=== PATIENT | male | born 1960 | race African-American/Black ===

== ENCOUNTER 2016-12-30 14:18 | Inpatient (IN) | payer OTHER ==
[2016-12-30 15:46] VITALS: BMI 24.0
--- NOTE | 2016-12-30 16:48 | HP ---
CIWA Score - CIWA Score Nausea/Vomitin Muscle Tremors: 4-Moderate,w/Arms Extend Anxiety: 4-Mod. Anxious/Guarded Agitation: 4-Moderately Restless Paroxysmal Sweats: 2 Orientation: 1-Uncertain about Date Tacttile Disturbances: 0-None Auditory Disturbances: 0-None Visual Disturbances: 0-None Headache: 3-Moderate CIWA-Ar Total Score: 20 Admission ROS BHS - HPI Chief Complaint: withdrawal sx Allergies/Adverse Reactions: Allergies Allergy/AdvReac Type Severity Reaction Status Date / Time No Known Allergies Allergy Verified 12/30/16 17:29 History of Present Illness: 56 years old male with long history of alcohol dependence, arthritis and hiv ( not on medication 01/2016) of right ankle denies mental illness, longest sobriety 8 years is admitted to detox Exam Limitations: No Limitations - Ebola screening Have you traveled outside of the country in the last 21 days: No Have you had contact with anyone from an Ebola affected area: No Have you been sick,other than usual withdrawal symptoms: No Do you have a fever: No - Review of Systems Constitutional: Chills, Loss of Appetite, Changes in sleep, Unexplained wgt Loss EENT: reports: No Symptoms Reported Respiratory: reports: No Symptoms reported Cardiac: reports: No Symptoms Reported GI: reports: Nausea, Poor Appetite, Poor Fluid Intake, Vomiting, Indigestion, Abdominal cramping : reports: No Symptoms Reported Musculoskeletal: reports: Joint Pain, Neck Pain Integumentary: reports: No Symptoms Reported Neuro: reports: Tremors Endocrine: reports: No Symptoms Reported Hematology: reports: No Symptoms Reported Psychiatric: reports: Judgement Intact, Mood/Affect Appropiate Other Systems: Reviewed and Negative Patient History - Patient Medical History Hx Anemia: Yes (NO MED) Hx Asthma: No Hx Chronic Obstructive Pulmonary Disease (COPD): No Hx Cancer: No Hx Cardiac Disorders: No Hx Congestive Heart Failure: No Hx Hypertension: No Hx Hypercholesterolemia: No Hx Pacemaker: No HX Cerebrovascular Accident: No Hx Seizures: No Hx Diabetes: No Hx Gastrointestinal Disorders: No Hx Liver Disease: No Hx Genitourinary Disorders: No Hx Sexually Transmitted Disorders: No Hx Renal Disease (ESRD): No Hx Thyroid Disease: No Hx Human Immunodeficiency Virus (HIV): Yes (SINCE 12/18/93 ON MEDS, LAST TAKEN ON 03/20/16) Hx Hepatitis C: Yes Hx Depression: No Hx Suicide Attempt: No (DENIES) Hx Bipolar Disorder: No Hx Schizophrenia: No - Patient Surgical History Past Surgical History: No Hx Neurologic Surgery: No Hx Cataract Extraction: No Hx Cardiac Surgery: No Hx Lung Surgery: No Hx Breast Surgery: No Hx Breast Biopsy: No Hx Abdominal Surgery: No Hx Appendectomy: No Hx Cholecystectomy: No Hx Genitourinary Surgery: No Hx Orthopedic Surgery: No - PPD History Previous Implant?: Yes Documented Results: Positive w/o proof Implanted On Prior R Admission?: No PPD to be Administered?: No - Smoking Cessation Smoking history: Never smoked Have you smoked in the past 12 months: Yes Aproximately how many cigarettes per day: 0 Cigars Per Day: 0 Hx Chewing Tobacco Use: No Initiated information on smoking cessation: No 'Breaking Loose' booklet given: 12/30/16 - Substance & Tx. History Hx Alcohol Use: Yes Hx Substance Use: No Substance Use Type: Alcohol Hx Substance Use Treatment: Yes - Substances Abused Alcohol Route: Oral Frequency: Daily Amount used: 1/2 gallon rum Age of first use: 23 Date of Last Use: 12/29/16 Family Disease History - Family Disease History Family Disease History: Other: Father (), Mother () Admission Physical Exam BHS - Vital Signs Vital Signs: Vital Signs - 24 hr 12/30/16 15:45 Temperature 97 F L Pulse Rate 97 H Respiratory 20 Rate Blood Pressure 131/80 - Physical General Appearance: Yes: Appropriately Dressed, Moderate Distress, Thin, Tremorous, Irritable, Sweating, Anxious HEENTM: Yes: Hearing grossly Normal, Normal ENT Inspection, Normocephalic, Normal Voice Respiratory: Yes: Chest Non-Tender, Lungs Clear, Normal Breath Sounds, No Respiratory Distress, No Accessory Muscle Use Neck: Yes: Supple, Trachea in good position Breast: Yes: Breasts Symetrical Cardiology: Yes: Regular Rhythm, Regular Rate, S1, S2 Abdominal: Yes: Non Tender, Soft Genitourinary: Yes: Within Normal Limits Back: Yes: Normal Inspection Musculoskeletal: Yes: full range of Motion, Gait Steady Extremities: Yes: Normal Range of Motion, Non-Tender, Tremors 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: Yes: Alert, Motor Strength 5/5, Normal Mood/Affect, Normal Response Integumentary: Yes: Warm, Moist Lymphatic: Yes: Within Normal Limits - Diagnostic (1) HIV (human immunodeficiency virus infection) Current Visit: Yes Status: Chronic Comment: not on medication since 01/2016 (2) Hepatitis C Current Visit: Yes Status: Chronic Qualifiers: Viral hepatitis chronicity: chronic Hepatic coma status: without hepatic coma Qualified Code(s): B18.2 - Chronic viral hepatitis C (3) Alcohol dependence with uncomplicated withdrawal Current Visit: Yes Status: Acute (4) GERD (gastroesophageal reflux disease) Current Visit: Yes Status: Acute Qualifiers: Esophagitis presence: without esophagitis Qualified Code(s): K21.9 - Gastro-esophageal reflux disease without esophagitis (5) Weight loss Current Visit: Yes Status: Acute (6) Positive PPD, treated Current Visit: Yes Status: Resolved Cleared for Admission S - Detox or Rehab S Level of Care: Medically Managed Detox Regimen/Protocol: Librium S Breath Alcohol Content Breath Alcohol Content: 0 Urine Drug Screen - Results Drug Screen Negative: Yes
[2016-12-30] MEDS ORDERED: LOPERAMIDE HCL 2 MG CAPSULE PO PRN (16:53)
[2016-12-30] MEDS ORDERED: hydrOXYzine PAMOATE 50 MG CAPSULE (FP) PO PRN (16:53)
[2016-12-30] MEDS ORDERED: ACETAMINOPHEN 325 MG TABLET (FP) PO PRN (16:53)
[2016-12-30] MEDS ORDERED: MAGNESIUM HYDROX 2400MG/30ML ORAL SUSPENSION 30 ML CUP PO PRN (16:53)
[2016-12-30] MEDS ORDERED: guaiFENesin/D-METHORPHAN HB 10 ML UNIT-DOSE CUPS PO PRN (16:53)
[2016-12-30] MEDS ORDERED: IBUPROFEN 400 MG TABLET (FP) PO PRN (16:53)
[2016-12-30] MEDS ORDERED: chlordiazePOXIDE HCL 25 MG CAPSULE PO PRN (16:53)
[2016-12-30] MEDS ORDERED: MENTHOL/PHENOL 1 EACH UD MM PRN (16:53)
[2016-12-30] MEDS ORDERED: P-EPHED 60MG/TRIPROLIDI 2.5MG TABLET PO PRN (16:53)
[2016-12-30] MEDS ORDERED: MAG HYDROX/AL HYDROX/SIMETH 30 ML UNIT-DOSE CUP PO PRN (16:53)
[2016-12-30] MEDS ORDERED: MAGNESIUM CITRATE 300 ML BOTTLE PO PRN (16:53)
[2016-12-30] MEDS ORDERED: chlordiazePOXIDE HCL 25 MG CAPSULE PO ONE (18:00)
[2016-12-30] MEDS ORDERED: diphenhydrAMINE HCL 50 MG CAPSULE PO PRN (22:00)
[2016-12-30] MEDS: chlordiazePOXIDE HCL 25 MG CAPSULE PO SCH (23:25)
[2016-12-30] MEDS: THIAMINE HCL 100 MG TABLET (FP) PO SCH (23:26)
[2016-12-31] MEDS: chlordiazePOXIDE HCL 25 MG CAPSULE PO SCH ×4 (06:15→22:35)
[2016-12-31 09:59] LABS: MCH 28.1 pg (25.7-33.7); MCHC 32.3 g/dl (32.0-35.9); MEAN CELL VOLUME 86.9 fl (80-96); MEAN PLT VOLUME 9.3 fl (7.5-11.1); PLATELET COUNT 280 K/MM3 (134-434); RDW 17.3 % (11.9-15.9); WHITE BLOOD COUNT 6.4 K/mm3 (4.0-10.0)
[2016-12-31] MEDS: PRENATAL VITAMINS W/ FOLIC ACID TABLET (FP) PO SCH (10:27)
[2016-12-31] MEDS: RANITIDINE HCL 150 MG TABLET (FP) PO SCH ×2 (10:27→22:35)
[2016-12-31 10:31] LABS: ALBUMIN 3.9 g/dl (3.4-5.0); ALK PHOS 84 U/L (45-117); ANION GAP 12 (8-16); BILIRUBIN,TOTAL 0.6 mg/dL (0.2-1.0); CALCIUM 9.4 mg/dL (8.5-10.1); CO2 26 mmol/L (21-32); CREATININE 0.7 mg/dL (0.7-1.3); GLUCOSE,RANDOM 86 mg/dL (74-106); SGOT/AST 145 U/L (15-37); SGPT/ALT 161 U/L (12-78)
--- NOTE | 2016-12-31 10:56 | PN ---
[facility] CIWA - CIWA Score Nausea/Vomitin-No Nausea/No Vomiting Muscle Tremors: 4-Moderate,w/Arms Extend Anxiety: 4-Mod. Anxious/Guarded Agitation: 4-Moderately Restless Paroxysmal Sweats: 1-Minimal Palms Moist Orientation: 0-Oriented Tacttile Disturbances: 3-Moderate Itch/Numb/Burn Auditory Disturbances: 0-None Visual Disturbances: 0-None Headache: 0-None Present CIWA-Ar Total Score: 16 S Progress Note (SOAP) Subjective: ANXIETY,IRRITABILITY, C/O NAUSEA AND VOMITING IF HE EATS OR DRINKS SOMETHING, ABDOMINAL DISCOMFORT STATING "I HAVE LIVER CIRRHOSIS AND I WILL TAKE CARE OF IT WHEN I LEAVE HERE". PT DOES NOT APPEAR TO HAVE ANY INSIGHT CONCERNING HIS ALCOHOL DEPENDENCE AND HIS LIVER DISEASE. Objective: 12/31/16 10:56 Vital Signs Temperature 97.1 F L 12/30/16 22:20 Pulse Rate 85 12/30/16 22:20 Respiratory Rate 18 12/31/16 03:30 Blood Pressure 134/97 12/30/16 22:20 O2 Sat by Pulse Oximetry (%) Laboratory Last Values WBC 6.4 K/mm3 (4.0-10.0) D 12/31/16 06:00 RBC 4.87 M/mm3 (4.00-5.60) 12/31/16 06:00 Hgb 13.7 GM/dL (11.7-16.9) 12/31/16 06:00 Hct 42.3 % (35.4-49) 12/31/16 06:00 MCV 86.9 fl (80-96) 12/31/16 06:00 MCHC 32.3 g/dl (32.0-35.9) 12/31/16 06:00 RDW 17.3 % (11.9-15.9) H 12/31/16 06:00 Plt Count 280 K/MM3 (134-434) D 12/31/16 06:00 MPV 9.3 fl (7.5-11.1) D 12/31/16 06:00 Sodium 143 mmol/L (136-145) 12/31/16 06:00 Potassium 4.3 mmol/L (3.5-5.1) 12/31/16 06:00 Chloride 105 mmol/L (98-107) 12/31/16 06:00 Carbon Dioxide 26 mmol/L (21-32) 12/31/16 06:00 Anion Gap 12 (8-16) 12/31/16 06:00 BUN 10 mg/dL (7-18) 12/31/16 06:00 Creatinine 0.7 mg/dL (0.7-1.3) 12/31/16 06:00 Creat Clearance w eGFR > 60 (>60) 12/31/16 06:00 Random Glucose 86 mg/dL (74-106) 12/31/16 06:00 Calcium 9.4 mg/dL (8.5-10.1) 12/31/16 06:00 Total Bilirubin 0.6 mg/dL (0.2-1.0) 12/31/16 06:00 AST 145 U/L (15-37) H D 12/31/16 06:00 ALT 161 U/L (12-78) H D 12/31/16 06:00 Alkaline Phosphatase 84 U/L (45-117) D 12/31/16 06:00 Total Protein 8.0 g/dl (6.4-8.2) 12/31/16 06:00 Albumin 3.9 g/dl (3.4-5.0) D 12/31/16 06:00 LABS NOTED Assessment: 12/31/16 11:03 WITHDRAWAL SX Plan: CONTINUE DETOX REPEAT AST,ALT;INR ON 01/02/17
[2016-12-31 16:34] LABS: URINE APPEARANCE CLEAR; URINE BILIRUBIN NEGATIVE (NEGATIVE); URINE BLOOD NEGATIVE (NEGATIVE); URINE COLOR AMBER; URINE GLUCOSE (UA) NEGATIVE (NEGATIVE); URINE KETONE NEGATIVE (NEGATIVE); URINE LEUK ESTERASE NEGATIVE (NEGATIVE); URINE NITRITE NEGATIVE (NEGATIVE); URINE PROTEIN NEGATIVE (NEGATIVE); URINE UROBILINOGEN 4.0 E.U/dl E.U./dl (0.2-1.0)
[2016-12-31] MEDS: THIAMINE HCL 100 MG TABLET (FP) PO SCH (22:35)
--- NOTE | 2016-12-31 23:36 | EKG ---
Test Reason : Blood Pressure : / mmHG Vent. Rate : 080 BPM Atrial Rate : 080 BPM P-R Int : 118 ms QRS Dur : 080 ms QT Int : 398 ms P-R-T Axes : 069 072 045 degrees QTc Int : 459 ms NORMAL SINUS RHYTHM WITH SINUS ARRHYTHMIA NORMAL ECG NO PREVIOUS ECGS AVAILABLE Confirmed by KHADIJAH ENCINAS, JULITO ([id number]) on 12/31/2016 11:35:49 PM Referred By: Confirmed By:JULITO LUCIO MD
[2017-01-01] MEDS: chlordiazePOXIDE HCL 25 MG CAPSULE PO SCH ×3 (06:13→17:35)
--- NOTE | 2017-01-01 09:59 | PN ---
[facility] CIWA - CIWA Score Nausea/Vomitin-No Nausea/No Vomiting Muscle Tremors: 4-Moderate,w/Arms Extend Anxiety: 4-Mod. Anxious/Guarded Agitation: 4-Moderately Restless Paroxysmal Sweats: 1-Minimal Palms Moist Orientation: 0-Oriented Tacttile Disturbances: 3-Moderate Itch/Numb/Burn Auditory Disturbances: 0-None Visual Disturbances: 0-None Headache: 0-None Present CIWA-Ar Total Score: 16 S Progress Note (SOAP) Subjective: ANXIETY,IRRITABILITY, AGITATION. AMBIVALENT WITH MEDICALLY MANAGED DETOX PROTOCOL. REFUSING LIBRIUM AND CLAIMS HE HAS CIRRHOSIS AND DON'T WANT THE LIBRIUM BECAUSE OF HIS LIVER. Objective: 01/01/17 09:55 Vital Signs Temperature 96.8 F L 01/01/17 09:35 Pulse Rate 105 H 01/01/17 09:35 Respiratory Rate 20 01/01/17 09:35 Blood Pressure 125/90 01/01/17 09:35 O2 Sat by Pulse Oximetry (%) Laboratory Last Values WBC 6.4 K/mm3 (4.0-10.0) D 12/31/16 06:00 RBC 4.87 M/mm3 (4.00-5.60) 12/31/16 06:00 Hgb 13.7 GM/dL (11.7-16.9) 12/31/16 06:00 Hct 42.3 % (35.4-49) 12/31/16 06:00 MCV 86.9 fl (80-96) 12/31/16 06:00 MCHC 32.3 g/dl (32.0-35.9) 12/31/16 06:00 RDW 17.3 % (11.9-15.9) H 12/31/16 06:00 Plt Count 280 K/MM3 (134-434) D 12/31/16 06:00 MPV 9.3 fl (7.5-11.1) D 12/31/16 06:00 Sodium 143 mmol/L (136-145) 12/31/16 06:00 Potassium 4.3 mmol/L (3.5-5.1) 12/31/16 06:00 Chloride 105 mmol/L (98-107) 12/31/16 06:00 Carbon Dioxide 26 mmol/L (21-32) 12/31/16 06:00 Anion Gap 12 (8-16) 12/31/16 06:00 BUN 10 mg/dL (7-18) 12/31/16 06:00 Creatinine 0.7 mg/dL (0.7-1.3) 12/31/16 06:00 Creat Clearance w eGFR > 60 (>60) 12/31/16 06:00 Random Glucose 86 mg/dL (74-106) 12/31/16 06:00 Calcium 9.4 mg/dL (8.5-10.1) 12/31/16 06:00 Total Bilirubin 0.6 mg/dL (0.2-1.0) 12/31/16 06:00 AST 145 U/L (15-37) H D 12/31/16 06:00 ALT 161 U/L (12-78) H D 12/31/16 06:00 Alkaline Phosphatase 84 U/L (45-117) D 12/31/16 06:00 Total Protein 8.0 g/dl (6.4-8.2) 12/31/16 06:00 Albumin 3.9 g/dl (3.4-5.0) D 12/31/16 06:00 Urine Color Jaky 12/31/16 13:25 Urine Appearance Clear 12/31/16 13:25 Urine pH 7.0 (5.0-8.0) 12/31/16 13:25 Ur Specific [place] 1.017 (1.001-1.035) 12/31/16 13:25 Urine Protein Negative (NEGATIVE) 12/31/16 13:25 Urine Glucose (UA) Negative (NEGATIVE) 12/31/16 13:25 Urine Ketones Negative (NEGATIVE) 12/31/16 13:25 Urine Blood Negative (NEGATIVE) 12/31/16 13:25 Urine Nitrite Negative (NEGATIVE) 12/31/16 13:25 Urine Bilirubin Negative (NEGATIVE) 12/31/16 13:25 Urine Urobilinogen 4.0 e.u/dl E.U./dl (0.2-1.0) 12/31/16 13:25 Ur Leukocyte Esterase Negative (NEGATIVE) 12/31/16 13:25 RPR Titer Nonreactive (NONREACTIVE) 12/31/16 06:00 LABS NOTED WNL Assessment: 01/01/17 09:55 WITHDRAWAL SX Plan: CONTINUE DETOX PT EXPLAINED DETOX PROTOCOL AND NEED TO REMAIN SOBER.
[2017-01-01] MEDS: PRENATAL VITAMINS W/ FOLIC ACID TABLET (FP) PO SCH (10:25)
[2017-01-01] MEDS: RANITIDINE HCL 150 MG TABLET (FP) PO SCH ×2 (10:25→22:36)
[2017-01-01] MEDS: THIAMINE HCL 100 MG TABLET (FP) PO SCH (22:36)
[2017-01-01] MEDS: chlordiazePOXIDE 5 MG CAPSULE PO SCH (22:36)
[2017-01-02] MEDS: chlordiazePOXIDE 5 MG CAPSULE PO SCH (05:49)
[2017-01-02 06:05] VITALS: BP 111/86; PULSE 99; TEMP 97.2
--- NOTE | 2017-01-02 09:14 | DS ---
[facility] Detox Discharge Summary Admission Date: 12/30/16 Discharge Date: 01/02/17 - History Present History: Alcohol Dependence Additional Comments: PT HAS NOT BEEN COMPLYING WITH MEDICATION MANAGEMENT PROTOCOL. PT ALSO REFUSED AFTERCARE REFERRAL BY HIS COUNSELOR, BRANDON. STATES HE NEEDS TO F/U AT [facility] WITH HIS COMPOSITE ENGINEER FOR HIS TREATMENT. ALERT ORIENTED X 3. NAD. D/C PT TODAY TO F/U AT [place] PER PT'S NEED. Pertinent Past History: HIV+ WEIGHT LOSS GERD UMBILICAL HERNIA - Physical Exam Results Vital Signs: Vital Signs Temperature 97.2 F L 01/02/17 06:05 Pulse Rate 99 H 01/02/17 06:05 Respiratory Rate 18 01/02/17 06:05 Blood Pressure 111/86 01/02/17 06:05 O2 Sat by Pulse Oximetry (%) - Treatment Hospital Course: Discharged Condition Good - Medication Discharge Medications: Ambulatory Orders Atazanavir [Reyataz -] 300 mg PO HS 07/24/12 Emtricitabine/Tenofovir [Truvada -] 1 tab PO HS 07/24/12 Ritonavir [Norvir] 100 mg PO HS 07/24/12 - Diagnosis (1) Alcohol dependence with uncomplicated withdrawal Current Visit: Yes Status: Acute (2) GERD (gastroesophageal reflux disease) Current Visit: Yes Status: Chronic Qualifiers: Esophagitis presence: without esophagitis Qualified Code(s): K21.9 - Gastro-esophageal reflux disease without esophagitis (3) Weight loss Current Visit: Yes Status: Chronic (4) HIV (human immunodeficiency virus infection) Current Visit: Yes Status: Chronic (5) Hepatitis C Current Visit: Yes Status: Chronic Qualifiers: Viral hepatitis chronicity: chronic Hepatic coma status: without hepatic coma Qualified Code(s): B18.2 - Chronic viral hepatitis C - AMA Did Patient Leave Against Medical Advice: No
[2017-01-02 10:23] LABS: SGOT/AST 139 U/L (15-37); SGPT/ALT 173 U/L (12-78)
[2017-01-02 10:55] LABS: INR 1.17 (0.82-1.09); PROTHROMBIN TIME (PATIENT) 12.9 SEC (9.98-11.88)
[2017-01-02] MEDS ORDERED: chlordiazePOXIDE HCL 10 MG CAPSULE PO SCH (23:00)
== END 2017-01-02 09:18 | disposition home or self-care (01) | DRG 775 ==
LOC: YASAS 14:18 → Y3N 17:41
PROVIDERS: ADMIT Internal Medicine; ATTEND Internal Medicine
PROC: HZ2ZZZZ Detoxification Services for Substance Abuse Treatment (ICD-10-PCS; principal; 2017-01-02)
DX: F10.230 Alcohol dependence with withdrawal, uncomplicated (principal); B18.2 Chronic viral hepatitis C; K21.9 Gastro-esophageal reflux disease without esophagitis; Z21 Asymptomatic human immunodeficiency virus [HIV] infection status; R76.11 Nonspecific reaction to tuberculin skin test without active tuberculosis; R63.4 Abnormal weight loss; Z68.24 Body mass index [BMI] 24.0-24.9, adult
CPT/HCPCS: 36415; 71020-TC; 80053; 81003; 84450; 84460; 85027; 85610; 86593; 93005; 93010

== ENCOUNTER 2017-11-02 10:19 | Inpatient (IN) | payer OTHER ==
[2017-11-02 11:07] VITALS: BMI 22.8
--- NOTE | 2017-11-02 12:21 | HP ---
CIWA Score - CIWA Score Nausea/Vomitin Muscle Tremors: 4-Moderate,w/Arms Extend Anxiety: 3 Agitation: 3 Paroxysmal Sweats: 3 Orientation: 3-Disoriented Date>2 days Tacttile Disturbances: 0-None Auditory Disturbances: 0-None Visual Disturbances: 0-None Headache: 0-None Present CIWA-Ar Total Score: 21 Admission ROS BHS - HPI Chief Complaint: Withdrawal sx Allergies/Adverse Reactions: Allergies Allergy/AdvReac Type Severity Reaction Status Date / Time No Known Allergies Allergy Verified 12/30/16 17:29 History of Present Illness: 57y/o man with a long hx of alcoholism, admitted for detox. Pt has been in previous detox, reports 12 years sobriety while working and attending AA meetings. Exam Limitations: No Limitations - Ebola screening Have you traveled outside of the country in the last 21 days: No (N) Have you had contact with anyone from an Ebola affected area: No Have you been sick,other than usual withdrawal symptoms: No Do you have a fever: No - Review of Systems Constitutional: Diaphoresis EENT: reports: Nose Congestion Respiratory: reports: No Symptoms reported Cardiac: reports: No Symptoms Reported GI: reports: Nausea, Vomiting : reports: Frequency Musculoskeletal: reports: Joint Pain Integumentary: reports: Sweating Neuro: reports: Tremors Endocrine: reports: No Symptoms Reported Hematology: reports: No Symptoms Reported Psychiatric: reports: No Sypmtoms Reported Other Systems: Reviewed and Negative Patient History - Patient Medical History Hx Anemia: No Hx Asthma: No Hx Chronic Obstructive Pulmonary Disease (COPD): No Hx Cancer: No Hx Cardiac Disorders: No Hx Congestive Heart Failure: No Hx Hypertension: No Hx Hypercholesterolemia: No Hx Pacemaker: No HX Cerebrovascular Accident: No Hx Seizures: No Hx Diabetes: No Hx Gastrointestinal Disorders: No Hx Liver Disease: No Hx Genitourinary Disorders: No Hx Sexually Transmitted Disorders: No Hx Renal Disease (ESRD): No Hx Thyroid Disease: No Hx Human Immunodeficiency Virus (HIV): Yes (Pt had recent sensitivity test at [facility], waiting for result to resume meds.) Hx Hepatitis C: Yes (No tx. yet) Hx Depression: No Hx Suicide Attempt: No (DENIES) Hx Bipolar Disorder: No Hx Schizophrenia: No (?schizoaffective d/o many years ago, no meds) Other Medical History: Fractured R ankle 05/2016 - Patient Surgical History Past Surgical History: No Hx Neurologic Surgery: No Hx Cataract Extraction: No Hx Cardiac Surgery: No Hx Lung Surgery: No Hx Breast Surgery: No Hx Breast Biopsy: No Hx Abdominal Surgery: No Hx Appendectomy: No Hx Cholecystectomy: No Hx Genitourinary Surgery: No Hx Section: No Hx Orthopedic Surgery: Yes (Rt ankle ORIF with screws in place.) Anesthesia Reaction: No - PPD History Previous Implant?: Yes Documented Results: Positive w/o proof PPD to be Administered?: No - Smoking Cessation Smoking history: Current every day smoker Have you smoked in the past 12 months: Yes Aproximately how many cigarettes per day: 7 Cigars Per Day: 0 Hx Chewing Tobacco Use: No Initiated information on smoking cessation: Yes 'Breaking Loose' booklet given: 11/02/17 - Substance & Tx. History Hx Alcohol Use: Yes Hx Substance Use: Yes (PCP) Substance Use Type: Alcohol Hx Substance Use Treatment: Yes (Detox at [facility] - 2016) - Substances Abused Alcohol Route: Oral Frequency: Daily Amount used: Sari - 2 PINTS, BEER- 1 SIX PACK Age of first use: 19 Date of Last Use: 11/01/17 PCP Route: Smoking Frequency: 3-6 times per week Amount used: $20 Age of first use: 19 Date of Last Use: 10/30/17 Family Disease History - Family Disease History Family Disease History: Other: Father (), Mother () Admission Physical Exam [facility] - Vital Signs Vital Signs: Vital Signs - 24 hr 11/02/17 10:48 Temperature 96.1 F L Pulse Rate 95 H Respiratory 20 Rate Blood Pressure 105/71 - Physical General Appearance: Yes: Alcohol on Breath, Tremorous, Sweating, Anxious HEENTM: Yes: Nasal Congestion, Rhinorrhea Respiratory: Yes: Chest Non-Tender, Lungs Clear, Normal Breath Sounds Neck: Yes: Supple Breast: Yes: Breast Exam Deferred Cardiology: Yes: Regular Rhythm, Regular Rate, S1, S2 Abdominal: Yes: Normal Bowel Sounds, Non Tender, Flat, Soft Genitourinary: Yes: Within Normal Limits Back: Yes: Within Normal Limits Musculoskeletal: Yes: Within Normal Limits Extremities: Yes: Tremors, Other (Surgical scar R ankle) 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: Yes: Fully Oriented, Alert Integumentary: Yes: Diaphoresis Lymphatic: Yes: Within Normal Limits - Diagnostic (1) PCP dependence Current Visit: Yes Status: Acute (2) Alcohol dependence with uncomplicated withdrawal Current Visit: Yes Status: Acute (3) HIV (human immunodeficiency virus infection) Current Visit: Yes Status: Chronic Comment: not on medication since 01/2016 (4) Hepatitis C Current Visit: No Status: Chronic Qualifiers: Viral hepatitis chronicity: chronic Hepatic coma status: without hepatic coma Qualified Code(s): B18.2 - Chronic viral hepatitis C (5) Nicotine dependence Current Visit: Yes Status: Chronic Qualifiers: Nicotine product type: cigarettes Substance use status: uncomplicated Qualified Code(s): F17.210 - Nicotine dependence, cigarettes, uncomplicated Cleared for Admission S - Detox or Rehab [facility] Level of Care: Medically Managed Detox Regimen/Protocol: Librium [facility] Breath Alcohol Content Breath Alcohol Content: 0 Urine Drug Screen - Results Drug Screen Negative: No Urine Drug Screen Results: PCP-Phencyclidine, BZO-Benzodiazepines
[2017-11-02] MEDS ORDERED: MAGNESIUM HYDROX 2400MG/30ML ORAL SUSPENSION 30 ML CUP PO PRN (12:44)
[2017-11-02] MEDS ORDERED: LOPERAMIDE HCL 2 MG CAPSULE PO PRN (12:44)
[2017-11-02] MEDS ORDERED: guaiFENesin/D-METHORPHAN HB 10 ML UNIT-DOSE CUPS PO PRN (12:44)
[2017-11-02] MEDS ORDERED: ACETAMINOPHEN 325 MG TABLET (FP) PO PRN (12:44)
[2017-11-02] MEDS ORDERED: chlordiazePOXIDE HCL 25 MG CAPSULE PO ONE (12:44)
[2017-11-02] MEDS ORDERED: MENTHOL/PHENOL 1 EACH UD MM PRN (12:44)
[2017-11-02] MEDS ORDERED: P-EPHED 60MG/TRIPROLIDI 2.5MG TABLET PO PRN (12:44)
[2017-11-02] MEDS ORDERED: IBUPROFEN 400 MG TABLET (FP) PO PRN (12:44)
[2017-11-02] MEDS ORDERED: chlordiazePOXIDE HCL 25 MG CAPSULE PO PRN (12:44)
[2017-11-02] MEDS ORDERED: MAGNESIUM CITRATE 300 ML BOTTLE PO PRN (12:44)
[2017-11-02] MEDS ORDERED: NICOTINE POLACRILEX 2 MG GUM BC PRN (12:44)
[2017-11-02] MEDS ORDERED: MAG HYDROX/AL HYDROX/SIMETH 30 ML UNIT-DOSE CUP PO PRN (12:44)
[2017-11-02] MEDS: NICOTINE 14 MG/24 HOURS TOPICAL PATCH TD SCH (13:37)
[2017-11-02] MEDS: chlordiazePOXIDE HCL 25 MG CAPSULE PO SCH ×2 (17:17→22:31)
[2017-11-02 20:47] LABS: URINE APPEARANCE CLEAR; URINE BILIRUBIN NEGATIVE (NEGATIVE); URINE BLOOD NEGATIVE (NEGATIVE); URINE COLOR YELLOW; URINE GLUCOSE (UA) NEGATIVE (NEGATIVE); URINE KETONE NEGATIVE (NEGATIVE); URINE NITRITE NEGATIVE (NEGATIVE); URINE PROTEIN NEGATIVE (NEGATIVE); URINE UROBILINOGEN NEGATIVE mg/dL (0.2-1.0)
[2017-11-02] MEDS: THIAMINE HCL 100 MG TABLET (FP) PO SCH (22:32)
[2017-11-02 22:43] LABS: URINE LEUK ESTERASE Negative (NEGATIVE)
[2017-11-03] MEDS: chlordiazePOXIDE HCL 25 MG CAPSULE PO SCH ×4 (06:00→22:17)
[2017-11-03 10:06] LABS: MCH 27.8 pg (25.7-33.7); MCHC 32.5 g/dl (32.0-35.9); MEAN CELL VOLUME 85.6 fl (80-96); MEAN PLT VOLUME 8.7 fl (7.5-11.1); PLATELET COUNT 287 K/MM3 (134-434); WHITE BLOOD COUNT 6.3 K/mm3 (4.0-10.0)
[2017-11-03 10:24] LABS: ALBUMIN 3.3 g/dl (3.4-5.0); ANION GAP 5 (8-16); CALCIUM 8.4 mg/dL (8.5-10.1); CO2 30 mmol/L (21-32); GLUCOSE,RANDOM 86 mg/dL (74-106)
[2017-11-03 10:28] LABS: ALK PHOS 140 U/L (45-117); BILIRUBIN,TOTAL 0.6 mg/dL (0.2-1.0); CREATININE 0.8 mg/dL (0.7-1.3); SGOT/AST 171 U/L (15-37); SGPT/ALT 140 U/L (12-78); TOT PROT 7.5 g/dl (6.4-8.2)
[2017-11-03] MEDS: PRENATAL VITAMINS W/ FOLIC ACID TABLET (FP) PO SCH (10:56)
[2017-11-03] MEDS: NICOTINE 14 MG/24 HOURS TOPICAL PATCH TD SCH (10:59)
--- NOTE | 2017-11-03 12:04 | PN ---
S CIWA - CIWA Score Nausea/Vomitin-No Nausea/No Vomiting Muscle Tremors: 4-Moderate,w/Arms Extend Anxiety: 3 Agitation: 3 Paroxysmal Sweats: 3 Orientation: 0-Oriented Tacttile Disturbances: 0-None Auditory Disturbances: 0-None Visual Disturbances: 0-None Headache: 0-None Present CIWA-Ar Total Score: 13 S Progress Note (SOAP) Subjective: agitation sweats chills interrupted sleep Objective: 11/03/17 11:58 Vital Signs Temperature 98.2 F 11/03/17 09:36 Pulse Rate 93 H 11/03/17 09:36 Respiratory Rate 18 11/03/17 09:36 Blood Pressure 123/80 11/03/17 09:36 O2 Sat by Pulse Oximetry (%) Laboratory Tests 11/02/17 11/03/17 11/03/17 15:38 05:45 05:45 WBC 6.3 RBC 4.58 Hgb 12.7 Hct 39.2 MCV 85.6 MCH 27.8 MCHC 32.5 RDW 17.0 H Plt Count 287 MPV 8.7 Sodium 142 Potassium 4.4 Chloride 107 Carbon Dioxide 30 Anion Gap 5 L BUN 10 Creatinine 0.8 Creat Clearance w eGFR > 60 Random Glucose 86 Calcium 8.4 L Total Bilirubin 0.6 AST 171 H D ALT 140 H Alkaline Phosphatase 140 H D Total Protein 7.5 Albumin 3.3 L Urine Color Yellow Urine Appearance Clear Urine pH 5.0 D Ur Specific [place] 1.013 Urine Protein Negative Urine Glucose (UA) Negative Urine Ketones Negative Urine Blood Negative Urine Nitrite Negative Urine Bilirubin Negative Urine Urobilinogen Negative Ur Leukocyte Esterase Negative RPR Titer 11/03/17 05:45 WBC RBC Hgb Hct MCV MCH MCHC RDW Plt Count MPV Sodium Potassium Chloride Carbon Dioxide Anion Gap BUN Creatinine Creat Clearance w eGFR Random Glucose Calcium Total Bilirubin AST ALT Alkaline Phosphatase Total Protein Albumin Urine Color Urine Appearance Urine pH Ur Specific [place] Urine Protein Urine Glucose (UA) Urine Ketones Urine Blood Urine Nitrite Urine Bilirubin Urine Urobilinogen Ur Leukocyte Esterase RPR Titer Nonreactive elevated ast/alt; d/c tylenol aaox3 ambulating no acute distress Assessment: 11/03/17 11:59 withdrawal sx Plan: continue detox increase fluids
--- NOTE | 2017-11-03 13:33 | EKG ---
Test Reason : Blood Pressure : / mmHG Vent. Rate : 095 BPM Atrial Rate : 095 BPM P-R Int : 120 ms QRS Dur : 080 ms QT Int : 362 ms P-R-T Axes : 071 072 060 degrees QTc Int : 454 ms NORMAL SINUS RHYTHM POSSIBLE ANTERIOR INFARCT , AGE UNDETERMINED ABNORMAL ECG WHEN COMPARED WITH ECG OF 30-DEC-2016 18:22, NO SIGNIFICANT CHANGE WAS FOUND Confirmed by JULITO LUCIO MD ([id number]) on 11/03/2017 1:33:03 PM Referred By: Confirmed By:JULITO LUCIO MD
[2017-11-03] MEDS: THIAMINE HCL 100 MG TABLET (FP) PO SCH (22:18)
[2017-11-04] MEDS: chlordiazePOXIDE HCL 25 MG CAPSULE PO SCH ×2 (05:50→10:33)
[2017-11-04] MEDS: PRENATAL VITAMINS W/ FOLIC ACID TABLET (FP) PO SCH (10:33)
[2017-11-04] MEDS: NICOTINE 14 MG/24 HOURS TOPICAL PATCH TD SCH (10:33)
--- NOTE | 2017-11-04 11:49 | PN ---
[facility] CIWA - CIWA Score Nausea/Vomitin-No Nausea/No Vomiting Muscle Tremors: 4-Moderate,w/Arms Extend Anxiety: 3 Agitation: 2 Paroxysmal Sweats: 2 Orientation: 0-Oriented Tacttile Disturbances: 0-None Auditory Disturbances: 0-None Visual Disturbances: 0-None Headache: 0-None Present CIWA-Ar Total Score: 11 S Progress Note (SOAP) Subjective: body aches sweats shakes interrupted sleep Objective: 11/04/17 11:48 Vital Signs Temperature 98.1 F 11/04/17 09:29 Pulse Rate 84 11/04/17 09:29 Respiratory Rate 18 11/04/17 09:29 Blood Pressure 125/79 11/04/17 09:29 O2 Sat by Pulse Oximetry (%) Laboratory Tests 11/02/17 11/03/17 11/03/17 15:38 05:45 05:45 WBC 6.3 RBC 4.58 Hgb 12.7 Hct 39.2 MCV 85.6 MCH 27.8 MCHC 32.5 RDW 17.0 H Plt Count 287 MPV 8.7 Sodium 142 Potassium 4.4 Chloride 107 Carbon Dioxide 30 Anion Gap 5 L BUN 10 Creatinine 0.8 Creat Clearance w eGFR > 60 Random Glucose 86 Calcium 8.4 L Total Bilirubin 0.6 AST 171 H D ALT 140 H Alkaline Phosphatase 140 H D Total Protein 7.5 Albumin 3.3 L Urine Color Yellow Urine Appearance Clear Urine pH 5.0 D Ur Specific [place] 1.013 Urine Protein Negative Urine Glucose (UA) Negative Urine Ketones Negative Urine Blood Negative Urine Nitrite Negative Urine Bilirubin Negative Urine Urobilinogen Negative Ur Leukocyte Esterase Negative RPR Titer 11/03/17 05:45 WBC RBC Hgb Hct MCV MCH MCHC RDW Plt Count MPV Sodium Potassium Chloride Carbon Dioxide Anion Gap BUN Creatinine Creat Clearance w eGFR Random Glucose Calcium Total Bilirubin AST ALT Alkaline Phosphatase Total Protein Albumin Urine Color Urine Appearance Urine pH Ur Specific [place] Urine Protein Urine Glucose (UA) Urine Ketones Urine Blood Urine Nitrite Urine Bilirubin Urine Urobilinogen Ur Leukocyte Esterase RPR Titer Nonreactive aaox3 ambulating no acute distress Assessment: 11/04/17 11:48 withdrawal sx Plan: continue detox increase fluids motrin/tylenol prn
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
[2017-11-04] MEDS: chlordiazePOXIDE 5 MG CAPSULE PO SCH ×2 (17:18→22:20)
[2017-11-04] MEDS: THIAMINE HCL 100 MG TABLET (FP) PO SCH (22:21)
[2017-11-05] MEDS: chlordiazePOXIDE 5 MG CAPSULE PO SCH (05:45)
[2017-11-05 06:20] VITALS: BP 121/50; PULSE 72; TEMP 98.2
--- NOTE | 2017-11-05 07:27 | DS ---
[facility] Detox Discharge Summary Admission Date: 11/02/17 Discharge Date: 11/05/17 - History Present History: Alcohol Dependence, Cannabis Dependence, Cocaine Dependence, Pcp Dependence Additional Comments: 57 years old male admitted to detox from alcohol, cocaine, PCP and cannabis dependence is leaving against medical advice. Patient states that he is leaving for personal reasons and his insurance allows him to be here foe 3 days. Risk and consequences of leaving aganst medical advice explained to him. he verbalized understanding of instructions and signed the AMA form. Pertinent Past History: HIV, Hep C, nicotine dependence and GERD. - Physical Exam Results Vital Signs: Vital Signs Temperature 98.2 F 11/05/17 06:19 Pulse Rate 72 11/05/17 06:19 Respiratory Rate 18 11/05/17 06:19 Blood Pressure 121/50 11/05/17 06:19 O2 Sat by Pulse Oximetry (%) Laboratory Last Values WBC 6.3 K/mm3 (4.0-10.0) 11/03/17 05:45 RBC 4.58 M/mm3 (4.00-5.60) 11/03/17 05:45 Hgb 12.7 GM/dL (11.7-16.9) 11/03/17 05:45 Hct 39.2 % (35.4-49) 11/03/17 05:45 MCV 85.6 fl (80-96) 11/03/17 05:45 MCH 27.8 pg (25.7-33.7) 11/03/17 05:45 MCHC 32.5 g/dl (32.0-35.9) 11/03/17 05:45 RDW 17.0 % (11.9-15.9) H 11/03/17 05:45 Plt Count 287 K/MM3 (134-434) 11/03/17 05:45 MPV 8.7 fl (7.5-11.1) 11/03/17 05:45 Sodium 142 mmol/L (136-145) 11/03/17 05:45 Potassium 4.4 mmol/L (3.5-5.1) 11/03/17 05:45 Chloride 107 mmol/L (98-107) 11/03/17 05:45 Carbon Dioxide 30 mmol/L (21-32) 11/03/17 05:45 Anion Gap 5 (8-16) L 11/03/17 05:45 BUN 10 mg/dL (7-18) 11/03/17 05:45 Creatinine 0.8 mg/dL (0.7-1.3) 11/03/17 05:45 Creat Clearance w eGFR > 60 (>60) 11/03/17 05:45 Random Glucose 86 mg/dL (74-106) 11/03/17 05:45 Calcium 8.4 mg/dL (8.5-10.1) L 11/03/17 05:45 Total Bilirubin 0.6 mg/dL (0.2-1.0) 11/03/17 05:45 AST 171 U/L (15-37) H D 11/03/17 05:45 ALT 140 U/L (12-78) H 11/03/17 05:45 Alkaline Phosphatase 140 U/L (45-117) H D 11/03/17 05:45 Total Protein 7.5 g/dl (6.4-8.2) 11/03/17 05:45 Albumin 3.3 g/dl (3.4-5.0) L 11/03/17 05:45 Urine Color Yellow 11/02/17 15:38 Urine Appearance Clear 11/02/17 15:38 Urine pH 5.0 (5.0-8.0) D 11/02/17 15:38 Ur Specific [place] 1.013 (1.001-1.035) 11/02/17 15:38 Urine Protein Negative (NEGATIVE) 11/02/17 15:38 Urine Glucose (UA) Negative (NEGATIVE) 11/02/17 15:38 Urine Ketones Negative (NEGATIVE) 11/02/17 15:38 Urine Blood Negative (NEGATIVE) 11/02/17 15:38 Urine Nitrite Negative (NEGATIVE) 11/02/17 15:38 Urine Bilirubin Negative (NEGATIVE) 11/02/17 15:38 Urine Urobilinogen Negative mg/dL (0.2-1.0) 11/02/17 15:38 Ur Leukocyte Esterase Negative (NEGATIVE) 11/02/17 15:38 RPR Titer Nonreactive (NONREACTIVE) 11/03/17 05:45 labs reviewed Pertinent Admission Physical Exam Findings: Alcohol withdrawal symptoms - Medication Discharge Medications: Ambulatory Orders Atazanavir [Reyataz -] 300 mg PO HS 07/24/12 Emtricitabine/Tenofovir [Truvada -] 1 tab PO HS 07/24/12 Ritonavir [Norvir] 100 mg PO HS 07/24/12 - Diagnosis (1) Alcohol dependence with uncomplicated withdrawal Status: Chronic (2) Cannabis dependence Status: Chronic (3) PCP dependence Status: Chronic (4) GERD (gastroesophageal reflux disease) Status: Chronic Qualifiers: Esophagitis presence: without esophagitis Qualified Code(s): K21.9 - Gastro -esophageal reflux disease without esophagitis (5) HIV (human immunodeficiency virus infection) Status: Chronic (6) Hepatitis C Status: Chronic Qualifiers: Viral hepatitis chronicity: chronic Hepatic coma status: without hepatic coma Qualified Code(s): B18.2 - Chronic viral hepatitis C (7) Nicotine dependence Status: Chronic Qualifiers: Nicotine product type: cigarettes Substance use status: uncomplicated Qualified Code(s): F17.210 - Nicotine dependence, cigarettes, uncomplicated - AMA Did Patient Leave Against Medical Advice: Yes
[2017-11-05] MEDS ORDERED: chlordiazePOXIDE HCL 10 MG CAPSULE PO SCH (17:00)
== END 2017-11-05 06:10 | disposition left against medical advice (07) | DRG 770 ==
LOC: YASAS 10:19 → Y6N 12:41
PROVIDERS: ADMIT Internal Medicine; ATTEND Internal Medicine
PROC: HZ2ZZZZ Detoxification Services for Substance Abuse Treatment (ICD-10-PCS; principal; 2017-11-02)
DX: F10.230 Alcohol dependence with withdrawal, uncomplicated (principal); F14.20 Cocaine dependence, uncomplicated; F12.20 Cannabis dependence, uncomplicated; F16.20 Hallucinogen dependence, uncomplicated; F17.210 Nicotine dependence, cigarettes, uncomplicated; B18.2 Chronic viral hepatitis C; K21.9 Gastro-esophageal reflux disease without esophagitis; Z21 Asymptomatic human immunodeficiency virus [HIV] infection status
CPT/HCPCS: 36415; 80053; 81003; 85027; 86593; 93005; 93010

== ENCOUNTER 2018-06-17 12:42 | Inpatient (IN) | payer OTHER ==
[2018-06-17 14:14] VITALS: BMI 21.9
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
[2018-06-17] MEDS ORDERED: chlordiazePOXIDE HCL 25 MG CAPSULE PO PRN (18:28)
[2018-06-17] MEDS ORDERED: MENTHOL/PHENOL 1 EACH UD MM PRN (18:28)
[2018-06-17] MEDS ORDERED: ACETAMINOPHEN 325 MG TABLET (FP) PO PRN (18:28)
[2018-06-17] MEDS ORDERED: hydrOXYzine PAMOATE 50 MG CAPSULE (FP) PO PRN (18:28)
[2018-06-17] MEDS ORDERED: guaiFENesin/D-METHORPHAN HB 10 ML UNIT-DOSE CUPS PO PRN (18:28)
[2018-06-17] MEDS ORDERED: P-EPHED 60MG/TRIPROLIDI 2.5MG TABLET PO PRN (18:28)
[2018-06-17] MEDS ORDERED: LOPERAMIDE HCL 2 MG CAPSULE PO PRN (18:28)
[2018-06-17] MEDS ORDERED: MAGNESIUM CITRATE 300 ML BOTTLE PO PRN (18:28)
[2018-06-17] MEDS ORDERED: MAGNESIUM HYDROX 2400MG/30ML ORAL SUSPENSION 30 ML CUP PO PRN (18:28)
[2018-06-17] MEDS ORDERED: IBUPROFEN 400 MG TABLET (FP) PO PRN (18:28)
[2018-06-17] MEDS ORDERED: MAG HYDROX/AL HYDROX/SIMETH 30 ML UNIT-DOSE CUP PO PRN (18:28)
[2018-06-17] MEDS ORDERED: MELATONIN 5 MG TABLETS PO PRN (22:00)
[2018-06-17] MEDS: NAPROXEN 500 MG TABLET (FP) PO SCH (23:21)
[2018-06-17] MEDS: chlordiazePOXIDE HCL 25 MG CAPSULE PO SCH (23:21)
[2018-06-17] MEDS: THIAMINE HCL 100 MG TABLET (FP) PO SCH (23:23)
[2018-06-18 02:15] LABS: URINE APPEARANCE CLEAR; URINE BILIRUBIN NEGATIVE (<2.0 mg/dL); URINE COLOR STRAW; URINE GLUCOSE (UA) NEGATIVE (NEGATIVE); URINE KETONE NEGATIVE (NEGATIVE); URINE LEUK ESTERASE NEGATIVE (NEGATIVE); URINE NITRITE NEGATIVE (NEGATIVE); URINE PROTEIN NEGATIVE (NEGATIVE); URINE UROBILINOGEN NEGATIVE mg/dL (0.2-1.0)
[2018-06-18] MEDS: chlordiazePOXIDE HCL 25 MG CAPSULE PO SCH ×3 (05:38→17:41)
[2018-06-18] MEDS ORDERED: PRENATAL VITAMINS W/ FOLIC ACID TABLET (FP) PO SCH (10:00)
[2018-06-18] MEDS ORDERED: SILVER SULFADIAZINE 1% TOP CREAM 50 GM JAR TP SCH (10:00)
[2018-06-18 10:10] LABS: HEMATOCRIT 39.3 % (35.4-49); HEMOGLOBIN 12.7 GM/dL (11.7-16.9); MCH 28.5 pg (25.7-33.7); MCHC 32.2 g/dl (32.0-35.9); MEAN CELL VOLUME 88.6 fl (80-96); MEAN PLT VOLUME 8.3 fl (7.5-11.1); PLATELET COUNT 280 K/MM3 (134-434); RBC 4.44 M/mm3 (4.00-5.60); RDW 18.3 % (11.9-15.9); WHITE BLOOD COUNT 4.6 K/mm3 (4.0-10.0)
[2018-06-18] MEDS: NAPROXEN 500 MG TABLET (FP) PO SCH ×2 (10:44→22:21)
[2018-06-18 10:49] LABS: BILIRUBIN,TOTAL 0.3 mg/dL (0.2-1.0); CHLORIDE 109 mmol/L (98-107); POTASSIUM 4.8 mmol/L (3.5-5.1); SGOT/AST 49 U/L (15-37); SGPT/ALT 56 U/L (12-78); SODIUM 144 mmol/L (136-145)
--- NOTE | 2018-06-18 10:52 | PN ---
S CIWA - CIWA Score Nausea/Vomitin-No Nausea/No Vomiting Muscle Tremors: 3 Anxiety: 4-Mod. Anxious/Guarded Agitation: 4-Moderately Restless Paroxysmal Sweats: 1-Minimal Palms Moist Orientation: 0-Oriented Tacttile Disturbances: 0-None Auditory Disturbances: 0-None Visual Disturbances: 0-None Headache: 0-None Present CIWA-Ar Total Score: 12 BHS Progress Note (SOAP) Subjective: ANXIETY,IRRITABILITY,PAIN TO BOTH KNEES AND LEGS. Objective: 06/18/18 10:52 Vital Signs 06/18/18 06/18/18 06/18/18 03:30 06:30 06:36 Temperature 98.0 F Pulse Rate 72 Respiratory 18 18 18 Rate Blood Pressure 138/87 Laboratory Tests 06/17/18 06/18/18 22:36 07:30 WBC 4.6 RBC 4.44 Hgb 12.7 Hct 39.3 MCV 88.6 MCH 28.5 MCHC 32.2 RDW 18.3 H Plt Count 280 MPV 8.3 Urine Color Straw Urine Appearance Clear Urine pH 6.0 Ur Specific [place] 1.002 Urine Protein Negative Urine Glucose (UA) Negative Urine Ketones Negative Urine Blood Negative Urine Nitrite Negative Urine Bilirubin Negative Urine Urobilinogen Negative Ur Leukocyte Esterase Negative OTHER LABS PENDING Assessment: 06/18/18 10:52 WITHDRAWAL SX Plan: CONTINUE DETOX
[2018-06-18 11:06] LABS: ALBUMIN 3.1 g/dl (3.4-5.0); ALK PHOS 82 U/L (45-117); ANION GAP 6 (8-16); BLOOD UREA NITROGEN 14 mg/dL (7-18); CALCIUM 8.3 mg/dL (8.5-10.1); CO2 29 mmol/L (21-32); CREATININE 0.8 mg/dL (0.7-1.3); GLUCOSE,RANDOM 77 mg/dL (74-106); TOT PROT 6.6 g/dl (6.4-8.2)
--- NOTE | 2018-06-18 14:26 | EKG ---
Test Reason : Blood Pressure : / mmHG Vent. Rate : 069 BPM Atrial Rate : 069 BPM P-R Int : 102 ms QRS Dur : 072 ms QT Int : 424 ms P-R-T Axes : 056 064 050 degrees QTc Int : 454 ms SINUS RHYTHM WITH SHORT RI OTHERWISE NORMAL ECG WHEN COMPARED WITH ECG OF 02-NOV-2017 14:33, NO SIGNIFICANT CHANGE WAS FOUND Confirmed by KATIE ECHEVARRIA MD ([id number]) on 06/18/2018 2:26:08 PM Referred By: Confirmed By:KATIE ECHEVARRIA MD
--- NOTE | 2018-06-18 15:49 | CONSULT ---
[facility] Psychiatric Consult - Data Date of interview: 06/18/18 Admission source: [facility] Identifying data: Patient is a 57 year old man, father of two, unemployed, domiciled, and supported by [facility]. This is one of multiple admissions for patient. Pt. admitted to for alcohol dependence. Substance Abuse History: Smoking Cessation. Smoking history: Former smoker. Have you smoked in the past 12 months: No. Aproximately how many cigarettes per day: 0. Cigars Per Day: 0. Hx Chewing Tobacco Use: No. Initiated information on smoking cessation: Yes. 'Breaking Loose' booklet given: . - Substance & Tx. History. Hx Alcohol Use: Yes. Hx Substance Use: Yes. Substance Use Type: Alcohol. Hx Substance Use Treatment: Yes ( Last detox -11/05/17). - Substances Abused. Alcohol. Route: Oral. Frequency: Daily. Amount used: 2 pints rum. Age of first use: 24. Date of Last Use: Medical History: HIV, GERD Psychiatric History: Patient denies h/o psychiatric hospitalization. Reports seeing a psychiatrist approximately five years ago after his parents . Patient with history of nonadherence to OPD. As per chart patient has a history of schizoaffective, although patient states he no longer has a mental illness. Patient denies h/o suicide attempt. Physical/Sexual Abuse/Trauma History: Denies. Mental Status Exam - Mental Status Exam Alert and Oriented to: Time, Place, Person Cognitive Function: Good Patient Appearance: Well Groomed Mood: Euthymic Affect: Mood Congruent Patient Behavior: Appropriate, Cooperative Speech Pattern: Appropriate Voice Loudness: Normal Thought Process: Intact, Goal Oriented Thought Disorder: Not Present Hallucinations: Denies Suicidal Ideation: Denies Homicidal Ideation: Denies Insight/Judgement: Poor Sleep: Fair Appetite: Fair Muscle strength/Tone: Normal Gait/Station: Other (Ambulates with a cane.) Psychiatric Findings - Problem List ([place] 1, 2,3) (1) Alcohol dependence with uncomplicated withdrawal Current Visit: Yes Status: Acute (2) GERD (gastroesophageal reflux disease) Current Visit: Yes Status: Chronic Qualifiers: Esophagitis presence: without esophagitis Qualified Code(s): K21.9 - Gastro -esophageal reflux disease without esophagitis (3) HIV (human immunodeficiency virus infection) Current Visit: Yes Status: Chronic - Initial Treatment Plan Initial Treatment Plan: Psychoeducation provided. Detoxification in progress. Observation.
[2018-06-18] MEDS: THIAMINE HCL 100 MG TABLET (FP) PO SCH (22:21)
--- NOTE | 2018-06-18 22:38 | PN ---
[facility] CIWA - CIWA Score Nausea/Vomitin-No Nausea/No Vomiting Muscle Tremors: 1-None Visible, but [place] Anxiety: 3 Agitation: 2 Paroxysmal Sweats: 2 Orientation: 0-Oriented Tacttile Disturbances: 1-Very Mild Itch/Numbness Auditory Disturbances: 0-None Visual Disturbances: 0-None Headache: 1-Very Mild CIWA-Ar Total Score: 10
[2018-06-18] MEDS ORDERED: chlordiazePOXIDE HCL 25 MG CAPSULE PO SCH (23:00)
[2018-06-18 23:23] VITALS: BP 123/84; PULSE 74; TEMP 97.9
--- NOTE | 2018-06-19 01:10 | PN ---
S Progress Note Note: Informed client signed out ama due to not being able to receive percocets for his pain mgmt. Did not wish to speak to provider
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
[2018-06-19] MEDS ORDERED: GAUZE BANDAGE TP SCH (10:00)
[2018-06-19] MEDS ORDERED: chlordiazePOXIDE 5 MG CAPSULE PO SCH (23:00)
[2018-06-20] MEDS ORDERED: chlordiazePOXIDE HCL 10 MG CAPSULE PO SCH (23:00)
== END 2018-06-19 00:38 | disposition home or self-care (01) | DRG 775 ==
LOC: YASAS 12:42 → Y3N 16:10
PROVIDERS: ADMIT Surgery; ATTEND Surgery
PROC: 2W2NX4Z Dressing of Right Upper Leg using Bandage (ICD-10-PCS; principal; 2018-06-17)
PROC: 2W2RX4Z Dressing of Left Lower Leg using Bandage (ICD-10-PCS; 2018-06-17)
PROC: HZ2ZZZZ Detoxification Services for Substance Abuse Treatment (ICD-10-PCS; 2018-06-17)
PROC: HZ2ZZZZ Detoxification Services for Substance Abuse Treatment (ICD-10-PCS; 2018-06-17)
DX: F10.230 Alcohol dependence with withdrawal, uncomplicated (principal); K21.9 Gastro-esophageal reflux disease without esophagitis; Z21 Asymptomatic human immunodeficiency virus [HIV] infection status; Z86.19 Personal history of other infectious and parasitic diseases; R26.89 Other abnormalities of gait and mobility; Z99.89 Dependence on other enabling machines and devices; T24.211A Burn of second degree of right thigh, initial encounter; T24.222A Burn of second degree of left knee, initial encounter; X10.2XXA Contact with fats and cooking oils, initial encounter; Y93.89 Activity, other specified; Y92.9 Unspecified place or not applicable; Y99.9 Unspecified external cause status
CPT/HCPCS: 36415; 71046-TC-FY; 80053; 81003; 85027; 86593; 93005; 93010

== ENCOUNTER 2018-07-03 11:54 | Inpatient (IN) | payer OTHER ==
[2018-07-03 12:37] VITALS: BMI 21.6
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
[2018-07-03] MEDS ORDERED: guaiFENesin/D-METHORPHAN HB 10 ML UNIT-DOSE CUPS PO PRN (16:18)
[2018-07-03] MEDS ORDERED: P-EPHED 60MG/TRIPROLIDI 2.5MG TABLET PO PRN (16:18)
[2018-07-03] MEDS ORDERED: MAGNESIUM CITRATE 300 ML BOTTLE PO PRN (16:18)
[2018-07-03] MEDS ORDERED: MAGNESIUM HYDROX 2400MG/30ML ORAL SUSPENSION 30 ML CUP PO PRN (16:18)
[2018-07-03] MEDS ORDERED: MAG HYDROX/AL HYDROX/SIMETH 30 ML UNIT-DOSE CUP PO PRN (16:18)
[2018-07-03] MEDS ORDERED: LOPERAMIDE HCL 2 MG CAPSULE PO PRN (16:18)
[2018-07-03] MEDS ORDERED: ACETAMINOPHEN 325 MG TABLET (FP) PO PRN (16:18)
[2018-07-03] MEDS ORDERED: IBUPROFEN 400 MG TABLET (FP) PO PRN (16:18)
[2018-07-03] MEDS ORDERED: MENTHOL/PHENOL 1 EACH UD MM PRN (16:18)
[2018-07-03] MEDS ORDERED: PT OWN MED DRAWER 7, Y5N ONE (18:17)
[2018-07-03] MEDS ORDERED: MELATONIN 5 MG TABLETS PO PRN (22:00)
[2018-07-03] MEDS: SILVER SULFADIAZINE 1% TOP CREAM 400 GM JAR TP SCH (22:09)
[2018-07-03] MEDS: THIAMINE HCL 100 MG TABLET (FP) PO SCH (22:09)
[2018-07-04] MEDS: ABACAVIR/DOLUTEGRAVIR/LAMIVUDI (TRIUMEQ) TABLET -NF PO SCH (07:07)
--- NOTE | 2018-07-04 10:18 | EKG ---
Test Reason : Blood Pressure : / mmHG Vent. Rate : 063 BPM Atrial Rate : 063 BPM P-R Int : 104 ms QRS Dur : 082 ms QT Int : 422 ms P-R-T Axes : 054 067 052 degrees QTc Int : 431 ms SINUS RHYTHM WITH SINUS ARRHYTHMIA WITH SHORT DE OTHERWISE NORMAL ECG WHEN COMPARED WITH ECG OF 17-JUN-2018 18:56, NO SIGNIFICANT CHANGE WAS FOUND Confirmed by SANTA ENCINAS, TATYANA ([id number]) on 07/04/2018 10:18:08 AM Referred By: Confirmed By:TATYANA PRATT MD
[2018-07-04 10:35] LABS: HEMATOCRIT 37.4 % (35.4-49); HEMOGLOBIN 12.2 GM/dL (11.7-16.9); MCH 28.8 pg (25.7-33.7); MCHC 32.7 g/dl (32.0-35.9); MEAN CELL VOLUME 88.1 fl (80-96); MEAN PLT VOLUME 8.6 fl (7.5-11.1); PLATELET COUNT 279 K/MM3 (134-434); RBC 4.24 M/mm3 (4.00-5.60); WHITE BLOOD COUNT 5.9 K/mm3 (4.0-10.0)
[2018-07-04 10:47] LABS: CHLORIDE 105 mmol/L (98-107); POTASSIUM 4.7 mmol/L (3.5-5.1); SODIUM 140 mmol/L (136-145)
[2018-07-04 10:55] LABS: URINE APPEARANCE SLCLOUDY; URINE BILIRUBIN NEGATIVE (<2.0 mg/dL); URINE COLOR YELLOW; URINE GLUCOSE (UA) NEGATIVE (NEGATIVE); URINE KETONE NEGATIVE (NEGATIVE); URINE LEUK ESTERASE TRACE (NEGATIVE); URINE NITRITE NEGATIVE (NEGATIVE); URINE PROTEIN NEGATIVE (NEGATIVE); URINE UROBILINOGEN NEGATIVE mg/dL (0.2-1.0)
[2018-07-04 10:58] LABS: EPI CELLS RARE /HPF (FEW); URINE BACTERIA MANY /hpf (NONE SEEN); URINE MUCUS RARE
[2018-07-04] MEDS: SILVER SULFADIAZINE 1% TOP CREAM 400 GM JAR TP SCH ×2 (10:58→22:09)
[2018-07-04] MEDS: PRENATAL VITAMINS W/ FOLIC ACID TABLET (FP) PO SCH (10:58)
[2018-07-04 11:12] LABS: ALBUMIN 3.6 g/dl (3.4-5.0); ALK PHOS 90 U/L (45-117); ANION GAP 3 (8-16); BILIRUBIN,TOTAL 0.4 mg/dL (0.2-1.0); BLOOD UREA NITROGEN 11 mg/dL (7-18); CALCIUM 9.1 mg/dL (8.5-10.1); CO2 32 mmol/L (21-32); CREATININE 0.9 mg/dL (0.7-1.3); GLUCOSE,RANDOM 119 mg/dL (74-106); SGOT/AST 78 U/L (15-37); SGPT/ALT 71 U/L (12-78); TOT PROT 7.8 g/dl (6.4-8.2)
[2018-07-04] MEDS ORDERED: PT OWN MED DRAWER 7, Y5N ONE (12:37)
[2018-07-04] MEDS: THIAMINE HCL 100 MG TABLET (FP) PO SCH (22:09)
[2018-07-05] MEDS: ABACAVIR/DOLUTEGRAVIR/LAMIVUDI (TRIUMEQ) TABLET -NF PO SCH (07:26)
[2018-07-05] MEDS: SILVER SULFADIAZINE 1% TOP CREAM 400 GM JAR TP SCH ×2 (09:37→22:33)
[2018-07-05] MEDS: PRENATAL VITAMINS W/ FOLIC ACID TABLET (FP) PO SCH (09:37)
[2018-07-05] MEDS ORDERED: PT OWN MED DRAWER 7, Y5N ONE ×2 (18:18→22:24)
[2018-07-05] MEDS: THIAMINE HCL 100 MG TABLET (FP) PO SCH (22:33)
[2018-07-06 06:36] VITALS: BP 126/92; PULSE 71; TEMP 98
[2018-07-06] MEDS: ABACAVIR/DOLUTEGRAVIR/LAMIVUDI (TRIUMEQ) TABLET -NF PO SCH (07:01)
== END 2018-07-06 08:31 | disposition left against medical advice (07) | DRG 770 ==
LOC: YASAS 11:54 → Y3W 16:37
PROVIDERS: ADMIT Psychiatry & Neurology Psychiatry; ATTEND Psychiatry & Neurology Psychiatry
PROC: HZ42ZZZ Group Counseling for Substance Abuse Treatment, Cognitive-Behavioral (ICD-10-PCS; principal; 2018-07-03)
DX: F10.20 Alcohol dependence, uncomplicated (principal); F14.20 Cocaine dependence, uncomplicated; Z21 Asymptomatic human immunodeficiency virus [HIV] infection status; B18.2 Chronic viral hepatitis C; Z87.891 Personal history of nicotine dependence
CPT/HCPCS: 36415; 80053; 81003; 81015; 85027; 86593; 93005; 93010

== ENCOUNTER 2019-02-15 10:33 | Inpatient (IN) | payer OTHER ==
[2019-02-15 12:01] VITALS: BMI 21.2
--- NOTE | 2019-02-15 14:37 | HP ---
CIWA Score Nausea/Vomitin-No Nausea/No Vomiting Muscle Tremors: 3 Anxiety: 2 Agitation: 0-Normal Activity Paroxysmal Sweats: 3 Orientation: 2-Disoriented Date<2 days Tacttile Disturbances: 0-None Auditory Disturbances: 0-None Visual Disturbances: 0-None Headache: 2-Mild CIWA-Ar Total Score: 12 - Admission Criteria [facility] Guidelines: Admission for Medically Managed Detox: Requires at least one of the followin. CIWA greater than 12 2. Seizures within the past 24 hours 3. Delirium tremens within the past 24 hours 4. Hallucinations within the past 24 hours 5. Acute intervention needed for co occurring medical disorder 6. Acute intervention needed for co occurring psychiatric disorder 7. Severe withdrawal that cannot be handled at a lower level of care (continued vomiting, continued diarrhea, abnormal vital signs) requiring intravenous medication and/or fluids 8. Admission ROS [facility] Chief Complaint: ETOH WITHDRAWAL SX. Allergies/Adverse Reactions: Allergies Allergy/AdvReac Type Severity Reaction Status Date / Time No Known Allergies Allergy Verified 02/15/19 14:21 History of Present Illness: PATIENT IS KNOWN TO [facility] DUE TO MULTIPLE ADMISSIONS, LAST ADMISSION 07/2018. PATIENT STARTED DRINKING AT 19M DRINKS 3 PINTS DAILY, LAST DRINK THIS MORNING. LONGEST PERIOD OF SOBRIETY 14 YEARS. PATIENT ALSO SMOKES MARIJUANA DAILY SINCE AGE 23. LAST TIME HE SMOKED WAS 02/13/19. + SNIFFING COCAINE SINCE AGE 23. AMOUNT VARIES. TRENT 0.022. DENIES HX OF SEIZURES, BLACKOUTS, FALLS. + BINGE DRINKING. 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 PMH INCLUDES HIV+/HEP C (UNTREATED). DENIES DEPRESSION, ANXIETY. PATIENT DENIES SI/HI AND SUICIDE ATTEMPTS. UD +THC, YVES, BZO. PATIENT SAYS BZO MAY HAVE BEEN ADDED TO COCAINE. DENIES RECENT HOSPITALIZATION. Exam Limitations: No Limitations - Ebola screening Have you traveled outside of the country in the last 21 days: No Have you had contact with anyone from an Ebola affected area: No Have you been sick,other than usual withdrawal symptoms: No Do you have a fever: No - Review of Systems Constitutional: Chills, Night Sweats EENT: reports: No Symptoms Reported Respiratory: reports: No Symptoms reported Cardiac: reports: No Symptoms Reported GI: reports: Poor Fluid Intake : reports: No Symptoms Reported Musculoskeletal: reports: Back Pain, Muscle Pain Integumentary: reports: Sweating Neuro: reports: Headache, Tremors Endocrine: reports: No Symptoms Reported Hematology: reports: No Symptoms Reported Psychiatric: reports: No Sypmtoms Reported, other (FORGETFUL WITH DATE) Patient History - Patient Medical History Hx Anemia: No Hx Asthma: No Hx Chronic Obstructive Pulmonary Disease (COPD): No Hx Cancer: No Hx Cardiac Disorders: No Hx Congestive Heart Failure: No Hx Hypertension: No Hx Hypercholesterolemia: No Hx Pacemaker: No HX Cerebrovascular Accident: No Hx Seizures: No Hx Diabetes: No Hx Gastrointestinal Disorders: No Hx Liver Disease: No Hx Genitourinary Disorders: No Hx Sexually Transmitted Disorders: No Hx Renal Disease (ESRD): No Hx Thyroid Disease: No Hx Human Immunodeficiency Virus (HIV): Yes (on triumeq, COMPLIANT ON MEDS) Hx Hepatitis C: Yes (awaiting treatment) Hx Depression: No Hx Suicide Attempt: No (PATIENT DENIES CURRENT SI / HI.) Hx Bipolar Disorder: No Hx Schizophrenia: No - Patient Surgical History Past Surgical History: No Hx Neurologic Surgery: No Hx Cataract Extraction: No Hx Cardiac Surgery: No Hx Lung Surgery: No Hx Breast Surgery: No Hx Breast Biopsy: No Hx Abdominal Surgery: No Hx Appendectomy: No Hx Cholecystectomy: No Hx Genitourinary Surgery: No Hx Orthopedic Surgery: Yes (Rt ankle ORIF with screws in place (2015).) Other Surgical History: DENIES. Anesthesia Reaction: No - PPD History Previous Implant?: No Documented Results: Positive w/o proof Results: Cxray(-)06/18/18 PPD to be Administered?: No - Reproductive History Patient : No - Smoking Cessation Smoking history: Former smoker Have you smoked in the past 12 months: No Aproximately how many cigarettes per day: 0 If you are a former smoker, when did you quit?: 2010 Cigars Per Day: 0 Hx Chewing Tobacco Use: No Initiated information on smoking cessation: No - Substances Abused Alcohol Route: Oral Frequency: Daily Amount used: 3 pts. vodka Age of first use: 19 Date of Last Use: 02/15/19 Cocaine Route: Inhalation Frequency: 1-3 times last 30 days Amount used: 3 grams Age of first use: 32 Date of Last Use: 02/13/19 Marijuana/Hashish Route: Smoking Frequency: Daily Amount used: 1/2 gram Age of first use: 23 Date of Last Use: 02/15/19 Family Disease History - Family Disease History Family Disease History: Other: Father (), Mother () Admission Physical Exam [facility] - Vital Signs Vital Signs: Vital Signs - 24 hr 02/15/19 11:58 Temperature 97.8 F Pulse Rate 81 Respiratory 20 Rate Blood Pressure 153/94 - Physical General Appearance: Yes: Appropriately Dressed, Thin, Tremorous, Sweating HEENTM: Yes: EOMI, Hearing grossly Normal, Normocephalic, Normal Voice, MARILUZ, Pharynx Normal, Tm's normal Respiratory: Yes: Chest Non-Tender, Lungs Clear, Normal Breath Sounds, No Respiratory Distress, No Accessory Muscle Use Neck: Yes: No masses,lesions,Nodules, Supple, Trachea in good position Breast: Yes: Breast Exam Deferred Cardiology: Yes: Regular Rhythm, Regular Rate, S1, S2 Abdominal: Yes: Normal Bowel Sounds, Non Tender, Soft Genitourinary: Yes: Within Normal Limits Back: Yes: Normal Inspection, Muscle Spasm Musculoskeletal: Yes: full range of Motion, Back pain, Muscle Pain Extremities: Yes: Normal Range of Motion, Non-Tender, Tremors 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: Yes: nurse consultant II-XII NML intact, Fully Oriented, Alert, Motor Strength 5/5, Normal Mood/Affect, Normal Response Integumentary: Yes: Normal Color, Warm, Moist Lymphatic: Yes: Within Normal Limits - Diagnostic (1) Alcohol dependence with uncomplicated withdrawal Current Visit: Yes Status: Acute (2) Cocaine abuse Current Visit: Yes Status: Chronic (3) Cannabis dependence Current Visit: Yes Status: Chronic (4) HIV (human immunodeficiency virus infection) Current Visit: Yes Status: Chronic Qualifiers: HIV symptom status: unspecified Qualified Code(s): B20 - Human immunodeficiency virus [HIV] disease (5) Hepatitis C Current Visit: Yes Status: Chronic Qualifiers: Viral hepatitis chronicity: chronic Hepatic coma status: without hepatic coma Qualified Code(s): B18.2 - Chronic viral hepatitis C Cleared for Admission [facility] - Detox or Rehab [facility] Level of Care: Medically Managed Detox Regimen/Protocol: Librium [facility] Breath Alcohol Content Breath Alcohol Content: 0.022 Urine Drug Screen - Results Drug Screen Negative: No Urine Drug Screen Results: THC-Marijuana, YVES-Cocaine, BZO-Benzodiazepines Inpatient Rehab Admission - Rehab Decision to Admit Inpatient rehab admission?: No
[2019-02-15] MEDS ORDERED: hydrOXYzine PAMOATE 25 MG CAPSULE (FP) PO PRN (14:51)
[2019-02-15] MEDS ORDERED: ACETAMINOPHEN 325 MG TABLET (FP) PO PRN (14:51)
[2019-02-15] MEDS ORDERED: MAG HYDROX/AL HYDROX/SIMETH 30 ML UNIT-DOSE CUP PO PRN (14:51)
[2019-02-15] MEDS ORDERED: MENTHOL/PHENOL 1 EACH UD MM PRN (14:51)
[2019-02-15] MEDS ORDERED: DICYCLOMINE HCL 10 MG CAPSULE PO PRN (14:51)
[2019-02-15] MEDS ORDERED: MAGNESIUM HYDROX 2400MG/30ML ORAL SUSPENSION 30 ML CUP PO PRN (14:51)
[2019-02-15] MEDS ORDERED: MELATONIN 5 MG TABLETS PO PRN (14:51)
[2019-02-15] MEDS ORDERED: MAGNESIUM CITRATE 300 ML BOTTLE PO PRN (14:51)
[2019-02-15] MEDS ORDERED: IBUPROFEN 400 MG TABLET (FP) PO PRN (14:51)
[2019-02-15] MEDS ORDERED: BISMUTH SUBSALICYLATE 524 MG/30 ML UD PO PRN (14:51)
[2019-02-15] MEDS ORDERED: chlordiazePOXIDE HCL 25 MG CAPSULE PO PRN (14:52)
[2019-02-15] MEDS: chlordiazePOXIDE HCL 25 MG CAPSULE PO SCH ×2 (17:34→22:30)
[2019-02-15] MEDS: THIAMINE HCL 100 MG TABLET (FP) PO SCH (22:30)
[2019-02-16 01:38] LABS: URINE APPEARANCE CLEAR; URINE BILIRUBIN NEGATIVE (<2.0 mg/dL); URINE COLOR YELLOW; URINE GLUCOSE (UA) NEGATIVE (NEGATIVE); URINE KETONE NEGATIVE (NEGATIVE); URINE LEUK ESTERASE NEGATIVE (NEGATIVE); URINE NITRITE NEGATIVE (NEGATIVE); URINE PROTEIN NEGATIVE (NEGATIVE)
[2019-02-16] MEDS: chlordiazePOXIDE HCL 25 MG CAPSULE PO SCH ×4 (05:10→22:58)
[2019-02-16] MEDS: ABACAVIR/DOLUTEGRAVIR/LAMIVUDI (TRIUMEQ) TABLET -NF PO SCH (07:12)
[2019-02-16 09:24] LABS: HEMATOCRIT 38.4 % (35.4-49); MCHC 33.8 g/dl (32.0-35.9); MEAN CELL VOLUME 85.8 fl (80-96); MEAN PLT VOLUME 8.9 fl (7.5-11.1); PLATELET COUNT 287 K/MM3 (134-434); RBC 4.47 M/mm3 (4.00-5.60); RDW 18.6 % (11.9-15.9); WHITE BLOOD COUNT 4.9 K/mm3 (4.0-10.0)
[2019-02-16] MEDS: PRENATAL VITAMINS W/ FOLIC ACID TABLET (FP) PO SCH (10:19)
[2019-02-16 10:41] LABS: ALBUMIN 3.2 g/dl (3.4-5.0); ALK PHOS 117 U/L (45-117); ANION GAP 7 MMOL/L (8-16); BILIRUBIN,TOTAL 1.5 mg/dL (0.2-1); BLOOD UREA NITROGEN 10 mg/dL (7-18); CALCIUM 8.5 mg/dL (8.5-10.1); CHLORIDE 106 mmol/L (98-107); CO2 26 mmol/L (21-32); CREATININE 0.9 mg/dL (0.55-1.3); GLUCOSE,RANDOM 89 mg/dL (74-106); POTASSIUM 3.9 mmol/L (3.5-5.1); SGOT/AST 89 U/L (15-37); SGPT/ALT 81 U/L (13-61); SODIUM 139 mmol/L (136-145); TOT PROT 7.5 g/dl (6.4-8.2)
[2019-02-16] MEDS ORDERED: FLU VACCINE QUAD 60 MCG/0.5 ML (MDV 18-19) IM ONE (12:00)
[2019-02-16] MEDS ORDERED: PNEUMOC 13-VAL CONJ-DIP CRM/PF 0.5 ML DISP.SYRIN IM ONE (12:00)
--- NOTE | 2019-02-16 15:06 | PN ---
[facility] CIWA - CIWA Score Nausea/Vomitin-No Nausea/No Vomiting Muscle Tremors: 2 Anxiety: 2 Agitation: 2 Paroxysmal Sweats: 1-Minimal Palms Moist Orientation: 3-Disoriented Date>2 days Tacttile Disturbances: 0-None Auditory Disturbances: 0-None Visual Disturbances: 0-None Headache: 0-None Present CIWA-Ar Total Score: 10 [facility] Progress Note (SOAP) Subjective: reporting feeling tire trouble sleep at night patient has positive outlook to this detox Objective: 02/16/19 15:05 Vital Signs Temperature 96.4 F L 02/16/19 13:44 Pulse Rate 86 02/16/19 13:44 Respiratory Rate 20 02/16/19 13:44 Blood Pressure 132/86 02/16/19 13:44 O2 Sat by Pulse Oximetry (%) Laboratory Last Values WBC 4.9 K/mm3 (4.0-10.0) 02/16/19 06:00 RBC 4.47 M/mm3 (4.00-5.60) 02/16/19 06:00 Hgb 13.0 GM/dL (11.7-16.9) 02/16/19 06:00 Hct 38.4 % (35.4-49) 02/16/19 06:00 MCV 85.8 fl (80-96) 02/16/19 06:00 MCH 29.0 pg (25.7-33.7) 02/16/19 06:00 MCHC 33.8 g/dl (32.0-35.9) 02/16/19 06:00 RDW 18.6 % (11.9-15.9) H 02/16/19 06:00 Plt Count 287 K/MM3 (134-434) 02/16/19 06:00 MPV 8.9 fl (7.5-11.1) 02/16/19 06:00 Sodium 139 mmol/L (136-145) 02/16/19 06:00 Potassium 3.9 mmol/L (3.5-5.1) 02/16/19 06:00 Chloride 106 mmol/L (98-107) 02/16/19 06:00 Carbon Dioxide 26 mmol/L (21-32) 02/16/19 06:00 Anion Gap 7 MMOL/L (8-16) L 02/16/19 06:00 BUN 10 mg/dL (7-18) 02/16/19 06:00 Creatinine 0.9 mg/dL (0.55-1.3) 02/16/19 06:00 Creat Clearance w eGFR 87.29 (>60) 02/16/19 06:00 Random Glucose 89 mg/dL (74-106) 02/16/19 06:00 Calcium 8.5 mg/dL (8.5-10.1) 02/16/19 06:00 Total Bilirubin 1.5 mg/dL (0.2-1) H 02/16/19 06:00 AST 89 U/L (15-37) H 02/16/19 06:00 ALT 81 U/L (13-61) H 02/16/19 06:00 Alkaline Phosphatase 117 U/L (45-117) 02/16/19 06:00 Total Protein 7.5 g/dl (6.4-8.2) 02/16/19 06:00 Albumin 3.2 g/dl (3.4-5.0) L 02/16/19 06:00 Urine Color Yellow 02/15/19 23:10 Urine Appearance Clear 02/15/19 23:10 Urine pH 6.0 (5.0-8.0) 02/15/19 23:10 Ur Specific [place] 1.021 (1.010-1.035) 02/15/19 23:10 Urine Protein Negative (NEGATIVE) 02/15/19 23:10 Urine Glucose (UA) Negative (NEGATIVE) 02/15/19 23:10 Urine Ketones Negative (NEGATIVE) 02/15/19 23:10 Urine Blood Negative (NEGATIVE) 02/15/19 23:10 Urine Nitrite Negative (NEGATIVE) 02/15/19 23:10 Urine Bilirubin Negative (<2.0 mg/dL) 02/15/19 23:10 Urine Urobilinogen 2.0 mg/dL (0.2-1.0) 02/15/19 23:10 Ur Leukocyte Esterase Negative (NEGATIVE) 02/15/19 23:10 RPR Titer Nonreactive (NONREACTIVE) 02/16/19 06:00 lab noted Assessment: 02/16/19 15:06 withdrawal sx Plan: continue detox
[2019-02-16] MEDS: THIAMINE HCL 100 MG TABLET (FP) PO SCH (22:58)
[2019-02-17] MEDS: chlordiazePOXIDE HCL 25 MG CAPSULE PO SCH ×2 (06:38→11:23)
[2019-02-17] MEDS: ABACAVIR/DOLUTEGRAVIR/LAMIVUDI (TRIUMEQ) TABLET -NF PO SCH (11:14)
[2019-02-17] MEDS: PRENATAL VITAMINS W/ FOLIC ACID TABLET (FP) PO SCH (11:14)
--- NOTE | 2019-02-17 13:33 | PN ---
S CIWA - CIWA Score Nausea/Vomitin-No Nausea/No Vomiting Muscle Tremors: 1-None Visible, but [place] Anxiety: 1-Mildly Anxious Agitation: 1-Slight > Activity Paroxysmal Sweats: 1-Minimal Palms Moist Orientation: 0-Oriented Tacttile Disturbances: 0-None Auditory Disturbances: 0-None Visual Disturbances: 0-None Headache: 1-Very Mild CIWA-Ar Total Score: 5 BHS Progress Note (SOAP) Subjective: feeling better patient is ready to return to work at [employer] around 9 am patient requesting to leave the detox pit recorder on 02/18/19 in order to [facility] am patient is alert, no acute disttress, reporting feeling much better and has confidence go back to work and back home to his mild tremor little sweating Objective: 02/17/19 13:39 Vital Signs Temperature 96.0 F L 02/17/19 10:30 Pulse Rate 86 02/17/19 10:30 Respiratory Rate 18 02/17/19 10:30 Blood Pressure 107/76 02/17/19 10:30 O2 Sat by Pulse Oximetry (%) Laboratory Last Values WBC 4.9 K/mm3 (4.0-10.0) 02/16/19 06:00 RBC 4.47 M/mm3 (4.00-5.60) 02/16/19 06:00 Hgb 13.0 GM/dL (11.7-16.9) 02/16/19 06:00 Hct 38.4 % (35.4-49) 02/16/19 06:00 MCV 85.8 fl (80-96) 02/16/19 06:00 MCH 29.0 pg (25.7-33.7) 02/16/19 06:00 MCHC 33.8 g/dl (32.0-35.9) 02/16/19 06:00 RDW 18.6 % (11.9-15.9) H 02/16/19 06:00 Plt Count 287 K/MM3 (134-434) 02/16/19 06:00 MPV 8.9 fl (7.5-11.1) 02/16/19 06:00 Sodium 139 mmol/L (136-145) 02/16/19 06:00 Potassium 3.9 mmol/L (3.5-5.1) 02/16/19 06:00 Chloride 106 mmol/L (98-107) 02/16/19 06:00 Carbon Dioxide 26 mmol/L (21-32) 02/16/19 06:00 Anion Gap 7 MMOL/L (8-16) L 02/16/19 06:00 BUN 10 mg/dL (7-18) 02/16/19 06:00 Creatinine 0.9 mg/dL (0.55-1.3) 02/16/19 06:00 Creat Clearance w eGFR 87.29 (>60) 02/16/19 06:00 Random Glucose 89 mg/dL (74-106) 02/16/19 06:00 Calcium 8.5 mg/dL (8.5-10.1) 02/16/19 06:00 Total Bilirubin 1.5 mg/dL (0.2-1) H 02/16/19 06:00 AST 89 U/L (15-37) H 02/16/19 06:00 ALT 81 U/L (13-61) H 02/16/19 06:00 Alkaline Phosphatase 117 U/L (45-117) 02/16/19 06:00 Total Protein 7.5 g/dl (6.4-8.2) 02/16/19 06:00 Albumin 3.2 g/dl (3.4-5.0) L 02/16/19 06:00 Urine Color Yellow 02/15/19 23:10 Urine Appearance Clear 02/15/19 23:10 Urine pH 6.0 (5.0-8.0) 02/15/19 23:10 Ur Specific [place] 1.021 (1.010-1.035) 02/15/19 23:10 Urine Protein Negative (NEGATIVE) 02/15/19 23:10 Urine Glucose (UA) Negative (NEGATIVE) 02/15/19 23:10 Urine Ketones Negative (NEGATIVE) 02/15/19 23:10 Urine Blood Negative (NEGATIVE) 02/15/19 23:10 Urine Nitrite Negative (NEGATIVE) 02/15/19 23:10 Urine Bilirubin Negative (<2.0 mg/dL) 02/15/19 23:10 Urine Urobilinogen 2.0 mg/dL (0.2-1.0) 02/15/19 23:10 Ur Leukocyte Esterase Negative (NEGATIVE) 02/15/19 23:10 RPR Titer Nonreactive (NONREACTIVE) 02/16/19 06:00 lab noted Assessment: 02/17/19 13:40 mild withdrawal sx Plan: continue detox
[2019-02-17] MEDS ORDERED: chlordiazePOXIDE HCL 10 MG CAPSULE PO PRN (17:00)
[2019-02-17] MEDS: chlordiazePOXIDE HCL 10 MG CAPSULE PO SCH ×2 (18:15→23:51)
[2019-02-17 21:10] VITALS: BP 118/75; PULSE 81; TEMP 97.8
[2019-02-17] MEDS: THIAMINE HCL 100 MG TABLET (FP) PO SCH (23:51)
--- NOTE | 2019-02-18 01:05 | PN ---
[facility] Progress Note Note: I was informed by the nurse that patient is leaving. Patient was seen at bedside. He reports that he spoke to Ms. Melania So [employer] that he will be leaving at 2.00AM today to drive to work at [employer] and she told him that he can leave at that time. Risks and consequences of leaving at this time reinforced. Patient is medically stable and vital signs stable. Vital Signs Temperature 97.8 F 02/17/19 21:10 Pulse Rate 81 02/17/19 21:10 Respiratory Rate 16 02/17/19 21:10 Blood Pressure 118/75 02/17/19 21:10 O2 Sat by Pulse Oximetry (%) Laboratory Last Values WBC 4.9 K/mm3 (4.0-10.0) 02/16/19 06:00 RBC 4.47 M/mm3 (4.00-5.60) 02/16/19 06:00 Hgb 13.0 GM/dL (11.7-16.9) 02/16/19 06:00 Hct 38.4 % (35.4-49) 02/16/19 06:00 MCV 85.8 fl (80-96) 02/16/19 06:00 MCH 29.0 pg (25.7-33.7) 02/16/19 06:00 MCHC 33.8 g/dl (32.0-35.9) 02/16/19 06:00 RDW 18.6 % (11.9-15.9) H 02/16/19 06:00 Plt Count 287 K/MM3 (134-434) 02/16/19 06:00 MPV 8.9 fl (7.5-11.1) 02/16/19 06:00 Sodium 139 mmol/L (136-145) 02/16/19 06:00 Potassium 3.9 mmol/L (3.5-5.1) 02/16/19 06:00 Chloride 106 mmol/L (98-107) 02/16/19 06:00 Carbon Dioxide 26 mmol/L (21-32) 02/16/19 06:00 Anion Gap 7 MMOL/L (8-16) L 02/16/19 06:00 BUN 10 mg/dL (7-18) 02/16/19 06:00 Creatinine 0.9 mg/dL (0.55-1.3) 02/16/19 06:00 Creat Clearance w eGFR 87.29 (>60) 02/16/19 06:00 Random Glucose 89 mg/dL (74-106) 02/16/19 06:00 Calcium 8.5 mg/dL (8.5-10.1) 02/16/19 06:00 Total Bilirubin 1.5 mg/dL (0.2-1) H 02/16/19 06:00 AST 89 U/L (15-37) H 02/16/19 06:00 ALT 81 U/L (13-61) H 02/16/19 06:00 Alkaline Phosphatase 117 U/L (45-117) 02/16/19 06:00 Total Protein 7.5 g/dl (6.4-8.2) 02/16/19 06:00 Albumin 3.2 g/dl (3.4-5.0) L 02/16/19 06:00 Urine Color Yellow 02/15/19 23:10 Urine Appearance Clear 02/15/19 23:10 Urine pH 6.0 (5.0-8.0) 02/15/19 23:10 Ur Specific [place] 1.021 (1.010-1.035) 02/15/19 23:10 Urine Protein Negative (NEGATIVE) 02/15/19 23:10 Urine Glucose (UA) Negative (NEGATIVE) 02/15/19 23:10 Urine Ketones Negative (NEGATIVE) 02/15/19 23:10 Urine Blood Negative (NEGATIVE) 02/15/19 23:10 Urine Nitrite Negative (NEGATIVE) 02/15/19 23:10 Urine Bilirubin Negative (<2.0 mg/dL) 02/15/19 23:10 Urine Urobilinogen 2.0 mg/dL (0.2-1.0) 02/15/19 23:10 Ur Leukocyte Esterase Negative (NEGATIVE) 02/15/19 23:10 RPR Titer Nonreactive (NONREACTIVE) 02/16/19 06:00
[2019-02-18] MEDS ORDERED: chlordiazePOXIDE HCL 10 MG CAPSULE PO SCH (17:00)
== END 2019-02-18 01:05 | disposition home or self-care (01) | DRG 774 ==
LOC: YASAS 10:33 → Y3N 15:16
PROVIDERS: ADMIT Surgery; ATTEND Surgery
PROC: HZ2ZZZZ Detoxification Services for Substance Abuse Treatment (ICD-10-PCS; principal; 2019-02-15)
DX: F10.230 Alcohol dependence with withdrawal, uncomplicated (principal); F14.20 Cocaine dependence, uncomplicated; F12.20 Cannabis dependence, uncomplicated; Z21 Asymptomatic human immunodeficiency virus [HIV] infection status; B18.2 Chronic viral hepatitis C
CPT/HCPCS: 36415; 80053; 81003; 85027; 86593; 90670; 90688; G0008; G0009

== ENCOUNTER 2019-07-13 12:17 | Inpatient (IN) | payer OTHER ==
[2019-07-13 13:23] VITALS: BMI 21.9
--- NOTE | 2019-07-13 15:32 | HP ---
CIWA Score Nausea/Vomitin-No Nausea/No Vomiting Muscle Tremors: 4-Moderate,w/Arms Extend Anxiety: 4-Mod. Anxious/Guarded Agitation: 4-Moderately Restless Paroxysmal Sweats: 3 Orientation: 0-Oriented Tacttile Disturbances: 0-None Auditory Disturbances: 0-None Visual Disturbances: 0-None Headache: 0-None Present CIWA-Ar Total Score: 15 - Admission Criteria OASAS Guidelines: Admission for Medically Managed Detox: Requires at least one of the followin. CIWA greater than 12 2. Seizures within the past 24 hours 3. Delirium tremens within the past 24 hours 4. Hallucinations within the past 24 hours 5. Acute intervention needed for co occurring medical disorder 6. Acute intervention needed for co occurring psychiatric disorder 7. Severe withdrawal that cannot be handled at a lower level of care (continued vomiting, continued diarrhea, abnormal vital signs) requiring intravenous medication and/or fluids 8. Admission ROS [facility] Chief Complaint: I was my birthday and its when i relapsed. I was clean for about 2yrs. I know i need to be here. Allergies/Adverse Reactions: Allergies Allergy/AdvReac Type Severity Reaction Status Date / Time No Known Allergies Allergy Verified 07/13/19 13:11 History of Present Illness: pt is a 59yrold male with a history of alcohol, cocaine and cannabis dependence seeking detox for treatment. pt has a h/o HIV and is being seen by his PCP. currently pt is not taking any HIV medication because his doctor will be putting him on a different medication to continue his stability and management of his hiv status. Exam Limitations: No Limitations - Ebola screening Have you traveled outside of the country in the last 21 days: No Have you had contact with anyone from an Ebola affected area: No Have you been sick,other than usual withdrawal symptoms: No Do you have a fever: No - Review of Systems Constitutional: Chills, Diaphoresis, Loss of Appetite, Changes in sleep, Unintentional Wgt. Loss EENT: reports: No Symptoms Reported Respiratory: reports: No Symptoms reported Cardiac: reports: Syncope GI: reports: Diarrhea, Poor Appetite, Poor Fluid Intake, Indigestion : reports: No Symptoms Reported Musculoskeletal: reports: Back Pain Integumentary: reports: Flushing, Sweating Neuro: reports: Headache, Tingling, Tremors Endocrine: reports: Excessive Sweating, Flushing Hematology: reports: No Symptoms Reported, Anemia Psychiatric: reports: Judgement Intact, Mood/Affect Appropiate, Orientated x3, Agitated, Anxious Other Systems: Reviewed and Negative Patient History - Patient Medical History Hx Anemia: No Hx Asthma: No Hx Chronic Obstructive Pulmonary Disease (COPD): No Hx Cancer: No Hx Cardiac Disorders: No Hx Congestive Heart Failure: No Hx Hypertension: No Hx Hypercholesterolemia: No Hx Pacemaker: No HX Cerebrovascular Accident: No Hx Seizures: No Hx Diabetes: No Hx Gastrointestinal Disorders: No Hx Liver Disease: No Hx Genitourinary Disorders: No Hx Sexually Transmitted Disorders: No Hx Renal Disease (ESRD): No Hx Thyroid Disease: No Hx Human Immunodeficiency Virus (HIV): Yes (was dx 1994. was on meds his md held it for now. not taking any medication) Hx Hepatitis C: Yes Hx Depression: No Hx Suicide Attempt: No (PATIENT DENIES CURRENT SI / HI.) Hx Bipolar Disorder: No Hx Schizophrenia: No - Patient Surgical History Past Surgical History: No Hx Neurologic Surgery: No Hx Cataract Extraction: No Hx Cardiac Surgery: No Hx Lung Surgery: No Hx Breast Surgery: No Hx Breast Biopsy: No Hx Abdominal Surgery: No Hx Appendectomy: No Hx Cholecystectomy: No Hx Genitourinary Surgery: No Hx Section: No Hx Orthopedic Surgery: Yes (Rt ankle ORIF with screws in place (2015).) Other Surgical History: DENIES. Anesthesia Reaction: No - PPD History Previous Implant?: Yes Documented Results: Positive w/proof Implanted On Prior R Admission?: No PPD to be Administered?: Yes - Reproductive History Patient is a Female of Child Bearing Age (11 -55 yrs old): No - Smoking Cessation Smoking history: Former smoker Have you smoked in the past 12 months: No Aproximately how many cigarettes per day: 0 If you are a former smoker, when did you quit?: 2010 Cigars Per Day: 0 Hx Chewing Tobacco Use: No Initiated information on smoking cessation: Yes 'Breaking Loose' booklet given: 07/13/19 - Substance & Tx. History Hx Alcohol Use: Yes Hx Substance Use: Yes Substance Use Type: Alcohol, Cocaine, Marijuana, Tranquilizers Hx Substance Use Treatment: No (last detox elevate 04/21/2019) - Substances abused K2/Spice Substance route: Oral Frequency: Daily Amount used: 1.5 gram Age of first use: 50 Date of last use: 07/12/19 Marijuana/Hashish Substance route: Smoking Frequency: 3-6 times per week Amount used: 1 gm/week Age of first use: 28 Date of last use: 07/12/19 Benzodiazepine (Klonopin) Other (specify): Percocet Substance route: Oral Frequency: 1-2 times per week Amount used: 6 10 mg pills Age of first use: 57 Date of last use: 07/12/19 Alcohol Substance route: Oral Frequency: Daily Amount used: 13 (12 oz) beers per day Age of first use: 19 Date of last use: 07/13/19 Family Disease History - Family Disease History Family Disease History: Other: Father (), Mother () Admission Physical Exam S - Vital Signs Vital Signs: Vital Signs - 24 hr 07/13/19 13:10 Temperature 97.9 F Pulse Rate 83 Respiratory 17 Rate Blood Pressure 131/93 - Physical General Appearance: Yes: Within Normal Limits, Appropriately Dressed, Moderate Distress, Thin, Tremorous, Irritable, Sweating, Anxious HEENTM: Yes: Normal Voice, Nasal Congestion, Thrush Respiratory: Yes: Lungs Clear, Normal Breath Sounds, No Respiratory Distress Neck: Yes: No masses,lesions,Nodules Breast: Yes: Within Normal Limits Cardiology: Yes: Regular Rhythm, Regular Rate, S1, S2 Abdominal: Yes: Normal Bowel Sounds, Non Tender, Soft Genitourinary: Yes: Within Normal Limits Back: Yes: Normal Inspection Musculoskeletal: Yes: full range of Motion, Back pain Extremities: Yes: Normal Capillary Refill, Normal Inspection, Non-Tender, Tremors 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: Yes: Fully Oriented, Alert, Normal Response Integumentary: Yes: Normal Color Lymphatic: Yes: Within Normal Limits - Diagnostic (1) Alcohol dependence with uncomplicated withdrawal Current Visit: Yes Status: Chronic (2) Second degree burn Current Visit: No Status: Chronic (3) Alcohol dependence Current Visit: No Status: Chronic (4) Cannabis dependence Current Visit: Yes Status: Chronic (5) Cocaine dependence, uncomplicated Current Visit: No Status: Chronic (6) HIV (human immunodeficiency virus infection) Current Visit: Yes Status: Chronic Qualifiers: HIV symptom status: unspecified Qualified Code(s): B20 - Human immunodeficiency virus [HIV] disease (7) Hepatitis C Current Visit: Yes Status: Chronic Qualifiers: Viral hepatitis chronicity: chronic Hepatic coma status: without hepatic coma Qualified Code(s): B18.2 - Chronic viral hepatitis C Cleared for Admission [facility] - Detox or Rehab [facility] Level of Care: Medically Managed Detox Regimen/Protocol: Librium Inpatient Rehab Admission - Rehab Decision to Admit Inpatient rehab admission?: No
[2019-07-13] MEDS ORDERED: chlordiazePOXIDE HCL 25 MG CAPSULE PO PRN (15:47)
[2019-07-13] MEDS ORDERED: ACETAMINOPHEN 325 MG TABLET (FP) PO PRN ×2 (15:47)
[2019-07-13] MEDS ORDERED: MAG HYDROX/AL HYDROX/SIMETH 30 ML UNIT-DOSE CUP PO PRN (15:47)
[2019-07-13] MEDS ORDERED: DICYCLOMINE HCL 10 MG CAPSULE PO PRN (15:47)
[2019-07-13] MEDS ORDERED: MENTHOL/PHENOL 1 EACH UD MM PRN (15:47)
[2019-07-13] MEDS ORDERED: METHOCARBAMOL 500 MG TABLET PO PRN (15:47)
[2019-07-13] MEDS ORDERED: MAGNESIUM CITRATE 300 ML BOTTLE PO PRN (15:47)
[2019-07-13] MEDS ORDERED: MELATONIN 5 MG TABLETS PO PRN (15:47)
[2019-07-13] MEDS ORDERED: P-EPHED 60MG/TRIPROLIDI 2.5MG TABLET PO PRN (15:47)
[2019-07-13] MEDS ORDERED: BISMUTH SUBSALICYLATE 524 MG/30 ML UD PO PRN (15:47)
[2019-07-13] MEDS ORDERED: MAGNESIUM HYDROX 2400MG/30ML ORAL SUSPENSION 30 ML CUP PO PRN (15:47)
[2019-07-13] MEDS ORDERED: ONDANSETRON *ODT* 4 MG TABLET SL PRN (15:47)
[2019-07-13] MEDS ORDERED: IBUPROFEN 400 MG TABLET (FP) PO PRN ×2 (15:47)
[2019-07-13] MEDS ORDERED: hydrOXYzine PAMOATE 25 MG CAPSULE (FP) PO PRN (15:47)
[2019-07-13] MEDS: chlordiazePOXIDE HCL 25 MG CAPSULE PO SCH ×2 (16:54→22:54)
[2019-07-13] MEDS: THIAMINE HCL 100 MG TABLET (FP) PO SCH (22:54)
[2019-07-14] MEDS: chlordiazePOXIDE HCL 25 MG CAPSULE PO SCH ×4 (06:12→22:24)
[2019-07-14 10:10] LABS: ALBUMIN 3.1 g/dl (3.4-5.0); BILIRUBIN,TOTAL 0.3 mg/dL (0.2-1); BLOOD UREA NITROGEN 8.8 mg/dL (7-18); CALCIUM 8.9 mg/dL (8.5-10.1); CREATININE 0.9 mg/dL (0.55-1.3); POTASSIUM 4.2 mmol/L (3.5-5.1); TOT PROT 7.3 g/dl (6.4-8.2)
[2019-07-14 10:23] LABS: HEMATOCRIT 42.5 % (35.4-49); HEMOGLOBIN 13.9 GM/dL (11.7-16.9); MCHC 32.6 g/dl (32.0-35.9); MEAN CELL VOLUME 85.9 fl (80-96); MEAN PLT VOLUME 8.1 fl (7.5-11.1); PLATELET COUNT 271 K/MM3 (134-434); RBC 4.94 M/mm3 (4.00-5.60); RDW 16.1 % (11.9-15.9); WHITE BLOOD COUNT 5.2 K/mm3 (4.0-10.0)
[2019-07-14] MEDS: PRENATAL VITAMINS W/ FOLIC ACID TABLET (FP) PO SCH (10:43)
--- NOTE | 2019-07-14 14:10 | PN ---
[facility] CIWA - CIWA Score Nausea/Vomitin-No Nausea/No Vomiting Muscle Tremors: 3 Anxiety: 4-Mod. Anxious/Guarded Agitation: 1-Slight > Activity Paroxysmal Sweats: No Perspiration Orientation: 0-Oriented Tacttile Disturbances: 3-Moderate Itch/Numb/Burn Auditory Disturbances: 0-None Visual Disturbances: 1-Very Mild Sensitivity Headache: 0-None Present CIWA-Ar Total Score: 12 BHS Progress Note (SOAP) Subjective: Body Aches, Anxious, Tremors, Interrupted Sleep. Objective: PATIENT A & O X 3, OBSERVED AMBULATING ON UNIT UNASSISTED. IN NO ACUTE DISTRESS. 07/14/19 14:11 Vital Signs Temperature 98.6 F 07/14/19 09:25 Pulse Rate 89 07/14/19 13:39 Respiratory Rate 17 07/14/19 13:39 Blood Pressure 165/69 07/14/19 13:39 O2 Sat by Pulse Oximetry (%) Laboratory Tests 07/14/19 07/14/19 07/14/19 07:00 07:00 07:00 WBC 5.2 RBC 4.94 Hgb 13.9 Hct 42.5 MCV 85.9 MCH 28.0 MCHC 32.6 RDW 16.1 H Plt Count 271 MPV 8.1 Sodium 143 Potassium 4.2 Chloride 108 H Carbon Dioxide 31 Anion Gap 4 L BUN 8.8 Creatinine 0.9 Est GFR (CKD-EPI)AfAm 109.50 Est GFR (CKD-EPI)NonAf 94.48 Random Glucose 82 Calcium 8.9 Total Bilirubin 0.3 AST 61 H ALT 64 H Alkaline Phosphatase 65 Total Protein 7.3 Albumin 3.1 L RPR Titer Nonreactive LABS NOTED. PATIENT HAS HAD ELEVATED AST LEVELS ON PREVIOUS ADMISSIONS. 07/14/19 14:12 Assessment: 07/14/19 14:13 WITHDRAWAL SYMPTOMS. ELEVATED AST LEVEL. ELEVATED BLOOD PRESSURE (INTERMITTENT). 07/14/19 14:15 Plan: CONTINUE DETOX. PRN ROBAXIN PO FOR SEVERE BODY ACHES. INTERMITTENT ELEVATED IN BLOOD PRESSURE NOTED FOR PATIENT DURING DETOX ADMISSION THUS FAR. PATIENT DENIES HISTORY OF HYPERTENSION ON DETOX ADMISSION. WILL CONTINUE TO MONITOR BLOOD PRESSURE.
[2019-07-14] MEDS: THIAMINE HCL 100 MG TABLET (FP) PO SCH (22:24)
[2019-07-15] MEDS: chlordiazePOXIDE HCL 25 MG CAPSULE PO SCH ×4 (06:11→23:05)
[2019-07-15] MEDS: PRENATAL VITAMINS W/ FOLIC ACID TABLET (FP) PO SCH (10:51)
--- NOTE | 2019-07-15 14:13 | PN ---
S CIWA - CIWA Score Nausea/Vomitin-No Nausea/No Vomiting Muscle Tremors: None Anxiety: 4-Mod. Anxious/Guarded Agitation: 3 Paroxysmal Sweats: No Perspiration Orientation: 2-Disoriented Date<2 days Tacttile Disturbances: 2-Mild Itch/Numbness/Burn Auditory Disturbances: 0-None Visual Disturbances: 0-None Headache: 0-None Present CIWA-Ar Total Score: 11 S Progress Note (SOAP) Subjective: Body Aches, Anxious, Interrupted Sleep. Objective: PATIENT A & O X 2 (UNCERTAIN ABOUT CURRENT DAY / DATE). PATIENT OBSERVED AMBULATING ON UNIT UNASSISTED. IN NO ACUTE DISTRESS. 07/15/19 14:12 Vital Signs Temperature 97.1 F L 07/15/19 13:49 Pulse Rate 59 L 07/15/19 13:49 Respiratory Rate 16 07/15/19 13:49 Blood Pressure 152/92 07/15/19 13:49 O2 Sat by Pulse Oximetry (%) Laboratory Tests 07/14/19 07/14/19 07/14/19 07:00 07:00 07:00 WBC 5.2 RBC 4.94 Hgb 13.9 Hct 42.5 MCV 85.9 MCH 28.0 MCHC 32.6 RDW 16.1 H Plt Count 271 MPV 8.1 Sodium 143 Potassium 4.2 Chloride 108 H Carbon Dioxide 31 Anion Gap 4 L BUN 8.8 Creatinine 0.9 Est GFR (CKD-EPI)AfAm 109.50 Est GFR (CKD-EPI)NonAf 94.48 Random Glucose 82 Calcium 8.9 Total Bilirubin 0.3 AST 61 H ALT 64 H Alkaline Phosphatase 65 Total Protein 7.3 Albumin 3.1 L RPR Titer Nonreactive LABS NOTED. Assessment: 07/15/19 14:13 WITHDRAWAL SYMPTOMS. ELEVATED AST LEVEL. ELEVATED ALT LEVEL. Plan: CONTINUE DETOX. PRN ROBAXIN PO FOR BODY ACHES / MUSCLE SPASMS.
--- NOTE | 2019-07-15 17:47 | PN ---
S Progress Note Note: Pt states he had irregular heart beat earlier today. Better now. Wants to have EKG for evaluation.
[2019-07-15] MEDS: THIAMINE HCL 100 MG TABLET (FP) PO SCH (23:05)
[2019-07-16] MEDS: chlordiazePOXIDE HCL 10 MG CAPSULE PO SCH ×4 (07:10→22:01)
[2019-07-16] MEDS: PRENATAL VITAMINS W/ FOLIC ACID TABLET (FP) PO SCH (10:48)
--- NOTE | 2019-07-16 16:34 | PN ---
S CIWA - CIWA Score Nausea/Vomitin-No Nausea/No Vomiting Muscle Tremors: None Anxiety: 4-Mod. Anxious/Guarded Agitation: 3 Paroxysmal Sweats: No Perspiration Orientation: 0-Oriented Tacttile Disturbances: 1-Very Mild Itch/Numbness Auditory Disturbances: 0-None Visual Disturbances: 1-Very Mild Sensitivity Headache: 0-None Present CIWA-Ar Total Score: 9 BHS Progress Note (SOAP) Subjective: Body Aches, Anxious. Objective: PATIENT A & O X 3, OBSERVED AMBULATING ON UNIT UNASSISTED. IN NO ACUTE DISTRESS. 07/16/19 16:34 Vital Signs Temperature 97.6 F 07/16/19 13:35 Pulse Rate 96 H 07/16/19 13:35 Respiratory Rate 16 07/16/19 13:35 Blood Pressure 99/75 07/16/19 13:35 O2 Sat by Pulse Oximetry (%) Laboratory Tests 07/14/19 07/14/19 07/14/19 07:00 07:00 07:00 WBC 5.2 RBC 4.94 Hgb 13.9 Hct 42.5 MCV 85.9 MCH 28.0 MCHC 32.6 RDW 16.1 H Plt Count 271 MPV 8.1 Sodium 143 Potassium 4.2 Chloride 108 H Carbon Dioxide 31 Anion Gap 4 L BUN 8.8 Creatinine 0.9 Est GFR (CKD-EPI)AfAm 109.50 Est GFR (CKD-EPI)NonAf 94.48 Random Glucose 82 Calcium 8.9 Total Bilirubin 0.3 AST 61 H ALT 64 H Alkaline Phosphatase 65 Total Protein 7.3 Albumin 3.1 L RPR Titer Nonreactive LABS NOTED. Assessment: 07/16/19 16:34 WITHDRAWAL SYMPTOMS. ELEVATED ALT LEVEL. ELEVATED ALT LEVEL. Plan: CONTINUE DETOX.
[2019-07-16] MEDS: THIAMINE HCL 100 MG TABLET (FP) PO SCH (22:01)
[2019-07-17] MEDS ORDERED: chlordiazePOXIDE HCL 10 MG CAPSULE PO SCH (05:00)
[2019-07-17] MEDS: PRENATAL VITAMINS W/ FOLIC ACID TABLET (FP) PO SCH (10:26)
--- NOTE | 2019-07-17 16:20 | PN ---
[facility] CIWA - CIWA Score Nausea/Vomitin-No Nausea/No Vomiting Muscle Tremors: None Anxiety: 3 Agitation: 3 Paroxysmal Sweats: No Perspiration Orientation: 0-Oriented Tacttile Disturbances: 1-Very Mild Itch/Numbness Auditory Disturbances: 0-None Visual Disturbances: 0-None Headache: 0-None Present CIWA-Ar Total Score: 7 BHS Progress Note (SOAP) Subjective: Anxious, Restless, Body Aches. Patient Reports That H/A reported over last couple of days has resolved at this time. Objective: PATIENT A & O X 3, OBSERVED AMBULATING ON UNIT UNASSISTED. IN NO ACUTE DISTRESS. 07/17/19 16:19 Vital Signs Temperature 96.7 F L 07/17/19 09:50 Pulse Rate 84 07/17/19 09:50 Respiratory Rate 18 07/17/19 09:50 Blood Pressure 111/78 07/17/19 09:50 O2 Sat by Pulse Oximetry (%) Laboratory Tests 07/14/19 07/14/19 07/14/19 07:00 07:00 07:00 WBC 5.2 RBC 4.94 Hgb 13.9 Hct 42.5 MCV 85.9 MCH 28.0 MCHC 32.6 RDW 16.1 H Plt Count 271 MPV 8.1 Sodium 143 Potassium 4.2 Chloride 108 H Carbon Dioxide 31 Anion Gap 4 L BUN 8.8 Creatinine 0.9 Est GFR (CKD-EPI)AfAm 109.50 Est GFR (CKD-EPI)NonAf 94.48 Random Glucose 82 Calcium 8.9 Total Bilirubin 0.3 AST 61 H ALT 64 H Alkaline Phosphatase 65 Total Protein 7.3 Albumin 3.1 L RPR Titer Nonreactive LABS NOTED. Assessment: 07/17/19 16:20 WITHDRAWAL SYMPTOMS. ELEVATED AST LEVEL. ELEVATED ALT LEVEL. Plan: CONTINUE DETOX. PATIENT SCHEDULED FOR D/C FROM DETOX UNIT TOMORROW.
--- NOTE | 2019-07-17 17:19 | PN ---
[facility] Progress Note Note: patient would like to be discharged today,instead of tomorrow Vital Signs Temperature 96.7 F L 07/17/19 09:50 Pulse Rate 84 07/17/19 09:50 Respiratory Rate 18 07/17/19 09:50 Blood Pressure 111/78 07/17/19 09:50 O2 Sat by Pulse Oximetry (%) follow up with after care program as arrangement
--- NOTE | 2019-07-17 17:33 | DS ---
[facility] Detox Discharge Summary Admission Date: 07/13/19 Discharge Date: 07/17/19 - History Present History: Alcohol Dependence, Cocaine Dependence Additional Comments: patient is stable for dischare today,follow up with after care program as arrangement and his medical provider for medical problem Pertinent Past History: hepatitis c hiv - Physical Exam Results Vital Signs: Vital Signs Temperature 96.7 F L 07/17/19 09:50 Pulse Rate 84 07/17/19 09:50 Respiratory Rate 18 07/17/19 09:50 Blood Pressure 111/78 07/17/19 09:50 O2 Sat by Pulse Oximetry (%) Pertinent Admission Physical Exam Findings: withdrawal signs and symptom Vital Signs Temperature 96.7 F L 07/17/19 09:50 Pulse Rate 84 07/17/19 09:50 Respiratory Rate 18 07/17/19 09:50 Blood Pressure 111/78 07/17/19 09:50 O2 Sat by Pulse Oximetry (%) Laboratory Last Values WBC 5.2 K/mm3 (4.0-10.0) 07/14/19 07:00 RBC 4.94 M/mm3 (4.00-5.60) 07/14/19 07:00 Hgb 13.9 GM/dL (11.7-16.9) 07/14/19 07:00 Hct 42.5 % (35.4-49) 07/14/19 07:00 MCV 85.9 fl (80-96) 07/14/19 07:00 MCH 28.0 pg (25.7-33.7) 07/14/19 07:00 MCHC 32.6 g/dl (32.0-35.9) 07/14/19 07:00 RDW 16.1 % (11.9-15.9) H 07/14/19 07:00 Plt Count 271 K/MM3 (134-434) 07/14/19 07:00 MPV 8.1 fl (7.5-11.1) 07/14/19 07:00 Sodium 143 mmol/L (136-145) 07/14/19 07:00 Potassium 4.2 mmol/L (3.5-5.1) 07/14/19 07:00 Chloride 108 mmol/L (98-107) H 07/14/19 07:00 Carbon Dioxide 31 mmol/L (21-32) 07/14/19 07:00 Anion Gap 4 MMOL/L (8-16) L 07/14/19 07:00 BUN 8.8 mg/dL (7-18) 07/14/19 07:00 Creatinine 0.9 mg/dL (0.55-1.3) 07/14/19 07:00 Est GFR (CKD-EPI)AfAm 109.50 07/14/19 07:00 Est GFR (CKD-EPI)NonAf 94.48 07/14/19 07:00 Random Glucose 82 mg/dL (74-106) 07/14/19 07:00 Calcium 8.9 mg/dL (8.5-10.1) 07/14/19 07:00 Total Bilirubin 0.3 mg/dL (0.2-1) 07/14/19 07:00 AST 61 U/L (15-37) H 07/14/19 07:00 ALT 64 U/L (13-61) H 07/14/19 07:00 Alkaline Phosphatase 65 U/L (45-117) 07/14/19 07:00 Total Protein 7.3 g/dl (6.4-8.2) 07/14/19 07:00 Albumin 3.1 g/dl (3.4-5.0) L 07/14/19 07:00 RPR Titer Nonreactive (NONREACTIVE) 07/14/19 07:00 - Treatment Hospital Course: Detox Protocol Followed, Detoxed Safely, Responded well, Discharged Condition Good - Diagnosis (1) Alcohol dependence with uncomplicated withdrawal Current Visit: Yes Status: Chronic (2) Cannabis dependence Current Visit: Yes Status: Chronic (3) HIV (human immunodeficiency virus infection) Current Visit: Yes Status: Chronic Qualifiers: HIV symptom status: unspecified Qualified Code(s): B20 - Human immunodeficiency virus [HIV] disease (4) Hepatitis C Current Visit: Yes Status: Chronic Qualifiers: Viral hepatitis chronicity: chronic Hepatic coma status: without hepatic coma Qualified Code(s): B18.2 - Chronic viral hepatitis C (5) Cocaine dependence, uncomplicated Current Visit: No Status: Chronic - AMA Did Patient Leave Against Medical Advice: No
[2019-07-17 18:35] VITALS: BP 114/71; PULSE 83; TEMP 97.7
[2019-07-18] MEDS ORDERED: chlordiazePOXIDE HCL 10 MG CAPSULE PO ONE (05:00)
--- NOTE | 2019-07-18 11:50 | EKG ---
Test Reason : Blood Pressure : / mmHG Vent. Rate : 065 BPM Atrial Rate : 065 BPM P-R Int : 122 ms QRS Dur : 082 ms QT Int : 438 ms P-R-T Axes : 057 070 057 degrees QTc Int : 455 ms NORMAL SINUS RHYTHM NORMAL ECG WHEN COMPARED WITH ECG OF 03-JUL-2018 17:31, NO SIGNIFICANT CHANGE WAS FOUND Confirmed by EMMETT GARCIA MD ([id number]) on 07/18/2019 11:50:35 AM Referred By: Confirmed By:EMMETT GARCIA MD
== END 2019-07-17 17:30 | disposition home or self-care (01) | DRG 774 ==
LOC: YASAS 12:17 → Y3N 15:33
PROVIDERS: ADMIT Surgery; ATTEND Surgery
PROC: HZ2ZZZZ Detoxification Services for Substance Abuse Treatment (ICD-10-PCS; principal; 2019-07-13)
DX: F10.230 Alcohol dependence with withdrawal, uncomplicated (principal); F14.20 Cocaine dependence, uncomplicated; F12.20 Cannabis dependence, uncomplicated; Z21 Asymptomatic human immunodeficiency virus [HIV] infection status; B18.2 Chronic viral hepatitis C; R74.0 Nonspecific elevation of levels of transaminase and lactic acid dehydrogenase [LDH]; R03.0 Elevated blood-pressure reading, without diagnosis of hypertension; Z87.891 Personal history of nicotine dependence
CPT/HCPCS: 36415; 71046-TC-FY; 80053; 85027; 86593; 93005; 93010

== ENCOUNTER 2019-11-06 10:08 | Inpatient (IN) | payer OTHER ==
[2019-11-06 10:38] VITALS: BMI 22.6
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
[2019-11-06] MEDS ORDERED: MELATONIN 5 MG TABLETS PO PRN (11:07)
[2019-11-06] MEDS ORDERED: MENTHOL/PHENOL 1 EACH UD MM PRN (11:07)
[2019-11-06] MEDS ORDERED: MAGNESIUM HYDROX 2400MG/30ML ORAL SUSPENSION 30 ML CUP PO PRN (11:07)
[2019-11-06] MEDS ORDERED: MAGNESIUM CITRATE 300 ML BOTTLE PO PRN (11:07)
[2019-11-06] MEDS ORDERED: LORazepam 1 MG TABLET PO PRN (11:07)
[2019-11-06] MEDS ORDERED: METHOCARBAMOL 500 MG TABLET PO PRN (11:07)
[2019-11-06] MEDS ORDERED: BISMUTH SUBSALICYLATE 524 MG/30 ML UD PO PRN (11:07)
[2019-11-06] MEDS ORDERED: MAG HYDROX/AL HYDROX/SIMETH 30 ML UNIT-DOSE CUP PO PRN (11:07)
[2019-11-06] MEDS ORDERED: hydrOXYzine PAMOATE 25 MG CAPSULE (FP) PO PRN (11:07)
[2019-11-06] MEDS ORDERED: ACETAMINOPHEN 325 MG TABLET (FP) PO PRN ×2 (11:07)
[2019-11-06] MEDS ORDERED: IBUPROFEN 400 MG TABLET (FP) PO PRN (11:07)
[2019-11-06] MEDS: LORazepam 2 MG TABLET PO SCH ×2 (18:05→22:55)
[2019-11-06] MEDS: THIAMINE HCL 100 MG TABLET (FP) PO SCH (22:55)
[2019-11-07] MEDS: LORazepam 2 MG TABLET PO SCH ×4 (06:21→22:31)
[2019-11-07 10:06] LABS: HEMATOCRIT 41.6 % (35.4-49); HEMOGLOBIN 13.5 GM/dL (11.7-16.9); MCH 27.3 pg (25.7-33.7); MCHC 32.6 g/dl (32.0-35.9); MEAN CELL VOLUME 83.9 fl (80-96); MEAN PLT VOLUME 8.6 fl (7.5-11.1); PLATELET COUNT 235 K/MM3 (134-434); RBC 4.96 M/mm3 (4.00-5.60); RDW 16.1 % (11.9-15.9); WHITE BLOOD COUNT 4.7 K/mm3 (4.0-10.0)
[2019-11-07] MEDS: PRENATAL VITAMINS W/ FOLIC ACID TABLET (FP) PO SCH (10:10)
[2019-11-07 10:12] LABS: ALBUMIN 3.3 g/dl (3.4-5.0); BILIRUBIN,TOTAL 0.5 mg/dL (0.2-1); BLOOD UREA NITROGEN 12.9 mg/dL (7-18); CALCIUM 8.7 mg/dL (8.5-10.1); CREATININE 0.7 mg/dL (0.55-1.3); POTASSIUM 4.1 mmol/L (3.5-5.1); TOT PROT 7.8 g/dl (6.4-8.2)
--- NOTE | 2019-11-07 11:57 | PN ---
[facility] CIWA - CIWA Score Nausea/Vomitin-Mild Nausea/No Vomiting Muscle Tremors: 3 Anxiety: 3 Agitation: 1-Slight > Activity Paroxysmal Sweats: 2 Orientation: 0-Oriented Tacttile Disturbances: 1-Very Mild Itch/Numbness Auditory Disturbances: 1-Very Mild Visual Disturbances: 0-None Headache: 0-None Present CIWA-Ar Total Score: 12 S Progress Note (SOAP) Subjective: 59 years old male admitted on 11/06/19 for alcohol and benzo withdrawal sx management treated with ativan detox regimen ate breakfast ambulating on hallway social with peers in day room Objective: 11/07/19 11:57 Vital Signs Temperature 97.3 F L 11/07/19 09:11 Pulse Rate 95 H 11/07/19 09:11 Respiratory Rate 16 11/07/19 09:11 Blood Pressure 115/77 11/07/19 09:11 O2 Sat by Pulse Oximetry (%) Laboratory Last Values WBC 4.7 K/mm3 (4.0-10.0) 11/07/19 07:50 RBC 4.96 M/mm3 (4.00-5.60) 11/07/19 07:50 Hgb 13.5 GM/dL (11.7-16.9) 11/07/19 07:50 Hct 41.6 % (35.4-49) 11/07/19 07:50 MCV 83.9 fl (80-96) 11/07/19 07:50 MCH 27.3 pg (25.7-33.7) 11/07/19 07:50 MCHC 32.6 g/dl (32.0-35.9) 11/07/19 07:50 RDW 16.1 % (11.9-15.9) H 11/07/19 07:50 Plt Count 235 K/MM3 (134-434) 11/07/19 07:50 MPV 8.6 fl (7.5-11.1) 11/07/19 07:50 Sodium 142 mmol/L (136-145) 11/07/19 07:50 Potassium 4.1 mmol/L (3.5-5.1) 11/07/19 07:50 Chloride 107 mmol/L (98-107) 11/07/19 07:50 Carbon Dioxide 30 mmol/L (21-32) 11/07/19 07:50 Anion Gap 5 MMOL/L (8-16) L 11/07/19 07:50 BUN 12.9 mg/dL (7-18) 11/07/19 07:50 Creatinine 0.7 mg/dL (0.55-1.3) 11/07/19 07:50 Est GFR (CKD-EPI)AfAm 121.41 11/07/19 07:50 Est GFR (CKD-EPI)NonAf 104.76 11/07/19 07:50 Random Glucose 78 mg/dL (74-106) 11/07/19 07:50 Calcium 8.7 mg/dL (8.5-10.1) 11/07/19 07:50 Total Bilirubin 0.5 mg/dL (0.2-1) 11/07/19 07:50 AST 67 U/L (15-37) H 11/07/19 07:50 ALT 67 U/L (13-61) H 11/07/19 07:50 Alkaline Phosphatase 61 U/L (45-117) 11/07/19 07:50 Total Protein 7.8 g/dl (6.4-8.2) 11/07/19 07:50 Albumin 3.3 g/dl (3.4-5.0) L 11/07/19 07:50 RPR Titer Nonreactive (NONREACTIVE) 11/07/19 07:50 lab noted Assessment: 11/07/19 11:57 alcohol and benzo withdrawal sx Plan: continue ativan detox regimen
[2019-11-07] MEDS ORDERED: FLU VACCINE QUAD 60 MCG/0.5 ML (MDV 19-20) IM ONE (12:00)
[2019-11-07] MEDS: THIAMINE HCL 100 MG TABLET (FP) PO SCH (22:31)
[2019-11-08] MEDS: LORazepam 1 MG TABLET PO SCH ×4 (07:04→22:19)
--- NOTE | 2019-11-08 09:46 | PN ---
S CIWA - CIWA Score Nausea/Vomitin-No Nausea/No Vomiting Muscle Tremors: 2 Anxiety: 3 Agitation: 1-Slight > Activity Paroxysmal Sweats: 1-Minimal Palms Moist Orientation: 0-Oriented Tacttile Disturbances: 0-None Auditory Disturbances: 0-None Visual Disturbances: 0-None Headache: 0-None Present CIWA-Ar Total Score: 7 S Progress Note (SOAP) Subjective: 59 years old male admitted on 11/06/19 for alcohol and benzo withdrawal sx treated with ativan detox regimen ambulating on hallway social with peers discuss aftercare with staff prefers to go to [facility] for the safety of recovery Objective: 11/08/19 09:46 Vital Signs Temperature 97.3 F L 11/08/19 09:11 Pulse Rate 89 11/08/19 09:11 Respiratory Rate 18 11/08/19 09:11 Blood Pressure 127/87 11/08/19 09:11 O2 Sat by Pulse Oximetry (%) Laboratory Last Values WBC 4.7 K/mm3 (4.0-10.0) 11/07/19 07:50 RBC 4.96 M/mm3 (4.00-5.60) 11/07/19 07:50 Hgb 13.5 GM/dL (11.7-16.9) 11/07/19 07:50 Hct 41.6 % (35.4-49) 11/07/19 07:50 MCV 83.9 fl (80-96) 11/07/19 07:50 MCH 27.3 pg (25.7-33.7) 11/07/19 07:50 MCHC 32.6 g/dl (32.0-35.9) 11/07/19 07:50 RDW 16.1 % (11.9-15.9) H 11/07/19 07:50 Plt Count 235 K/MM3 (134-434) 11/07/19 07:50 MPV 8.6 fl (7.5-11.1) 11/07/19 07:50 Sodium 142 mmol/L (136-145) 11/07/19 07:50 Potassium 4.1 mmol/L (3.5-5.1) 11/07/19 07:50 Chloride 107 mmol/L (98-107) 11/07/19 07:50 Carbon Dioxide 30 mmol/L (21-32) 11/07/19 07:50 Anion Gap 5 MMOL/L (8-16) L 11/07/19 07:50 BUN 12.9 mg/dL (7-18) 11/07/19 07:50 Creatinine 0.7 mg/dL (0.55-1.3) 11/07/19 07:50 Est GFR (CKD-EPI)AfAm 121.41 11/07/19 07:50 Est GFR (CKD-EPI)NonAf 104.76 11/07/19 07:50 Random Glucose 78 mg/dL (74-106) 11/07/19 07:50 Calcium 8.7 mg/dL (8.5-10.1) 11/07/19 07:50 Total Bilirubin 0.5 mg/dL (0.2-1) 11/07/19 07:50 AST 67 U/L (15-37) H 11/07/19 07:50 ALT 67 U/L (13-61) H 11/07/19 07:50 Alkaline Phosphatase 61 U/L (45-117) 11/07/19 07:50 Total Protein 7.8 g/dl (6.4-8.2) 11/07/19 07:50 Albumin 3.3 g/dl (3.4-5.0) L 11/07/19 07:50 RPR Titer Nonreactive (NONREACTIVE) 11/07/19 07:50 lab noted Assessment: 11/08/19 09:46 alcohol and benzo withdrawal sx Plan: continue ativan detox regimen
[2019-11-08] MEDS: PRENATAL VITAMINS W/ FOLIC ACID TABLET (FP) PO SCH (10:15)
[2019-11-08 14:16] LABS: URINE APPEARANCE CLEAR; URINE BILIRUBIN NEGATIVE (NEGATIVE); URINE COLOR YELLOW; URINE GLUCOSE (UA) NEGATIVE (NEGATIVE); URINE KETONE NEGATIVE (NEGATIVE); URINE LEUK ESTERASE NEGATIVE (NEGATIVE); URINE NITRITE NEGATIVE (NEGATIVE); URINE PROTEIN NEGATIVE (NEGATIVE)
[2019-11-08] MEDS: THIAMINE HCL 100 MG TABLET (FP) PO SCH (22:19)
[2019-11-09] MEDS ORDERED: LORazepam 0.5 MG TABLET PO PRN
[2019-11-09] MEDS: LORazepam 0.5 MG TABLET PO SCH ×4 (06:00→22:09)
--- NOTE | 2019-11-09 10:12 | PN ---
[facility] CIWA - CIWA Score Nausea/Vomitin-No Nausea/No Vomiting Muscle Tremors: 1-None Visible, but [place] Anxiety: 1-Mildly Anxious Agitation: 1-Slight > Activity Paroxysmal Sweats: 2 Orientation: 0-Oriented Tacttile Disturbances: 0-None Auditory Disturbances: 0-None Visual Disturbances: 0-None Headache: 0-None Present CIWA-Ar Total Score: 5 S Progress Note (SOAP) Subjective: 59 years old male admitted on 11/06/19 for alcohol benzo withdrawal sx management treated with ativan detox regimen feeling better today less tremor mild anxiety discuss aftercare with staff Objective: 11/09/19 10:12 Vital Signs Temperature 98.7 F 11/09/19 09:34 Pulse Rate 73 11/09/19 09:34 Respiratory Rate 18 11/09/19 09:34 Blood Pressure 113/75 11/09/19 09:34 O2 Sat by Pulse Oximetry (%) Laboratory Last Values WBC 4.7 K/mm3 (4.0-10.0) 11/07/19 07:50 RBC 4.96 M/mm3 (4.00-5.60) 11/07/19 07:50 Hgb 13.5 GM/dL (11.7-16.9) 11/07/19 07:50 Hct 41.6 % (35.4-49) 11/07/19 07:50 MCV 83.9 fl (80-96) 11/07/19 07:50 MCH 27.3 pg (25.7-33.7) 11/07/19 07:50 MCHC 32.6 g/dl (32.0-35.9) 11/07/19 07:50 RDW 16.1 % (11.9-15.9) H 11/07/19 07:50 Plt Count 235 K/MM3 (134-434) 11/07/19 07:50 MPV 8.6 fl (7.5-11.1) 11/07/19 07:50 Sodium 142 mmol/L (136-145) 11/07/19 07:50 Potassium 4.1 mmol/L (3.5-5.1) 11/07/19 07:50 Chloride 107 mmol/L (98-107) 11/07/19 07:50 Carbon Dioxide 30 mmol/L (21-32) 11/07/19 07:50 Anion Gap 5 MMOL/L (8-16) L 11/07/19 07:50 BUN 12.9 mg/dL (7-18) 11/07/19 07:50 Creatinine 0.7 mg/dL (0.55-1.3) 11/07/19 07:50 Est GFR (CKD-EPI)AfAm 121.41 11/07/19 07:50 Est GFR (CKD-EPI)NonAf 104.76 11/07/19 07:50 Random Glucose 78 mg/dL (74-106) 11/07/19 07:50 Calcium 8.7 mg/dL (8.5-10.1) 11/07/19 07:50 Total Bilirubin 0.5 mg/dL (0.2-1) 11/07/19 07:50 AST 67 U/L (15-37) H 11/07/19 07:50 ALT 67 U/L (13-61) H 11/07/19 07:50 Alkaline Phosphatase 61 U/L (45-117) 11/07/19 07:50 Total Protein 7.8 g/dl (6.4-8.2) 11/07/19 07:50 Albumin 3.3 g/dl (3.4-5.0) L 11/07/19 07:50 Urine Color Yellow 11/08/19 10:15 Urine Appearance Clear 11/08/19 10:15 Urine pH 7.0 (5.0-8.0) 11/08/19 10:15 Ur Specific [place] 1.023 (1.010-1.035) 11/08/19 10:15 Urine Protein Negative (NEGATIVE) 11/08/19 10:15 Urine Glucose (UA) Negative (NEGATIVE) 11/08/19 10:15 Urine Ketones Negative (NEGATIVE) 11/08/19 10:15 Urine Blood Negative (NEGATIVE) 11/08/19 10:15 Urine Nitrite Negative (NEGATIVE) 11/08/19 10:15 Urine Bilirubin Negative (NEGATIVE) 11/08/19 10:15 Urine Urobilinogen 1.0 mg/dL (0.2-1.0) 11/08/19 10:15 Ur Leukocyte Esterase Negative (NEGATIVE) 11/08/19 10:15 RPR Titer Nonreactive (NONREACTIVE) 11/07/19 07:50 lab noted Assessment: 11/09/19 10:12 alcohol benzo withdrawal Plan: ativan regimen
[2019-11-09] MEDS: PRENATAL VITAMINS W/ FOLIC ACID TABLET (FP) PO SCH (10:32)
[2019-11-09] MEDS: THIAMINE HCL 100 MG TABLET (FP) PO SCH (22:09)
[2019-11-10] MEDS ORDERED: LORazepam 0.5 MG TABLET PO ONE (05:00)
--- NOTE | 2019-11-10 09:14 | DS ---
[facility] Detox Discharge Summary Admission Date: 11/06/19 Discharge Date: 11/10/19 - History Present History: Alcohol Dependence, Sedative Dependence Additional Comments: 59 years old male admitted on 11/06/19 for alcohol and benzo withdrawal sx management treated with ativan detox regimen patient tolerated well alert oriented x 3 cardiac s1s2 regular rate rhythm respiratory clear lung bilaterally on auscultation extremities full range of motion - Physical Exam Results Vital Signs: Vital Signs Temperature 98.6 F 11/10/19 06:38 Pulse Rate 70 11/10/19 06:38 Respiratory Rate 18 11/10/19 06:38 Blood Pressure 115/74 11/10/19 06:38 O2 Sat by Pulse Oximetry (%) Pertinent Admission Physical Exam Findings: alcohol and benzo withdrawal Laboratory Last Values WBC 4.7 K/mm3 (4.0-10.0) 11/07/19 07:50 RBC 4.96 M/mm3 (4.00-5.60) 11/07/19 07:50 Hgb 13.5 GM/dL (11.7-16.9) 11/07/19 07:50 Hct 41.6 % (35.4-49) 11/07/19 07:50 MCV 83.9 fl (80-96) 11/07/19 07:50 MCH 27.3 pg (25.7-33.7) 11/07/19 07:50 MCHC 32.6 g/dl (32.0-35.9) 11/07/19 07:50 RDW 16.1 % (11.9-15.9) H 11/07/19 07:50 Plt Count 235 K/MM3 (134-434) 11/07/19 07:50 MPV 8.6 fl (7.5-11.1) 11/07/19 07:50 Sodium 142 mmol/L (136-145) 11/07/19 07:50 Potassium 4.1 mmol/L (3.5-5.1) 11/07/19 07:50 Chloride 107 mmol/L (98-107) 11/07/19 07:50 Carbon Dioxide 30 mmol/L (21-32) 11/07/19 07:50 Anion Gap 5 MMOL/L (8-16) L 11/07/19 07:50 BUN 12.9 mg/dL (7-18) 11/07/19 07:50 Creatinine 0.7 mg/dL (0.55-1.3) 11/07/19 07:50 Est GFR (CKD-EPI)AfAm 121.41 11/07/19 07:50 Est GFR (CKD-EPI)NonAf 104.76 11/07/19 07:50 Random Glucose 78 mg/dL (74-106) 11/07/19 07:50 Calcium 8.7 mg/dL (8.5-10.1) 11/07/19 07:50 Total Bilirubin 0.5 mg/dL (0.2-1) 11/07/19 07:50 AST 67 U/L (15-37) H 11/07/19 07:50 ALT 67 U/L (13-61) H 11/07/19 07:50 Alkaline Phosphatase 61 U/L (45-117) 11/07/19 07:50 Total Protein 7.8 g/dl (6.4-8.2) 11/07/19 07:50 Albumin 3.3 g/dl (3.4-5.0) L 11/07/19 07:50 Urine Color Yellow 11/08/19 10:15 Urine Appearance Clear 11/08/19 10:15 Urine pH 7.0 (5.0-8.0) 11/08/19 10:15 Ur Specific [place] 1.023 (1.010-1.035) 11/08/19 10:15 Urine Protein Negative (NEGATIVE) 11/08/19 10:15 Urine Glucose (UA) Negative (NEGATIVE) 11/08/19 10:15 Urine Ketones Negative (NEGATIVE) 11/08/19 10:15 Urine Blood Negative (NEGATIVE) 11/08/19 10:15 Urine Nitrite Negative (NEGATIVE) 11/08/19 10:15 Urine Bilirubin Negative (NEGATIVE) 11/08/19 10:15 Urine Urobilinogen 1.0 mg/dL (0.2-1.0) 11/08/19 10:15 Ur Leukocyte Esterase Negative (NEGATIVE) 11/08/19 10:15 RPR Titer Nonreactive (NONREACTIVE) 11/07/19 07:50 lab noted Vital Signs Temperature 98.6 F 11/10/19 06:38 Pulse Rate 70 11/10/19 06:38 Respiratory Rate 18 11/10/19 06:38 Blood Pressure 115/74 11/10/19 06:38 O2 Sat by Pulse Oximetry (%) - Treatment Hospital Course: Detox Protocol Followed, Detoxed Safely, Responded well, Discharged Condition Good, Rehab Referral Accepted Patient has Accepted a Rehab Referral to: cr - Medication Discharge Medications: Ambulatory Orders NK [No Known Home Medication] 11/06/19 - Diagnosis (1) Weight loss Current Visit: Yes Status: Acute (2) Alcohol dependence with uncomplicated withdrawal Current Visit: Yes Status: Acute (3) HIV (human immunodeficiency virus infection) Current Visit: Yes Status: Chronic Qualifiers: HIV symptom status: asymptomatic Qualified Code(s): Z21 - Asymptomatic human immunodeficiency virus [HIV] infection status (4) Hepatitis C Current Visit: Yes Status: Chronic Qualifiers: Viral hepatitis chronicity: chronic Hepatic coma status: without hepatic coma Qualified Code(s): B18.2 - Chronic viral hepatitis C - AMA Did Patient Leave Against Medical Advice: No CIWA Score - CIWA Score Nausea/Vomitin-No Nausea/No Vomiting Muscle Tremors: None Anxiety: 1-Mildly Anxious Agitation: 0-Normal Activity Paroxysmal Sweats: 1-Minimal Palms Moist Orientation: 0-Oriented Tacttile Disturbances: 0-None Auditory Disturbances: 0-None Visual Disturbances: 0-None Headache: 0-None Present CIWA-Ar Total Score: 2
[2019-11-10 09:26] VITALS: BP 104/80; PULSE 96; TEMP 97.4
[2019-11-10] MEDS: PRENATAL VITAMINS W/ FOLIC ACID TABLET (FP) PO SCH (10:45)
== END 2019-11-10 12:14 | disposition other institution (70) | DRG 773 ==
LOC: YASAS 10:08 → Y3N 11:03
PROVIDERS: ADMIT Allergy & Immunology; ATTEND Allergy & Immunology
PROC: HZ2ZZZZ Detoxification Services for Substance Abuse Treatment (ICD-10-PCS; principal; 2019-11-06)
DX: F10.230 Alcohol dependence with withdrawal, uncomplicated (principal); F11.20 Opioid dependence, uncomplicated; F13.230 Sedative, hypnotic or anxiolytic dependence with withdrawal, uncomplicated; F14.20 Cocaine dependence, uncomplicated; F16.20 Hallucinogen dependence, uncomplicated; Z21 Asymptomatic human immunodeficiency virus [HIV] infection status; F12.20 Cannabis dependence, uncomplicated; B18.2 Chronic viral hepatitis C; R63.4 Abnormal weight loss; Z68.22 Body mass index [BMI] 22.0-22.9, adult
CPT/HCPCS: 36415; 71046-TC-FY; 80053; 81003; 85027; 86593

== ENCOUNTER 2019-11-10 12:24 | Inpatient (IN) | payer OTHER ==
--- NOTE | 2019-11-10 09:22 | HP ---
[facility] Rehab Assess/Revision - Admission History Admitted to Rehab from: [facility] Date of Admission to Rehab: 11/10/19 - Findings Detox History & Physical reviewed: Yes Concur with findings: Yes Comments/Additional Findings: transferred from detox to rehab admission as per protocol Inpatient Rehab Admission - Rehab Decision to Admit Inpatient rehab admission?: Yes - Initial Determination Are CD services needed?: Yes Free of communicable disease: Yes Not in need of hospitalization: Yes - Rehab Admission Criteria Previous failed treatment: Yes Poor recovery environment: Yes Comorbidities: Yes Lacks judgement: Yes Patient is meeting Inpatient Rehab admission criteria:: Yes
[~2019-11-10 12:24] MED LIST: ACETAMINOPHEN 325 MG TABLET (FP) PO PRN; IBUPROFEN 400 MG TABLET (FP) PO PRN; LOPERAMIDE HCL 2 MG CAPSULE PO PRN; MAG HYDROX/AL HYDROX/SIMETH 30 ML UNIT-DOSE CUP PO PRN; MAGNESIUM CITRATE 300 ML BOTTLE PO PRN; MAGNESIUM HYDROX 2400MG/30ML ORAL SUSPENSION 30 ML CUP PO PRN; MENTHOL/PHENOL 1 EACH UD MM PRN; P-EPHED 60MG/TRIPROLIDI 2.5MG TABLET PO PRN; guaiFENesin 200 MG/10 ML 10 ML UNIT-DOSE CUPS PO PRN
[2019-11-10] MEDS: PRENATAL VITAMINS W/ FOLIC ACID TABLET (FP) PO SCH (15:30)
[2019-11-10] MEDS: THIAMINE HCL 100 MG TABLET (FP) PO SCH (21:54)
[2019-11-10] MEDS ORDERED: MELATONIN 5 MG TABLETS PO PRN (22:00)
[2019-11-11] MEDS: PRENATAL VITAMINS W/ FOLIC ACID TABLET (FP) PO SCH (11:12)
--- NOTE | 2019-11-11 12:21 | PN ---
[facility] Progress Note Note: Pt was admitted to rehab yesterday after completing detox. Pt uses alcohol,xanax ,cocaine,marijuana,heroin and klonopin. Pt does not want to go to methdadone MAT. Encouraged suboxone. But pt would like to be "clean" as he had episodes of not using any substance. Encouraged pt to talk to counselor to get referrals for methadone and suboxone in case he relapses. Has HIV but has not taken meds for several months. Was undetectable at that time - pt will go to [facility] for care Had one episode of seizure last year but none since then. He says was several different drugs at that time. Does not take any meds. Vital Signs - 24 hr 11/10/19 11/11/19 11/11/19 13:27 00:30 03:30 Temperature 97.6 F Pulse Rate 83 Respiratory 18 20 18 Rate Blood Pressure 114/69 11/11/19 07:01 Temperature 97.3 F L Pulse Rate 68 Respiratory 18 Rate Blood Pressure 97/69 a/p: continue rehab and plans as noted above
[2019-11-11] MEDS: THIAMINE HCL 100 MG TABLET (FP) PO SCH (21:25)
[2019-11-12] MEDS: PRENATAL VITAMINS W/ FOLIC ACID TABLET (FP) PO SCH (10:44)
[2019-11-12] MEDS: THIAMINE HCL 100 MG TABLET (FP) PO SCH (22:04)
[2019-11-13] MEDS: PRENATAL VITAMINS W/ FOLIC ACID TABLET (FP) PO SCH (10:11)
[2019-11-13] MEDS: THIAMINE HCL 100 MG TABLET (FP) PO SCH (23:22)
[2019-11-14] MEDS: PRENATAL VITAMINS W/ FOLIC ACID TABLET (FP) PO SCH (10:17)
[2019-11-14] MEDS: THIAMINE HCL 100 MG TABLET (FP) PO SCH (22:48)
[2019-11-15] MEDS: PRENATAL VITAMINS W/ FOLIC ACID TABLET (FP) PO SCH (10:52)
[2019-11-15] MEDS: THIAMINE HCL 100 MG TABLET (FP) PO SCH (22:13)
[2019-11-16] MEDS: PRENATAL VITAMINS W/ FOLIC ACID TABLET (FP) PO SCH (10:40)
[2019-11-16] MEDS: THIAMINE HCL 100 MG TABLET (FP) PO SCH (22:15)
[2019-11-17] MEDS: PRENATAL VITAMINS W/ FOLIC ACID TABLET (FP) PO SCH (10:40)
[2019-11-17] MEDS ORDERED: FLU VACCINE QUAD 60 MCG/0.5 ML (MDV 19-20) IM ONE (12:45)
[2019-11-17] MEDS: THIAMINE HCL 100 MG TABLET (FP) PO SCH (22:48)
[2019-11-18 07:33] VITALS: PULSE 71
[2019-11-18] MEDS: PRENATAL VITAMINS W/ FOLIC ACID TABLET (FP) PO SCH (10:50)
[2019-11-18] MEDS: THIAMINE HCL 100 MG TABLET (FP) PO SCH (21:46)
[2019-11-19 07:20] VITALS: BP 132/75; TEMP 97.5
[2019-11-19] MEDS: PRENATAL VITAMINS W/ FOLIC ACID TABLET (FP) PO SCH (09:05)
--- NOTE | 2019-11-19 10:00 | DS ---
[facility] Rehab Discharge Summary - [facility] Rehab Discharge Summary Admission Date: 11/10/19 Discharge Date: 11/19/19 - History Present History: Alcohol dependence, Cannabis dependence, Cocaine dependence Additional Comments: Pt is a 59 y/o male with a hx of PABLO admitted to rehab from detox and discharging today. Pt was referred to CD aftercare to [facility] Out[facility] program on [address] [place], [place]. Pt has primary care with [facility] on [address] [place], [place]. Pertinent Past History: HIV+(no meds) Hep C - Discharge Physical Exam Vital Signs: Vital Signs Temperature 97.5 F L 11/19/19 07:19 Pulse Rate 71 11/19/19 07:19 Respiratory Rate 18 11/19/19 07:19 Blood Pressure 132/75 11/19/19 07:19 O2 Sat by Pulse Oximetry (%) Alert o x 3 nad oob ambulating with steady gait cardiac:s1 s2, rrr lungs:cta,vivian abdomen:soft,+bs,nt,nd extremities/skin:no edema,full ROM/weight bearing; skin intact. Pertinent Admission Physical Exam Findings: unremarkable - Treatment Discharge Condition: Discharge condition good Hospital Course: CD aftercare referral accepted to [facility] Rehabilitated safely and responded well - Medication Discharge Medications: Ambulatory Orders NK [No Known Home Medication] 11/06/19 - Medication-Assisted Treatment (MAT) Medication-Assisted Treatment (MAT): No - Discharge Instructions Diet, activity, other medical instructions: Diet:Regular Activity: oob ad dano Other medical instructions:follow up with CD aftercare as scheduled and primary care within 1-2 weeks after discharge. - Diagnosis (1) Alcohol dependence Status: Chronic (2) Cannabis dependence Status: Chronic (3) HIV (human immunodeficiency virus infection) Status: Chronic Qualifiers: HIV symptom status: asymptomatic Qualified Code(s): Z21 - Asymptomatic human immunodeficiency virus [HIV] infection status (4) Hepatitis C Status: Chronic Qualifiers: Viral hepatitis chronicity: chronic Hepatic coma status: without hepatic coma Qualified Code(s): B18.2 - Chronic viral hepatitis C - Follow-up Referral Minutes to complete discharge: 20 - AMA Did Patient Leave Against Medical Advice: No
== END 2019-11-19 09:30 | disposition home or self-care (01) | DRG 772 ==
LOC: YASAS 12:24 → Y5N 12:25
PROVIDERS: ADMIT Neuromusculoskeletal Medicine & OMM; ATTEND Neuromusculoskeletal Medicine & OMM
PROC: HZ42ZZZ Group Counseling for Substance Abuse Treatment, Cognitive-Behavioral (ICD-10-PCS; principal; 2019-11-10)
DX: F10.20 Alcohol dependence, uncomplicated (principal); F14.20 Cocaine dependence, uncomplicated; F12.20 Cannabis dependence, uncomplicated; F17.210 Nicotine dependence, cigarettes, uncomplicated; Z21 Asymptomatic human immunodeficiency virus [HIV] infection status; B18.2 Chronic viral hepatitis C
CPT/HCPCS: G0008; Q2036

== ENCOUNTER 2020-08-18 13:27 | Inpatient (IN) | payer OTHER ==
--- NOTE | 2020-08-18 14:27 | BHS.RME ---
Substance Use & Tx History - Substance Use History Alcohol Substance amount: one pint rum, 6 pack 12 ounce beer Frequency of use: Daily Substance route: Oral Date of Last Use: 08/18/20 Xanax Substance amount: powder mixed in THC and K2 Frequency of use: Daily Substance route: Smoking Date of Last Use: 08/17/20 Marijuana/Hashish Substance amount: one gram Frequency of use: Daily Substance route: Smoking Date of Last Use: 08/17/20 Synthetic Cannabinoid Substance amount: one gram Frequency of use: Daily Substance route: Smoking Date of Last Use: 08/17/20 - Last Treatment Date of last treatment: October 2019, [facility], detox and rehab Physical/Psych/Mental Status - Behavior General Behavior: Decreased activity Eye Contact: Normal - Cooperativeness Cooperativeness: Cooperative - Thinking Thought Processes: Tight Thought content: Future oriented - Physical Health Problems Is patient presently having any pain?: Yes (low back pain he attributes to K2 withdrawal) Does patient presently have any injuries (include location): No Does patient currently have a fever: No CIWA Nausea/Vomitin-Mild Nausea/No Vomiting Muscle Tremors: 4-Moderate,w/Arms Extend Anxiety: 3 Agitation: 3 Paroxysmal Sweats: 2 Orientation: 2-Disoriented Date<2 days Tacttile Disturbances: 0-None Auditory Disturbances: 1-Very Mild Visual Disturbances: 1-Very Mild Sensitivity Headache: 0-None Present CIWA-Ar Total Score: 17
[2020-08-18 16:13] VITALS: BMI 22.8
--- NOTE | 2020-08-18 16:30 | HP ---
CIWA Score Nausea/Vomitin (vomiting x 3) Muscle Tremors: 4-Moderate,w/Arms Extend Anxiety: 4-Mod. Anxious/Guarded Agitation: 3 Paroxysmal Sweats: 2 Orientation: 1-Uncertain about Date Tacttile Disturbances: 0-None Auditory Disturbances: 0-None Visual Disturbances: 0-None Headache: 2-Mild CIWA-Ar Total Score: 19 - Admission Criteria OASAS Guidelines: Admission for Medically Managed Detox: Requires at least one of the followin. CIWA greater than 12 2. Seizures within the past 24 hours 3. Delirium tremens within the past 24 hours 4. Hallucinations within the past 24 hours 5. Acute intervention needed for co occurring medical disorder 6. Acute intervention needed for co occurring psychiatric disorder 7. Severe withdrawal that cannot be handled at a lower level of care (continued vomiting, continued diarrhea, abnormal vital signs) requiring intravenous medication and/or fluids 8. Admitting History and Physical - Past Medical History Infectious Disease: Yes: HIV (in 1993 no medication) - Smoking History Smoking history: Current every day smoker Have you smoked in the past 12 months: Yes Aproximately how many cigarettes per day: 10 If you are a former smoker, when did you quit?: 2010 - Alcohol/Substance Use Hx Alcohol Use: Yes History of Substance Use: reports: Cocaine, Heroin, Marijuana, Tranquilizers - Social History Occupation: unemployed History of Recent Travel: No Admission [facility] Chief Complaint: Seeking admission to detox from alcohol and Xanax Allergies/Adverse Reactions: Allergies Allergy/AdvReac Type Severity Reaction Status Date / Time No Known Allergies Allergy Verified 08/18/20 16:52 History of Present Illness: 60 years old male with a long history of alcohol dependence (since age 24) is seeking admission to detox. His last admission was for the period 11/06/2019- 11/19/2019 and he relapsed on his birthday, July 06, 2018. He reports that he drinks 1 pint Rum and 6 pack x 12oz. beer daily. He has medical history of HIV+, Hep. C, psych. history of depression and he denies suicidal ideation at this time. He is unemployed on [employer], lives alone in an apartment and he denies any legal issues. 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 His urine was positive for marijuana and benzo. Patient denies use of benzo. and reports that benzo. may have been mixed in his marijuana. Exam Limitations: No Limitations - Ebola screening Have you traveled outside of the country in the last 21 days: No Have you had contact with anyone from an Ebola affected area: No Have you been sick,other than usual withdrawal symptoms: No Do you have a fever: No - Review of Systems Constitutional: Chills, Malaise, Night Sweats, Changes in sleep EENT: reports: No Symptoms Reported Respiratory: reports: No Symptoms reported Cardiac: reports: No Symptoms Reported GI: reports: Nausea, Vomiting (x 3) : reports: No Symptoms Reported Musculoskeletal: reports: No Symptoms Reported Integumentary: reports: Dryness, Flushing Neuro: reports: Headache, Tremors Endocrine: reports: No Symptoms Reported Hematology: reports: No Symptoms Reported Psychiatric: reports: Mood/Affect Appropiate, Anxious Other Systems: Reviewed and Negative Patient History - Patient Medical History Hx Anemia: No Hx Asthma: No Hx Chronic Obstructive Pulmonary Disease (COPD): No Hx Cancer: No Hx Cardiac Disorders: No Hx Congestive Heart Failure: No Hx Hypertension: No Hx Hypercholesterolemia: No Hx Pacemaker: No HX Cerebrovascular Accident: No Hx Seizures: Yes (alcohol related seizure . Last seizure was on 01/2019) Hx Diabetes: No Hx Gastrointestinal Disorders: No Hx Liver Disease: Yes (Hep. C) Hx Genitourinary Disorders: No Hx Sexually Transmitted Disorders: Yes Hx Renal Disease (ESRD): No Hx Thyroid Disease: No Hx Human Immunodeficiency Virus (HIV): Yes (was dx 1994. was on meds his md held it for now. not taking any medication) Hx Hepatitis C: Yes Hx Depression: No Hx Suicide Attempt: No (Denies suicidal ideation at this time) Hx Bipolar Disorder: No Hx Schizophrenia: No Other Medical History: H/O TB 2008 - Patient Surgical History Past Surgical History: No Hx Neurologic Surgery: No Hx Cataract Extraction: No Hx Cardiac Surgery: No Hx Lung Surgery: No Hx Abdominal Surgery: No Hx Appendectomy: No Hx Cholecystectomy: No Hx Genitourinary Surgery: No Hx Orthopedic Surgery: No Other Surgical History: DENIES. Anesthesia Reaction: No - PPD History Previous Implant?: No (PPD POSITIVE. TREATED WITH INH AND RIFAMPRIN & B12) Documented Results: Positive w/proof Implanted On Prior R Admission?: No Results: Cxray(-)06/18/18 PPD to be Administered?: No - Reproductive History Patient is a Female of Child Bearing Age (11 -55 yrs old): No (Male) - Smoking Cessation Smoking history: Former smoker Have you smoked in the past 12 months: No If you are a former smoker, when did you quit?: 2010 Hx Chewing Tobacco Use: No Initiated information on smoking cessation: No - Substance & Tx. History Hx Alcohol Use: Yes Hx Substance Use: Yes Substance Use Type: Alcohol, Marijuana Hx Substance Use Treatment: Yes ([facility]) - Substances abused Alcohol Amount used: 1 pint Rum and 6 pack x 12oz. beer Age of first use: 24 Date of last use: 08/18/20 Admission Physical Exam [facility] - Vital Signs Vital Signs: Vital Signs - 24 hr 08/18/20 16:12 Temperature 97.2 F L Pulse Rate 74 Respiratory 18 Rate Blood Pressure 157/98 - Physical General Appearance: Yes: Moderate Distress, Tremorous, Sweating, Anxious HEENTM: Yes: Within Normal Limits Respiratory: Yes: Lungs Clear, Normal Breath Sounds, No Respiratory Distress Neck: Yes: Within Normal Limits Breast: Yes: Breast Exam Deferred Cardiology: Yes: Regular Rhythm, Regular Rate Abdominal: Yes: Within Normal Limits Genitourinary: Yes: Within Normal Limits Back: Yes: Normal Inspection Musculoskeletal: Yes: Within Normal Limits Extremities: Yes: Tremors 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: Yes: Within Normal Limits Integumentary: Yes: Within Normal Limits Lymphatic: Yes: Within Normal Limits - Diagnostic (1) Elevated blood pressure reading with diagnosis of hypertension Current Visit: Yes Status: Chronic (2) Alcohol dependence with uncomplicated withdrawal Current Visit: Yes Status: Acute (3) Cannabis dependence Current Visit: Yes Status: Chronic (4) HIV (human immunodeficiency virus infection) Current Visit: Yes Status: Chronic Qualifiers: HIV symptom status: asymptomatic Qualified Code(s): Z21 - Asymptomatic human immunodeficiency virus [HIV] infection status (5) Hepatitis C Current Visit: Yes Status: Chronic Qualifiers: Viral hepatitis chronicity: chronic Hepatic coma status: without hepatic coma Qualified Code(s): B18.2 - Chronic viral hepatitis C Cleared for Admission S - Detox or Rehab [facility] Level of Care: Medically Managed Detox Regimen/Protocol: Ativan Claeared for Rehab Admission: No Breathalyzer - Breathalyzer Breathalyzer: 0 Urine Drug Screen - Test Device Lot number: [id number] Expiration date: 07/04/22 - Control Is test valid?: Yes - Results Drug screen NEGATIVE: No Urine drug screen results: THC-Marijuana, BZO-Benzodiazepines Inpatient Rehab Admission - Rehab Decision to Admit Inpatient rehab admission?: No
[2020-08-18] MEDS ORDERED: hydrOXYzine PAMOATE 25 MG CAPSULE (FP) PO PRN (16:53)
[2020-08-18] MEDS ORDERED: MENTHOL/PHENOL 1 EACH UD MM PRN (16:53)
[2020-08-18] MEDS ORDERED: LORazepam 1 MG TABLET PO PRN (16:53)
[2020-08-18] MEDS ORDERED: ONDANSETRON *ODT* 4 MG TABLET SL PRN (16:53)
[2020-08-18] MEDS ORDERED: ACETAMINOPHEN 325 MG TABLET (FP) PO PRN ×2 (16:53)
[2020-08-18] MEDS ORDERED: MAGNESIUM HYDROX 2400MG/30ML ORAL SUSPENSION 30 ML CUP PO PRN (16:53)
[2020-08-18] MEDS ORDERED: METHOCARBAMOL 500 MG TABLET PO PRN (16:53)
[2020-08-18] MEDS ORDERED: IBUPROFEN 400 MG TABLET (FP) PO PRN (16:53)
[2020-08-18] MEDS ORDERED: MAG HYDROX/AL HYDROX/SIMETH 30 ML UNIT-DOSE CUP PO PRN (16:53)
[2020-08-18] MEDS ORDERED: BISMUTH SUBSALICYLATE 524 MG/30 ML UD PO PRN (16:53)
[2020-08-18] MEDS ORDERED: MAGNESIUM CITRATE 300 ML BOTTLE PO PRN (16:53)
[2020-08-18] MEDS: LORazepam 2 MG TABLET PO SCH (22:43)
[2020-08-18] MEDS: MELATONIN 5 MG TABLETS PO SCH (22:43)
[2020-08-18] MEDS: THIAMINE HCL 100 MG TABLET (FP) PO SCH (22:43)
[2020-08-19] MEDS: LORazepam 2 MG TABLET PO SCH ×4 (06:26→23:05)
--- NOTE | 2020-08-19 09:04 | EKG ---
Test Reason : Blood Pressure : / mmHG Vent. Rate : 063 BPM Atrial Rate : 063 BPM P-R Int : 118 ms QRS Dur : 082 ms QT Int : 424 ms P-R-T Axes : 060 063 045 degrees QTc Int : 433 ms NORMAL SINUS RHYTHM NORMAL ECG WHEN COMPARED WITH ECG OF 15-JUL-2019 17:17, NO SIGNIFICANT CHANGE WAS FOUND Confirmed by Angelita Prado ([id number]) on 08/19/2020 9:04:05 AM Referred By: Confirmed By:Angelita Prado
[2020-08-19 09:20] LABS: MCH 27.1 pg (25.7-33.7); MCHC 32.6 g/dl (32.0-35.9); MEAN PLT VOLUME 7.9 fl (7.5-11.1); PLATELET COUNT 236 K/MM3 (134-434); RBC 5.18 M/mm3 (4.00-5.60); RDW 15.4 % (11.9-15.9); WHITE BLOOD COUNT 4.2 K/mm3 (4.0-10.0)
[2020-08-19 09:29] LABS: ALBUMIN 3.4 g/dl (3.4-5.0); BLOOD UREA NITROGEN 10.3 mg/dL (7-18); CALCIUM 8.8 mg/dL (8.5-10.1); CREATININE 0.9 mg/dL (0.55-1.3); POTASSIUM 4.1 mmol/L (3.5-5.1); TOT PROT 8.2 g/dl (6.4-8.2)
[2020-08-19 09:34] LABS: BILIRUBIN,TOTAL 0.6 mg/dL (0.2-1)
--- NOTE | 2020-08-19 12:55 | PN ---
[facility] CIWA - CIWA Score Nausea/Vomitin-No Nausea/No Vomiting Muscle Tremors: 3 Anxiety: 4-Mod. Anxious/Guarded Agitation: 2 Paroxysmal Sweats: 3 Orientation: 0-Oriented Tacttile Disturbances: 0-None Auditory Disturbances: 0-None Visual Disturbances: 0-None Headache: 0-None Present CIWA-Ar Total Score: 12 S Progress Note (SOAP) Subjective: Complaints of no appetite, tremors, sweats, and anxiety. Objective: 08/19/20 12:54 Vital Signs 08/19/20 08/19/20 08/19/20 05:28 09:30 10:00 Temperature 98.5 F 98.4 F Pulse Rate 74 92 H Respiratory 20 18 Rate Blood Pressure 124/74 135/88 O2 Sat by Pulse 99 99 99 Oximetry (%) Laboratory Last Values WBC 4.2 K/mm3 (4.0-10.0) 08/19/20 07:45 RBC 5.18 M/mm3 (4.00-5.60) 08/19/20 07:45 Hgb 14.0 GM/dL (11.7-16.9) 08/19/20 07:45 Hct 43.0 % (35.4-49) 08/19/20 07:45 MCV 83.0 fl (80-96) 08/19/20 07:45 MCH 27.1 pg (25.7-33.7) 08/19/20 07:45 MCHC 32.6 g/dl (32.0-35.9) 08/19/20 07:45 RDW 15.4 % (11.9-15.9) 08/19/20 07:45 Plt Count 236 K/MM3 (134-434) 08/19/20 07:45 MPV 7.9 fl (7.5-11.1) 08/19/20 07:45 Sodium 136 mmol/L (136-145) 08/19/20 07:45 Potassium 4.1 mmol/L (3.5-5.1) 08/19/20 07:45 Chloride 104 mmol/L (98-107) 08/19/20 07:45 Carbon Dioxide 28 mmol/L (21-32) 08/19/20 07:45 Anion Gap 4 MMOL/L (8-16) L 08/19/20 07:45 BUN 10.3 mg/dL (7-18) 08/19/20 07:45 Creatinine 0.9 mg/dL (0.55-1.3) 08/19/20 07:45 Est GFR (CKD-EPI)AfAm 108.73 08/19/20 07:45 Est GFR (CKD-EPI)NonAf 93.82 08/19/20 07:45 Random Glucose 81 mg/dL (74-106) 08/19/20 07:45 Calcium 8.8 mg/dL (8.5-10.1) 08/19/20 07:45 Total Bilirubin 0.6 mg/dL (0.2-1) 08/19/20 07:45 AST 51 U/L (15-37) H 08/19/20 07:45 ALT 57 U/L (13-61) 08/19/20 07:45 Alkaline Phosphatase 59 U/L (45-117) 08/19/20 07:45 Total Protein 8.2 g/dl (6.4-8.2) 08/19/20 07:45 Albumin 3.4 g/dl (3.4-5.0) 08/19/20 07:45 Syphilis Serology Non-reactive (NONREACTIVE) 08/19/20 07:45 Labs notes. Assessment: 08/19/20 12:54 Alert and oriented x 3, in no acute respiratory distress. Full ROM, ambulating in unit without assistance. Skin warm to touch without any lesions. Withdrawal symptoms. Plan: Continue detox protocol.
[2020-08-19] MEDS: PRENATAL VITAMINS W/ FOLIC ACID TABLET (FP) PO SCH (12:58)
[2020-08-19] MEDS: MELATONIN 5 MG TABLETS PO SCH (23:05)
[2020-08-19] MEDS: THIAMINE HCL 100 MG TABLET (FP) PO SCH (23:05)
[2020-08-20] MEDS: LORazepam 1 MG TABLET PO SCH ×2 (06:24→10:58)
[2020-08-20] MEDS: PRENATAL VITAMINS W/ FOLIC ACID TABLET (FP) PO SCH (10:57)
[2020-08-20 11:05] VITALS: BP 125/91; PULSE 72; TEMP 97.1
--- NOTE | 2020-08-20 12:53 | DS ---
[facility] Detox Discharge Summary Admission Date: 08/18/20 - History Present History: Alcohol Dependence, Cannabis Dependence, Sedative Dependence, K 2 Additional Comments: Pt decided to leave AMA despite encouragement from staff to complete detox. Pt instructed to call [phone] if sick or withdrawal sxs and to see her PCP within 3 days. 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 Patient later told staff that he h as to leave because he has to go and get a liver biopsy. Pt left in stable condition. Pertinent Past History: HCV HIV Alcohol related seizure disorder History of TB (treated in 2007) - Physical Exam Results Vital Signs: Vital Signs Temperature 97.1 F L 08/20/20 09:53 Pulse Rate 72 08/20/20 09:53 Respiratory Rate 18 08/20/20 09:53 Blood Pressure 125/91 08/20/20 09:53 O2 Sat by Pulse Oximetry (%) 99 08/20/20 09:53 Elevated b/p: denies htn, most likely anxiety related, follow up with PCP for monitoring Pertinent Admission Physical Exam Findings: Withdrawal sxs Laboratory Tests 08/18/20 08/19/20 08/19/20 17:15 07:45 07:45 WBC 4.2 RBC 5.18 Hgb 14.0 Hct 43.0 MCV 83.0 MCH 27.1 MCHC 32.6 RDW 15.4 Plt Count 236 MPV 7.9 Sodium Potassium Chloride Carbon Dioxide Anion Gap BUN Creatinine Est GFR (CKD-EPI)AfAm Est GFR (CKD-EPI)NonAf Random Glucose Calcium Total Bilirubin AST ALT Alkaline Phosphatase Total Protein Albumin Syphilis Serology Non-reactive COVID-19 ([facility]) Not detected 08/19/20 07:45 WBC RBC Hgb Hct MCV MCH MCHC RDW Plt Count MPV Sodium 136 Potassium 4.1 Chloride 104 Carbon Dioxide 28 Anion Gap 4 L BUN 10.3 Creatinine 0.9 Est GFR (CKD-EPI)AfAm 108.73 Est GFR (CKD-EPI)NonAf 93.82 Random Glucose 81 Calcium 8.8 Total Bilirubin 0.6 AST 51 H ALT 57 Alkaline Phosphatase 59 Total Protein 8.2 Albumin 3.4 Syphilis Serology COVID-19 (JOSE [facility]GEL) Labs reviewed: AST mildly elevated (most likely from alcoholism and HCV, follow up with PCP for monitoring) - Medication Discharge Medications: Ambulatory Orders NK [No Known Home Medication] 11/06/19 - Diagnosis (1) Sedative, hypnotic or anxiolytic dependence with withdrawal, uncomplicated Current Visit: Yes Status: Acute (2) History of TB (tuberculosis) Current Visit: Yes Status: Resolved (3) Synthetic cannabinoid dependence Current Visit: Yes Status: Chronic (4) Nicotine dependence Current Visit: Yes Status: Chronic (5) Alcohol related seizure Current Visit: Yes Status: Acute (6) Alcohol dependence with uncomplicated withdrawal Current Visit: Yes Status: Acute (7) Cannabis dependence Current Visit: Yes Status: Chronic (8) HIV (human immunodeficiency virus infection) Current Visit: Yes Status: Chronic Qualifiers: HIV symptom status: asymptomatic Qualified Code(s): Z21 - Asymptomatic human immunodeficiency virus [HIV] infection status (9) Hepatitis C Current Visit: Yes Status: Chronic Qualifiers: Viral hepatitis chronicity: chronic Hepatic coma status: without hepatic coma Qualified Code(s): B18.2 - Chronic viral hepatitis C (10) Transaminitis Current Visit: Yes Status: Acute (11) Elevated blood-pressure reading, without diagnosis of hypertension Current Visit: Yes Status: Acute - AMA Did Patient Leave Against Medical Advice: Yes (Instructed to call [phone] [phone] if sick/withdrawal sxs)
[2020-08-21] MEDS ORDERED: LORazepam 0.5 MG TABLET PO PRN
[2020-08-21] MEDS ORDERED: LORazepam 0.5 MG TABLET PO SCH (05:00)
[2020-08-22] MEDS ORDERED: LORazepam 0.5 MG TABLET PO ONE (05:00)
== END 2020-08-20 11:45 | disposition left against medical advice (07) | DRG 770 ==
LOC: YASAS 13:27 → Y6N 17:02
PROVIDERS: ADMIT Allergy & Immunology; ATTEND Allergy & Immunology
PROC: HZ2ZZZZ Detoxification Services for Substance Abuse Treatment (ICD-10-PCS; principal; 2020-08-18)
DX: F10.230 Alcohol dependence with withdrawal, uncomplicated (principal); F13.230 Sedative, hypnotic or anxiolytic dependence with withdrawal, uncomplicated; F12.20 Cannabis dependence, uncomplicated; F19.20 Other psychoactive substance dependence, uncomplicated; F17.211 Nicotine dependence, cigarettes, in remission; Z21 Asymptomatic human immunodeficiency virus [HIV] infection status; G40.509 Epileptic seizures related to external causes, not intractable, without status epilepticus; B18.2 Chronic viral hepatitis C; R74.0 Nonspecific elevation of levels of transaminase and lactic acid dehydrogenase [LDH]; R03.0 Elevated blood-pressure reading, without diagnosis of hypertension; Z86.11 Personal history of tuberculosis
CPT/HCPCS: 36415; 80053; 85027; 86780; 93005; 93010; U0003

== ENCOUNTER 2021-05-15 12:27 | Inpatient (IN) | payer OTHER ==
[2021-05-15 13:52] VITALS: BMI 20.3
[2021-05-15] MEDS ORDERED: ACETAMINOPHEN 325 MG TABLET (FP) PO PRN ×2 (14:58)
[2021-05-15] MEDS ORDERED: MAGNESIUM HYDROX 2400MG/30ML ORAL SUSPENSION 30 ML CUP PO PRN (14:58)
[2021-05-15] MEDS ORDERED: MENTHOL/PHENOL 1 EACH UD MM PRN (14:58)
[2021-05-15] MEDS ORDERED: ONDANSETRON *ODT* 4 MG TABLET SL PRN (14:58)
[2021-05-15] MEDS ORDERED: IBUPROFEN 400 MG TABLET (FP) PO PRN (14:58)
[2021-05-15] MEDS ORDERED: MAG HYDROX/AL HYDROX/SIMETH 30 ML UNIT-DOSE CUP PO PRN (14:58)
[2021-05-15] MEDS ORDERED: BISMUTH SUBSALICYLATE 262 MG/15 ML BTL PO PRN (14:58)
[2021-05-15] MEDS ORDERED: METHOCARBAMOL 500 MG TABLET PO PRN (14:58)
[2021-05-15] MEDS ORDERED: MAGNESIUM CITRATE 300 ML BOTTLE PO PRN (14:58)
[2021-05-15] MEDS: diazePAM 5 MG TABLET PO PRN (15:58)
[2021-05-15] MEDS: diazePAM 5 MG TABLET PO SCH ×3 (16:01→22:34)
[2021-05-15] MEDS: PRENATAL VITAMINS W/ FOLIC ACID TABLET (FP) PO SCH (16:02)
[2021-05-15] MEDS: hydrOXYzine PAMOATE 25 MG CAPSULE (FP) PO SCH ×2 (17:05→22:35)
[2021-05-15] MEDS: THIAMINE HCL 100 MG TABLET (FP) PO SCH (22:34)
[2021-05-15] MEDS: MELATONIN 5 MG TABLETS PO SCH (22:35)
[2021-05-16] MEDS: diazePAM 5 MG TABLET PO SCH ×4 (07:33→22:44)
[2021-05-16] MEDS: hydrOXYzine PAMOATE 25 MG CAPSULE (FP) PO SCH ×5 (07:33→22:44)
[2021-05-16 10:08] LABS: HEMATOCRIT 40.9 % (35.4-49); HEMOGLOBIN 13.3 GM/dL (11.7-16.9); MCH 27.2 pg (25.7-33.7); MCHC 32.6 g/dl (32.0-35.9); MEAN CELL VOLUME 83.5 fl (80-96); MEAN PLT VOLUME 7.9 fl (7.5-11.1); PLATELET COUNT 293 10^3/uL (134-434); RDW 16.6 % (11.9-15.9); WHITE BLOOD COUNT 4.9 K/mm3 (4.0-10.0)
[2021-05-16 10:13] LABS: CALCIUM 9.3 mg/dL (8.5-10.1)
[2021-05-16 10:14] LABS: ALBUMIN 3.8 g/dl (3.4-5.0); BLOOD UREA NITROGEN 11.6 mg/dL (7-18)
[2021-05-16 10:17] LABS: CREATININE 0.9 mg/dL (0.55-1.3)
[2021-05-16 10:19] LABS: BILIRUBIN,TOTAL 0.7 mg/dL (0.2-1); TOT PROT 8.3 g/dl (6.4-8.2)
[2021-05-16] MEDS: diazePAM 5 MG TABLET PO ONE (10:40)
[2021-05-16] MEDS: PRENATAL VITAMINS W/ FOLIC ACID TABLET (FP) PO SCH (10:41)
[2021-05-16] MEDS: MELATONIN 5 MG TABLETS PO SCH (22:44)
[2021-05-16] MEDS: THIAMINE HCL 100 MG TABLET (FP) PO SCH (22:44)
[2021-05-17] MEDS: hydrOXYzine PAMOATE 25 MG CAPSULE (FP) PO SCH ×5 (06:12→22:32)
[2021-05-17] MEDS: diazePAM 5 MG TABLET PO SCH ×3 (06:13→22:32)
[2021-05-17] MEDS: PRENATAL VITAMINS W/ FOLIC ACID TABLET (FP) PO SCH (10:50)
[2021-05-17] MEDS: diazePAM 5 MG TABLET PO PRN (10:52)
[2021-05-17] MEDS: MELATONIN 5 MG TABLETS PO SCH (22:32)
[2021-05-17] MEDS: THIAMINE HCL 100 MG TABLET (FP) PO SCH (22:32)
[2021-05-18] MEDS: diazePAM 5 MG TABLET PO SCH ×2 (06:19→18:08)
[2021-05-18] MEDS: hydrOXYzine PAMOATE 25 MG CAPSULE (FP) PO SCH ×5 (06:19→22:41)
[2021-05-18] MEDS: PRENATAL VITAMINS W/ FOLIC ACID TABLET (FP) PO SCH (10:30)
[2021-05-18] MEDS: MELATONIN 5 MG TABLETS PO SCH (22:42)
[2021-05-18] MEDS: THIAMINE HCL 100 MG TABLET (FP) PO SCH (22:42)
[2021-05-19] MEDS: diazePAM 5 MG TABLET PO ONE (06:31)
[2021-05-19] MEDS: hydrOXYzine PAMOATE 25 MG CAPSULE (FP) PO SCH ×2 (06:32→11:22)
[2021-05-19 07:15] VITALS: TEMP 96.9
[2021-05-19 09:29] VITALS: BP 120/84; PULSE 83
[2021-05-19] MEDS: PRENATAL VITAMINS W/ FOLIC ACID TABLET (FP) PO SCH (11:22)
== END 2021-05-19 10:02 | disposition home or self-care (01) | DRG 775 ==
LOC: YASAS 12:27 → Y3N 15:17
PROVIDERS: ADMIT Allergy & Immunology; ATTEND Allergy & Immunology
PROC: HZ2ZZZZ Detoxification Services for Substance Abuse Treatment (ICD-10-PCS; principal; 2021-05-15)
DX: F10.230 Alcohol dependence with withdrawal, uncomplicated (principal); F13.20 Sedative, hypnotic or anxiolytic dependence, uncomplicated; F16.20 Hallucinogen dependence, uncomplicated; F19.20 Other psychoactive substance dependence, uncomplicated; Z21 Asymptomatic human immunodeficiency virus [HIV] infection status; K21.9 Gastro-esophageal reflux disease without esophagitis; Z87.891 Personal history of nicotine dependence
CPT/HCPCS: 36415; 71046-TC-FY; 80053; 85027; 86780; C9803; U0003; U0005

== ENCOUNTER 2021-07-03 13:58 | Inpatient (IN) | payer OTHER ==
[2021-07-03 16:03] VITALS: BMI 20.8
[2021-07-03] MEDS ORDERED: ACETAMINOPHEN 325 MG TABLET (FP) PO PRN (18:29)
[2021-07-03] MEDS ORDERED: LOPERAMIDE HCL 2 MG CAPSULE PO PRN (18:29)
[2021-07-03] MEDS ORDERED: MAGNESIUM CITRATE 300 ML BOTTLE PO PRN (18:29)
[2021-07-03] MEDS ORDERED: MAG HYDROX/AL HYDROX/SIMETH 30 ML UNIT-DOSE CUP PO PRN (18:29)
[2021-07-03] MEDS ORDERED: P-EPHED 60MG/TRIPROLIDI 2.5MG TABLET PO PRN (18:29)
[2021-07-03] MEDS ORDERED: guaiFENesin 200 MG/10 ML 10 ML UNIT-DOSE CUPS PO PRN (18:29)
[2021-07-03] MEDS ORDERED: MAGNESIUM HYDROX 2400MG/30ML ORAL SUSPENSION 30 ML CUP PO PRN (18:29)
[2021-07-03] MEDS ORDERED: IBUPROFEN 400 MG TABLET (FP) PO PRN (18:29)
[2021-07-03] MEDS: THIAMINE HCL 100 MG TABLET (FP) PO SCH (21:53)
[2021-07-03] MEDS: MELATONIN 5 MG TABLETS PO SCH (21:53)
[2021-07-04] MEDS: PRENATAL VITAMINS W/ FOLIC ACID TABLET (FP) PO SCH (10:21)
[2021-07-04 13:26] LABS: URINE APPEARANCE CLEAR; URINE BILIRUBIN NEGATIVE (NEGATIVE); URINE COLOR YELLOW; URINE GLUCOSE (UA) NEGATIVE (NEGATIVE); URINE KETONE NEGATIVE (NEGATIVE); URINE LEUK ESTERASE NEGATIVE (NEGATIVE); URINE NITRITE NEGATIVE (NEGATIVE); URINE PROTEIN NEGATIVE (NEGATIVE); URINE UROBILINOGEN 0.2 mg/dL (0.2-1.0)
[2021-07-04] MEDS: MELATONIN 5 MG TABLETS PO SCH (21:40)
[2021-07-04] MEDS: THIAMINE HCL 100 MG TABLET (FP) PO SCH (21:40)
[2021-07-05 06:59] VITALS: BP 130/84; PULSE 73; TEMP 97.3
[2021-07-05] MEDS: PRENATAL VITAMINS W/ FOLIC ACID TABLET (FP) PO SCH (09:47)
[2021-07-05] MEDS: MELATONIN 5 MG TABLETS PO SCH (21:53)
[2021-07-05] MEDS: THIAMINE HCL 100 MG TABLET (FP) PO SCH (21:54)
== END 2021-07-05 22:10 | disposition left against medical advice (07) | DRG 770 ==
LOC: YASAS 13:58 → Y3E 17:09
PROVIDERS: ADMIT Allergy & Immunology; ATTEND Allergy & Immunology
PROC: HZ42ZZZ Group Counseling for Substance Abuse Treatment, Cognitive-Behavioral (ICD-10-PCS; principal; 2021-07-03)
DX: F10.20 Alcohol dependence, uncomplicated (principal); F14.20 Cocaine dependence, uncomplicated; F12.20 Cannabis dependence, uncomplicated; F16.20 Hallucinogen dependence, uncomplicated; F17.210 Nicotine dependence, cigarettes, uncomplicated; Z21 Asymptomatic human immunodeficiency virus [HIV] infection status; B18.2 Chronic viral hepatitis C
CPT/HCPCS: 81003; C9803; U0003; U0005

== ENCOUNTER 2021-08-27 11:58 | Inpatient (IN) | payer OTHER ==
[2021-08-27 12:37] VITALS: BMI 21.2
[2021-08-27] MEDS ORDERED: MAGNESIUM CITRATE 300 ML BOTTLE PO PRN (13:09)
[2021-08-27] MEDS ORDERED: MAGNESIUM HYDROX 2400MG/30ML ORAL SUSPENSION 30 ML CUP PO PRN (13:09)
[2021-08-27] MEDS ORDERED: diazePAM 5 MG TABLET PO PRN (13:09)
[2021-08-27] MEDS ORDERED: ACETAMINOPHEN 325 MG TABLET (FP) PO PRN ×2 (13:09)
[2021-08-27] MEDS ORDERED: METHOCARBAMOL 500 MG TABLET PO PRN (13:09)
[2021-08-27] MEDS ORDERED: NICOTINE 10 MG CARTRIDGE (INHALER) IH PRN (13:09)
[2021-08-27] MEDS ORDERED: MENTHOL/PHENOL 1 EACH UD MM PRN (13:09)
[2021-08-27] MEDS ORDERED: ONDANSETRON *ODT* 4 MG TABLET SL PRN (13:09)
[2021-08-27] MEDS ORDERED: MAG HYDROX/AL HYDROX/SIMETH 30 ML UNIT-DOSE CUP PO PRN (13:09)
[2021-08-27] MEDS ORDERED: IBUPROFEN 400 MG TABLET (FP) PO PRN (13:09)
[2021-08-27] MEDS ORDERED: BISMUTH SUBSALICYLATE 524 MG/30 ML PO PRN (13:09)
[2021-08-27] MEDS: hydrOXYzine PAMOATE 25 MG CAPSULE (FP) PO SCH ×3 (14:16→22:44)
[2021-08-27] MEDS: PRENATAL VITAMINS W/ FOLIC ACID TABLET (FP) PO SCH (14:16)
[2021-08-27] MEDS: NICOTINE 7 MG/24 HOURS TOPICAL PATCH TD SCH (14:16)
[2021-08-27 17:54] LABS: CALCIUM 8.9 mg/dL (8.5-10.1)
[2021-08-27 17:55] LABS: ALBUMIN 3.3 g/dl (3.4-5.0); BLOOD UREA NITROGEN 6.5 mg/dL (7-18)
[2021-08-27 17:57] LABS: HEMATOCRIT 40.6 % (35.4-49); HEMOGLOBIN 13.1 GM/dL (11.7-16.9); MCH 27.1 pg (25.7-33.7); MCHC 32.4 g/dl (32.0-35.9); MEAN CELL VOLUME 83.6 fl (80-96); MEAN PLT VOLUME 8.3 fl (7.5-11.1); PLATELET COUNT 258 10^3/uL (134-434); RBC 4.85 M/mm3 (4.00-5.60); RDW 17.5 % (11.9-15.9); WHITE BLOOD COUNT 4.7 K/mm3 (4.0-10.0)
[2021-08-27 17:58] LABS: CREATININE 0.8 mg/dL (0.55-1.3)
[2021-08-27 17:59] LABS: BILIRUBIN,TOTAL 0.6 mg/dL (0.2-1); TOT PROT 7.5 g/dl (6.4-8.2)
[2021-08-27] MEDS: diazePAM 5 MG TABLET PO SCH ×2 (18:30→22:51)
[2021-08-27] MEDS: MELATONIN 5 MG TABLETS PO SCH (22:43)
[2021-08-27] MEDS: THIAMINE HCL 100 MG TABLET (FP) PO SCH (22:49)
[2021-08-28] MEDS: hydrOXYzine PAMOATE 25 MG CAPSULE (FP) PO SCH ×5 (05:55→22:44)
[2021-08-28] MEDS: diazePAM 5 MG TABLET PO SCH ×4 (05:56→22:45)
[2021-08-28] MEDS: PRENATAL VITAMINS W/ FOLIC ACID TABLET (FP) PO SCH (10:58)
[2021-08-28] MEDS: NICOTINE 7 MG/24 HOURS TOPICAL PATCH TD SCH (11:06)
[2021-08-28] MEDS: MELATONIN 5 MG TABLETS PO SCH (22:44)
[2021-08-28] MEDS: THIAMINE HCL 100 MG TABLET (FP) PO SCH (22:45)
[2021-08-29] MEDS: diazePAM 5 MG TABLET PO SCH ×4 (06:00→22:53)
[2021-08-29] MEDS: hydrOXYzine PAMOATE 25 MG CAPSULE (FP) PO SCH ×6 (06:01→22:53)
[2021-08-29] MEDS: PRENATAL VITAMINS W/ FOLIC ACID TABLET (FP) PO SCH (10:55)
[2021-08-29] MEDS: NICOTINE 7 MG/24 HOURS TOPICAL PATCH TD SCH (11:04)
[2021-08-29] MEDS: THIAMINE HCL 100 MG TABLET (FP) PO SCH (22:53)
[2021-08-29] MEDS: MELATONIN 5 MG TABLETS PO SCH (22:53)
[2021-08-30] MEDS: diazePAM 5 MG TABLET PO SCH ×3 (06:50→18:47)
[2021-08-30] MEDS: hydrOXYzine PAMOATE 25 MG CAPSULE (FP) PO SCH ×5 (06:51→18:46)
[2021-08-30] MEDS: NICOTINE 7 MG/24 HOURS TOPICAL PATCH TD SCH (10:38)
[2021-08-30] MEDS: PRENATAL VITAMINS W/ FOLIC ACID TABLET (FP) PO SCH (10:38)
[2021-08-30 17:05] VITALS: BP 129/86; PULSE 69; TEMP 97.3
[2021-08-31] MEDS ORDERED: diazePAM 5 MG TABLET PO ONE (06:00)
== END 2021-08-30 18:38 | disposition left against medical advice (07) | DRG 770 ==
LOC: YASAS 11:58 → Y6N 13:53
PROVIDERS: ADMIT Allergy & Immunology; ATTEND Allergy & Immunology
PROC: HZ2ZZZZ Detoxification Services for Substance Abuse Treatment (ICD-10-PCS; principal; 2021-08-27)
DX: F10.230 Alcohol dependence with withdrawal, uncomplicated (principal); F13.230 Sedative, hypnotic or anxiolytic dependence with withdrawal, uncomplicated; F17.210 Nicotine dependence, cigarettes, uncomplicated; U07.1 COVID-19; Z21 Asymptomatic human immunodeficiency virus [HIV] infection status; K21.9 Gastro-esophageal reflux disease without esophagitis; B18.2 Chronic viral hepatitis C
CPT/HCPCS: 36415; 80053; 85027; 86780; C9803; U0003; U0005

== ENCOUNTER 2022-06-28 09:37 | Inpatient (IN) | payer OTHER ==
[2022-06-28 10:18] VITALS: BMI 21.2
[2022-06-28] MEDS ORDERED: METHOCARBAMOL 500 MG TABLET PO PRN (11:21)
[2022-06-28] MEDS ORDERED: BENZOCAINE/MENTHOL (CHLORASEPTIC ) LOZENGE MM PRN (11:21)
[2022-06-28] MEDS ORDERED: ACETAMINOPHEN 325 MG TABLET (FP) PO PRN ×2 (11:21)
[2022-06-28] MEDS ORDERED: IBUPROFEN 600 MG TABLET (FP) PO PRN (11:21)
[2022-06-28] MEDS ORDERED: DICYCLOMINE HCL 10 MG CAPSULE PO PRN (11:21)
[2022-06-28] MEDS ORDERED: NICOTINE 10 MG CARTRIDGE (INHALER) IH PRN (11:21)
[2022-06-28] MEDS ORDERED: BISMUTH SUBSALICYLATE 262 MG/15 ML BTL PO PRN (11:21)
[2022-06-28] MEDS ORDERED: chlordiazePOXIDE HCL 25 MG CAPSULE PO PRN (11:21)
[2022-06-28] MEDS ORDERED: LOPERAMIDE HCL 2 MG CAPSULE PO PRN (11:21)
[2022-06-28] MEDS ORDERED: MAG HYDROX/AL HYDROX/SIMETH 30 ML UNIT-DOSE CUP PO PRN (11:21)
[2022-06-28] MEDS ORDERED: MAGNESIUM HYDROX 2400MG/30ML ORAL SUSPENSION 30 ML CUP PO PRN (11:21)
[2022-06-28] MEDS ORDERED: MAGNESIUM CITRATE 300 ML BOTTLE PO PRN (11:21)
[2022-06-28] MEDS ORDERED: ONDANSETRON *ODT* 4 MG TABLET SL PRN (11:21)
[2022-06-28] MEDS ORDERED: IBUPROFEN 400 MG TABLET (FP) PO PRN (11:21)
[2022-06-28] MEDS: PRENATAL VITAMINS W/ FOLIC ACID TABLET (FP) PO SCH (12:58)
[2022-06-28] MEDS: hydrOXYzine PAMOATE 25 MG CAPSULE (FP) PO SCH ×3 (13:05→22:41)
[2022-06-28 17:12] LABS: ALBUMIN 3.7 g/dl (3.4-5.0); CALCIUM 8.7 mg/dL (8.5-10.1)
[2022-06-28 17:15] LABS: HEMATOCRIT 43.6 % (35.4-49); HEMOGLOBIN 13.9 GM/dL (11.7-16.9); MCH 27.8 pg (25.7-33.7); MCHC 31.9 g/dl (32.0-35.9); MEAN CELL VOLUME 87.1 fl (80-96); MEAN PLT VOLUME 8.3 fl (7.5-11.1); PLATELET COUNT 223 10^3/uL (134-434); RDW 15.8 % (11.9-15.9); WHITE BLOOD COUNT 4.1 K/mm3 (4.0-10.0)
[2022-06-28 17:16] LABS: CREATININE 0.8 mg/dL (0.55-1.3)
[2022-06-28 17:17] LABS: BILIRUBIN,TOTAL 0.4 mg/dL (0.2-1)
[2022-06-28] MEDS: chlordiazePOXIDE HCL 25 MG CAPSULE PO SCH ×2 (17:55→22:41)
[2022-06-28] MEDS: THIAMINE HCL 100 MG TABLET (FP) PO SCH (22:41)
[2022-06-28] MEDS: MELATONIN 5 MG TABLETS PO SCH (22:42)
[2022-06-29] MEDS: chlordiazePOXIDE HCL 25 MG CAPSULE PO SCH ×3 (05:58→18:14)
[2022-06-29] MEDS: hydrOXYzine PAMOATE 25 MG CAPSULE (FP) PO SCH ×5 (07:17→22:27)
[2022-06-29] MEDS: PRENATAL VITAMINS W/ FOLIC ACID TABLET (FP) PO SCH (10:25)
[2022-06-29] MEDS: MELATONIN 5 MG TABLETS PO SCH (22:27)
[2022-06-29] MEDS: THIAMINE HCL 100 MG TABLET (FP) PO SCH (22:27)
[2022-06-30] MEDS: chlordiazePOXIDE HCL 25 MG CAPSULE PO SCH ×5 (04:57→22:21)
[2022-06-30] MEDS: hydrOXYzine PAMOATE 25 MG CAPSULE (FP) PO SCH ×5 (05:46→22:21)
[2022-06-30] MEDS: PRENATAL VITAMINS W/ FOLIC ACID TABLET (FP) PO SCH (11:22)
[2022-06-30] MEDS: THIAMINE HCL 100 MG TABLET (FP) PO SCH (22:20)
[2022-06-30] MEDS: MELATONIN 5 MG TABLETS PO SCH (22:20)
[2022-07-01] MEDS ORDERED: chlordiazePOXIDE HCL 10 MG CAPSULE PO PRN
[2022-07-01] MEDS ORDERED: chlordiazePOXIDE HCL 10 MG CAPSULE PO SCH (05:00)
[2022-07-01] MEDS: hydrOXYzine PAMOATE 25 MG CAPSULE (FP) PO SCH (05:07)
[2022-07-01 06:08] VITALS: RESP 18
[2022-07-01 09:00] VITALS: BP 104/61; PULSE 89; TEMP 96.9
[2022-07-02] MEDS ORDERED: chlordiazePOXIDE HCL 10 MG CAPSULE PO SCH (05:00)
[2022-07-03] MEDS ORDERED: chlordiazePOXIDE HCL 10 MG CAPSULE PO ONE (05:00)
== END 2022-07-01 09:08 | disposition home or self-care (01) | DRG 774 ==
LOC: SUATTDRO 09:37 → YASAS 09:37 → Y3N 12:18
PROVIDERS: ADMIT Allergy & Immunology; ATTEND Surgery
PROC: HZ2ZZZZ Detoxification Services for Substance Abuse Treatment (ICD-10-PCS; principal; 2022-06-28)
DX: F10.230 Alcohol dependence with withdrawal, uncomplicated (principal); F14.20 Cocaine dependence, uncomplicated; F17.210 Nicotine dependence, cigarettes, uncomplicated; Z21 Asymptomatic human immunodeficiency virus [HIV] infection status; B18.2 Chronic viral hepatitis C; Z86.69 Personal history of other diseases of the nervous system and sense organs; Z86.11 Personal history of tuberculosis
CPT/HCPCS: 36415; 71045-TC-FY; 80053; 85027; 86780; 87811; C9803-CS; U0003; U0005

== ENCOUNTER 2023-05-22 10:10 | Inpatient (IN) | payer OTHER ==
[2023-05-22 10:30] VITALS: BMI 20.7
[2023-05-22] MEDS ORDERED: METHOCARBAMOL 500 MG TABLET PO PRN (10:58)
[2023-05-22] MEDS ORDERED: NALOXONE HCL 0.4 MG/ML VIAL IM PRN (10:58)
[2023-05-22] MEDS ORDERED: ACETAMINOPHEN 325 MG TABLET (FP) PO PRN (10:58)
[2023-05-22] MEDS ORDERED: guaiFENesin 600 MG TABLET.ER (FP) PO PRN (10:58)
[2023-05-22] MEDS ORDERED: POLYETHYLENE GLYCOL (HEALTHYLAX) 3350 17 GM PACKET PO PRN (10:58)
[2023-05-22] MEDS ORDERED: MAG HYDROX/AL HYDROX/SIMETH 30 ML UNIT-DOSE CUP PO PRN (10:58)
[2023-05-22] MEDS ORDERED: MAGNESIUM HYDROX 2400MG/30ML ORAL SUSPENSION 30 ML CUP PO PRN (10:58)
[2023-05-22] MEDS ORDERED: NALOXONE HCL (KLOXXADO) 8 MG SPRAY NS PRN (10:58)
[2023-05-22] MEDS ORDERED: IBUPROFEN 600 MG TABLET (FP) PO PRN (10:58)
[2023-05-22] MEDS ORDERED: BENZOCAINE/MENTHOL (CHLORASEPTIC ) LOZENGE MM PRN (10:58)
[2023-05-22] MEDS ORDERED: hydrOXYzine PAMOATE 25 MG CAPSULE (FP) PO PRN (10:58)
[2023-05-22] MEDS ORDERED: ONDANSETRON *ODT* 4 MG TABLET SL PRN (10:58)
[2023-05-22] MEDS ORDERED: LOPERAMIDE HCL 2 MG CAPSULE PO PRN (10:58)
[2023-05-22] MEDS ORDERED: IBUPROFEN 400 MG TABLET (FP) PO PRN (10:58)
[2023-05-22] MEDS ORDERED: BISMUTH SUBSALICYLATE 262 MG/15 ML BTL PO PRN (10:58)
[2023-05-22] MEDS ORDERED: BICTEGRAV/EMTRICIT/TENOFOV (BIKTARVY) 50-200-25 MG TABLET PO SCH (16:30)
[2023-05-22] MEDS: BICTEGRAV/EMTRICIT/TENOFOV (BIKTARVY) 50-200-25 MG TABLET PO SCH (17:32)
[2023-05-22] MEDS: MELATONIN 5 MG TABLETS PO SCH (22:18)
[2023-05-22] MEDS: THIAMINE HCL 100 MG TABLET (FP) PO SCH (22:18)
[2023-05-23] MEDS: BICTEGRAV/EMTRICIT/TENOFOV (BIKTARVY) 50-200-25 MG TABLET PO SCH (08:01)
[2023-05-23] MEDS: PRENATAL VITAMINS W/ FOLIC ACID TABLET (FP) PO SCH (10:03)
[2023-05-23 10:58] LABS: POTASSIUM 3.9 mmol/L (3.5-5.1)
[2023-05-23 10:59] LABS: HEMATOCRIT 40.8 % (35.4-49); MCH 27.4 pg (25.7-33.7); MCHC 31.8 g/dl (32.0-35.9); MEAN CELL VOLUME 86.1 fl (80-96); MEAN PLT VOLUME 8.3 fl (7.5-11.1); PLATELET COUNT 321 10^3/uL (134-434); RBC 4.74 M/mm3 (4.00-5.60); WHITE BLOOD COUNT 4.6 K/mm3 (4.0-10.0)
[2023-05-23 11:06] LABS: CALCIUM 9.3 mg/dL (8.5-10.1)
[2023-05-23 11:07] LABS: ALBUMIN 3.2 g/dl (3.4-5.0); BLOOD UREA NITROGEN 10.9 mg/dL (7-18)
[2023-05-23 11:10] LABS: CREATININE 0.8 mg/dL (0.55-1.3)
[2023-05-23 11:11] LABS: BILIRUBIN,TOTAL 0.5 mg/dL (0.2-1); TOT PROT 7.3 g/dl (6.4-8.2)
[2023-05-23] MEDS: THIAMINE HCL 100 MG TABLET (FP) PO SCH (22:35)
[2023-05-23] MEDS: MELATONIN 5 MG TABLETS PO SCH (22:35)
[2023-05-24] MEDS: BICTEGRAV/EMTRICIT/TENOFOV (BIKTARVY) 50-200-25 MG TABLET PO SCH (07:04)
[2023-05-24] MEDS ORDERED: chlordiazePOXIDE HCL 25 MG CAPSULE PO PRN (09:47)
[2023-05-24] MEDS: chlordiazePOXIDE HCL 25 MG CAPSULE PO SCH ×3 (10:41→22:50)
[2023-05-24] MEDS: PRENATAL VITAMINS W/ FOLIC ACID TABLET (FP) PO SCH (10:42)
[2023-05-24] MEDS: MELATONIN 5 MG TABLETS PO SCH (22:50)
[2023-05-24] MEDS: THIAMINE HCL 100 MG TABLET (FP) PO SCH (22:50)
[2023-05-25] MEDS: chlordiazePOXIDE HCL 10 MG CAPSULE PO SCH ×4 (05:42→22:24)
[2023-05-25] MEDS: BICTEGRAV/EMTRICIT/TENOFOV (BIKTARVY) 50-200-25 MG TABLET PO SCH (07:09)
[2023-05-25] MEDS: PRENATAL VITAMINS W/ FOLIC ACID TABLET (FP) PO SCH (10:05)
[2023-05-25] MEDS: THIAMINE HCL 100 MG TABLET (FP) PO SCH (22:24)
[2023-05-25] MEDS: MELATONIN 5 MG TABLETS PO SCH (22:24)
[2023-05-26] MEDS ORDERED: chlordiazePOXIDE HCL 10 MG CAPSULE PO SCH (05:00)
[2023-05-26] MEDS: BICTEGRAV/EMTRICIT/TENOFOV (BIKTARVY) 50-200-25 MG TABLET PO SCH (07:26)
[2023-05-26 09:40] VITALS: BP 104/66; PULSE 69; RESP 18; TEMP 97.5
[2023-05-26] MEDS: PRENATAL VITAMINS W/ FOLIC ACID TABLET (FP) PO SCH (10:11)
[2023-05-27] MEDS ORDERED: chlordiazePOXIDE HCL 10 MG CAPSULE PO PRN
[2023-05-27] MEDS ORDERED: chlordiazePOXIDE HCL 10 MG CAPSULE PO ONE (05:00)
== END 2023-05-26 10:34 | disposition left against medical advice (07) | DRG 770 ==
LOC: YASAS 10:10 → UNDOADMIN 12:26 → Y3N 12:26
PROVIDERS: ADMIT Allergy & Immunology; ATTEND Surgery
PROC: HZ2ZZZZ Detoxification Services for Substance Abuse Treatment (ICD-10-PCS; principal; 2023-05-22)
DX: F10.230 Alcohol dependence with withdrawal, uncomplicated (principal); F14.20 Cocaine dependence, uncomplicated; F12.20 Cannabis dependence, uncomplicated; F17.210 Nicotine dependence, cigarettes, uncomplicated; Z21 Asymptomatic human immunodeficiency virus [HIV] infection status; Z86.19 Personal history of other infectious and parasitic diseases
CPT/HCPCS: 36415; 71046-TC-FY; 80053; 85027; 86780; 87635; 87811

== ENCOUNTER 2023-10-02 13:47 | Inpatient (IN) | payer OTHER ==
[2023-10-02 14:53] VITALS: BMI 23.4
[2023-10-02] MEDS ORDERED: guaiFENesin 600 MG TABLET.ER (FP) PO PRN (18:07)
[2023-10-02] MEDS ORDERED: BISMUTH SUBSALICYLATE 524 MG/30 ML PO PRN (18:07)
[2023-10-02] MEDS ORDERED: BENZOCAINE/MENTHOL (CHLORASEPTIC ) LOZENGE MM PRN (18:07)
[2023-10-02] MEDS ORDERED: MAG HYDROX/AL HYDROX/SIMETH 30 ML UNIT-DOSE CUP PO PRN (18:07)
[2023-10-02] MEDS ORDERED: BENZONATATE 200 MG CAPSULE PO PRN (18:07)
[2023-10-02] MEDS ORDERED: ONDANSETRON *ODT* 4 MG TABLET SL PRN (18:07)
[2023-10-02] MEDS ORDERED: ACETAMINOPHEN 325 MG TABLET (FP) PO PRN (18:07)
[2023-10-02] MEDS ORDERED: DICYCLOMINE HCL 10 MG CAPSULE PO PRN (18:07)
[2023-10-02] MEDS ORDERED: NALOXONE HCL (KLOXXADO) 8 MG SPRAY NS PRN (18:07)
[2023-10-02] MEDS ORDERED: LORazepam 1 MG TABLET PO PRN (18:07)
[2023-10-02] MEDS ORDERED: NALOXONE HCL 0.4 MG/ML VIAL IM PRN (18:07)
[2023-10-02] MEDS ORDERED: MAGNESIUM HYDROX 2400MG/30ML ORAL SUSPENSION 30 ML CUP PO PRN (18:07)
[2023-10-02] MEDS ORDERED: IBUPROFEN 400 MG TABLET (FP) PO PRN (18:07)
[2023-10-02] MEDS ORDERED: POLYETHYLENE GLYCOL (HEALTHYLAX) 3350 17 GM PACKET PO PRN (18:07)
[2023-10-02] MEDS ORDERED: LOPERAMIDE HCL 2 MG CAPSULE PO PRN (18:07)
[2023-10-02] MEDS ORDERED: IBUPROFEN 600 MG TABLET (FP) PO PRN (18:07)
[2023-10-02] MEDS: PRENATAL VITAMINS W/ FOLIC ACID TABLET (FP) PO SCH ×2 (19:55→23:09)
[2023-10-02] MEDS ORDERED: MELATONIN 5 MG TABLETS PO SCH (22:00)
[2023-10-02] MEDS: LORazepam 2 MG TABLET PO SCH ×3 (23:06→23:10)
[2023-10-02] MEDS: THIAMINE HCL 100 MG TABLET (FP) PO SCH (23:08)
[2023-10-03] MEDS: LORazepam 2 MG TABLET PO SCH ×5 (05:45→22:17)
[2023-10-03] MEDS: BICTEGRAV/EMTRICIT/TENOFOV (BIKTARVY) 50-200-25 MG TABLET PO SCH (08:03)
[2023-10-03] MEDS: risperiDONE 1 MG TABLET PO SCH ×2 (10:19→22:17)
[2023-10-03] MEDS: PRENATAL VITAMINS W/ FOLIC ACID TABLET (FP) PO SCH (10:19)
[2023-10-03 10:46] LABS: HEMATOCRIT 39.9 % (35.4-49); HEMOGLOBIN 12.6 GM/dL (11.7-16.9); MCH 26.6 pg (25.7-33.7); MCHC 31.6 g/dl (32.0-35.9); MEAN CELL VOLUME 83.9 fl (80-96); MEAN PLT VOLUME 7.8 fl (7.5-11.1); PLATELET COUNT 304 10^3/uL (134-434); RBC 4.75 M/mm3 (4.00-5.60); RDW 18.1 % (11.9-15.9); WHITE BLOOD COUNT 5.5 K/mm3 (4.0-10.0)
[2023-10-03 10:52] LABS: CHLORIDE 110 mmol/L (98-107); POTASSIUM 3.8 mmol/L (3.5-5.1); SODIUM 143 mmol/L (136-145)
[2023-10-03 11:07] LABS: ALBUMIN 3.1 g/dl (3.4-5.0); ANION GAP 7 mmol/L (4-13); BLOOD UREA NITROGEN 9.2 mg/dL (7-18); CALCIUM 8.5 mg/dL (8.5-10.1); CO2 27 mmol/L (21-32); GLUCOSE,RANDOM 89 mg/dL (74-106)
[2023-10-03 11:10] LABS: CREATININE 0.8 mg/dL (0.55-1.3); SGOT/AST 21 U/L (15-37); SGPT/ALT 20 U/L (13-61)
[2023-10-03 11:11] LABS: BILIRUBIN,TOTAL 0.5 mg/dL (0.2-1); TOT PROT 7.1 g/dl (6.4-8.2)
[2023-10-03 11:13] LABS: ALK PHOS 72 U/L (45-117)
[2023-10-03] MEDS ORDERED: SUVOREXANT 10 MG TABLET PO PRN (22:00)
[2023-10-03] MEDS: THIAMINE HCL 100 MG TABLET (FP) PO SCH (22:20)
[2023-10-04] MEDS: LORazepam 1 MG TABLET PO SCH ×4 (06:00→22:24)
[2023-10-04] MEDS: BICTEGRAV/EMTRICIT/TENOFOV (BIKTARVY) 50-200-25 MG TABLET PO SCH (07:18)
[2023-10-04] MEDS: PRENATAL VITAMINS W/ FOLIC ACID TABLET (FP) PO SCH (10:13)
[2023-10-04] MEDS: METHOCARBAMOL 500 MG TABLET PO PRN (10:14)
[2023-10-04] MEDS: risperiDONE 1 MG TABLET PO SCH ×2 (10:14→22:23)
[2023-10-04] MEDS: hydrOXYzine PAMOATE 25 MG CAPSULE (FP) PO PRN (10:14)
[2023-10-04] MEDS: THIAMINE HCL 100 MG TABLET (FP) PO SCH (22:23)
[2023-10-05] MEDS ORDERED: LORazepam 0.5 MG TABLET PO PRN
[2023-10-05] MEDS: LORazepam 0.5 MG TABLET PO SCH ×4 (06:00→22:37)
[2023-10-05] MEDS: BICTEGRAV/EMTRICIT/TENOFOV (BIKTARVY) 50-200-25 MG TABLET PO SCH (07:17)
[2023-10-05] MEDS: PRENATAL VITAMINS W/ FOLIC ACID TABLET (FP) PO SCH (10:26)
[2023-10-05] MEDS: risperiDONE 1 MG TABLET PO SCH ×2 (10:26→22:37)
[2023-10-05] MEDS: hydrOXYzine PAMOATE 25 MG CAPSULE (FP) PO PRN (10:26)
[2023-10-05] MEDS: METHOCARBAMOL 500 MG TABLET PO PRN (10:26)
[2023-10-05] MEDS: THIAMINE HCL 100 MG TABLET (FP) PO SCH (22:38)
[2023-10-06] MEDS ORDERED: LORazepam 0.5 MG TABLET PO ONE (05:00)
[2023-10-06] MEDS: BICTEGRAV/EMTRICIT/TENOFOV (BIKTARVY) 50-200-25 MG TABLET PO SCH (07:06)
[2023-10-06 08:53] VITALS: BP 139/94; PULSE 71; RESP 17; TEMP 97.3
[2023-10-06] MEDS: PRENATAL VITAMINS W/ FOLIC ACID TABLET (FP) PO SCH (09:07)
[2023-10-06] MEDS: risperiDONE 1 MG TABLET PO SCH (09:07)
[2023-10-06] MEDS ORDERED: SULFAMETHOXAZOLE/TRIMETHOPRIM 800MG/160MG D.S. TABLET PO SCH (10:00)
[2023-10-06] MEDS ORDERED: BICTEGRAV/EMTRICIT/TENOFOV (BIKTARVY) 50-200-25 MG TABLET PO SCH (10:00)
== END 2023-10-06 09:18 | disposition home or self-care (01) | DRG 774 ==
LOC: YASAS 13:47 → Y6N 19:07
PROVIDERS: ADMIT Allergy & Immunology; ATTEND Surgery
PROC: HZ2ZZZZ Detoxification Services for Substance Abuse Treatment (ICD-10-PCS; principal; 2023-10-02)
DX: F10.230 Alcohol dependence with withdrawal, uncomplicated (principal); F13.230 Sedative, hypnotic or anxiolytic dependence with withdrawal, uncomplicated; F14.20 Cocaine dependence, uncomplicated; F16.10 Hallucinogen abuse, uncomplicated; F12.10 Cannabis abuse, uncomplicated; F19.282 Other psychoactive substance dependence with psychoactive substance-induced sleep disorder; F19.280 Other psychoactive substance dependence with psychoactive substance-induced anxiety disorder; F25.9 Schizoaffective disorder, unspecified; Z21 Asymptomatic human immunodeficiency virus [HIV] infection status; B18.2 Chronic viral hepatitis C; Z87.891 Personal history of nicotine dependence; Z86.11 Personal history of tuberculosis; Z59.01 Sheltered homelessness
CPT/HCPCS: 36415; 80053; 80307; 85027; 86780; 87635; 87811

== ENCOUNTER 2023-11-02 17:59 | Inpatient (IN) | payer OTHER ==
[2023-11-02 19:55] VITALS: BMI 21.6
[2023-11-02] MEDS ORDERED: IBUPROFEN 600 MG TABLET (FP) PO PRN (21:50)
[2023-11-02] MEDS ORDERED: ACETAMINOPHEN 325 MG TABLET (FP) PO PRN (21:50)
[2023-11-02] MEDS ORDERED: NALOXONE HCL 0.4 MG/ML VIAL IM PRN (21:50)
[2023-11-02] MEDS ORDERED: NICOTINE POLACRILEX 2 MG GUM BUC PRN (21:50)
[2023-11-02] MEDS ORDERED: guaiFENesin 600 MG TABLET.ER (FP) PO PRN (21:50)
[2023-11-02] MEDS ORDERED: DICYCLOMINE HCL 10 MG CAPSULE PO PRN (21:50)
[2023-11-02] MEDS ORDERED: NALOXONE HCL (KLOXXADO) 8 MG SPRAY NS PRN (21:50)
[2023-11-02] MEDS ORDERED: MAGNESIUM HYDROX 2400MG/30ML ORAL SUSPENSION 30 ML CUP PO PRN (21:50)
[2023-11-02] MEDS ORDERED: IBUPROFEN 400 MG TABLET (FP) PO PRN (21:50)
[2023-11-02] MEDS ORDERED: LOPERAMIDE HCL 2 MG CAPSULE PO PRN (21:50)
[2023-11-02] MEDS ORDERED: BENZONATATE 200 MG CAPSULE PO PRN (21:50)
[2023-11-02] MEDS ORDERED: MAG HYDROX/AL HYDROX/SIMETH 30 ML UNIT-DOSE CUP PO PRN (21:50)
[2023-11-02] MEDS ORDERED: BENZOCAINE/MENTHOL (CHLORASEPTIC ) LOZENGE MM PRN (21:50)
[2023-11-02] MEDS ORDERED: POLYETHYLENE GLYCOL (HEALTHYLAX) 3350 17 GM PACKET PO PRN (21:50)
[2023-11-02] MEDS ORDERED: hydrOXYzine PAMOATE 25 MG CAPSULE (FP) PO PRN (21:50)
[2023-11-02] MEDS ORDERED: BISMUTH SUBSALICYLATE 524 MG/30 ML PO PRN (21:50)
[2023-11-02] MEDS ORDERED: METHOCARBAMOL 500 MG TABLET PO PRN (21:50)
[2023-11-02] MEDS ORDERED: ONDANSETRON *ODT* 4 MG TABLET SL PRN (21:50)
[2023-11-02] MEDS: MELATONIN 5 MG TABLETS PO SCH (23:36)
[2023-11-02] MEDS: THIAMINE HCL 100 MG TABLET (FP) PO SCH (23:37)
[2023-11-03] MEDS: NICOTINE 21 MG/24 HOURS TOPICAL PATCH TD SCH (09:40)
[2023-11-03] MEDS: PRENATAL VITAMINS W/ FOLIC ACID TABLET (FP) PO SCH (09:40)
[2023-11-03] MEDS: SULFAMETHOXAZOLE/TRIMETHOPRIM 800MG/160MG D.S. TABLET PO SCH (10:30)
[2023-11-03] MEDS: amLODIPine BESYLATE 5 MG TABLET (FP) PO SCH (10:30)
[2023-11-03] MEDS: diazePAM 5 MG TABLET PO SCH ×3 (10:31→22:39)
[2023-11-03 11:37] LABS: HEMATOCRIT 42.8 % (35.4-49); HEMOGLOBIN 13.4 GM/dL (11.7-16.9); MCH 26.7 pg (25.7-33.7); MCHC 31.2 g/dl (32.0-35.9); MEAN CELL VOLUME 85.7 fl (80-96); MEAN PLT VOLUME 8.2 fl (7.5-11.1); PLATELET COUNT 250 10^3/uL (134-434); RBC 4.99 M/mm3 (4.00-5.60); RDW 16.8 % (11.9-15.9); WHITE BLOOD COUNT 4.3 K/mm3 (4.0-10.0)
[2023-11-03 11:38] LABS: CHLORIDE 108 mmol/L (98-107); POTASSIUM 3.5 mmol/L (3.5-5.1); SODIUM 143 mmol/L (136-145)
[2023-11-03 11:46] LABS: ALBUMIN 3.2 g/dl (3.4-5.0); ANION GAP 7 mmol/L (4-13); BLOOD UREA NITROGEN 9.3 mg/dL (7-18); CALCIUM 8.5 mg/dL (8.5-10.1); CO2 28 mmol/L (21-32); GLUCOSE,RANDOM 79 mg/dL (74-106)
[2023-11-03 11:49] LABS: CREATININE 0.8 mg/dL (0.55-1.3); SGOT/AST 46 U/L (15-37); SGPT/ALT 26 U/L (13-61)
[2023-11-03 11:50] LABS: BILIRUBIN,TOTAL 0.9 mg/dL (0.2-1)
[2023-11-03 11:51] LABS: TOT PROT 7.1 g/dl (6.4-8.2)
[2023-11-03 11:52] LABS: ALK PHOS 67 U/L (45-117)
[2023-11-03] MEDS: BICTEGRAV/EMTRICIT/TENOFOV (BIKTARVY) 50-200-25 MG TABLET PO SCH (12:01)
[2023-11-03] MEDS: THIAMINE HCL 100 MG TABLET (FP) PO SCH (22:38)
[2023-11-03] MEDS: MELATONIN 5 MG TABLETS PO SCH (22:38)
[2023-11-04] MEDS: diazePAM 5 MG TABLET PO SCH ×3 (06:18→22:23)
[2023-11-04] MEDS: BICTEGRAV/EMTRICIT/TENOFOV (BIKTARVY) 50-200-25 MG TABLET PO SCH (07:19)
[2023-11-04] MEDS ORDERED: methaDONE HCL 10 MG TABLET PO ONE (10:23)
[2023-11-04] MEDS: PRENATAL VITAMINS W/ FOLIC ACID TABLET (FP) PO SCH (10:36)
[2023-11-04] MEDS: NICOTINE 21 MG/24 HOURS TOPICAL PATCH TD SCH (10:36)
[2023-11-04] MEDS: amLODIPine BESYLATE 5 MG TABLET (FP) PO SCH (10:36)
[2023-11-04] MEDS: SULFAMETHOXAZOLE/TRIMETHOPRIM 800MG/160MG D.S. TABLET PO SCH (10:36)
[2023-11-04] MEDS: THIAMINE HCL 100 MG TABLET (FP) PO SCH (22:22)
[2023-11-04] MEDS: MELATONIN 5 MG TABLETS PO SCH (22:22)
[2023-11-05] MEDS: diazePAM 5 MG TABLET PO SCH ×2 (05:09→19:04)
[2023-11-05] MEDS: BICTEGRAV/EMTRICIT/TENOFOV (BIKTARVY) 50-200-25 MG TABLET PO SCH (07:16)
[2023-11-05] MEDS: PRENATAL VITAMINS W/ FOLIC ACID TABLET (FP) PO SCH (09:43)
[2023-11-05] MEDS: SULFAMETHOXAZOLE/TRIMETHOPRIM 800MG/160MG D.S. TABLET PO SCH (09:44)
[2023-11-05] MEDS: amLODIPine BESYLATE 5 MG TABLET (FP) PO SCH (09:44)
[2023-11-05] MEDS: NICOTINE 21 MG/24 HOURS TOPICAL PATCH TD SCH (09:44)
[2023-11-05] MEDS: MELATONIN 5 MG TABLETS PO SCH (22:33)
[2023-11-05] MEDS: THIAMINE HCL 100 MG TABLET (FP) PO SCH (22:34)
[2023-11-06] MEDS: diazePAM 5 MG TABLET PO ONE ×2 (05:30→06:11)
[2023-11-06] MEDS: BICTEGRAV/EMTRICIT/TENOFOV (BIKTARVY) 50-200-25 MG TABLET PO SCH ×2 (07:00→08:52)
[2023-11-06 09:16] VITALS: BP 135/80; PULSE 69; RESP 16; TEMP 97.8
[2023-11-06] MEDS: amLODIPine BESYLATE 5 MG TABLET (FP) PO SCH (10:10)
[2023-11-06] MEDS: SULFAMETHOXAZOLE/TRIMETHOPRIM 800MG/160MG D.S. TABLET PO SCH (10:10)
[2023-11-06] MEDS: PRENATAL VITAMINS W/ FOLIC ACID TABLET (FP) PO SCH (10:10)
[2023-11-06] MEDS: NICOTINE 21 MG/24 HOURS TOPICAL PATCH TD SCH (10:10)
== END 2023-11-06 10:14 | disposition home or self-care (01) | DRG 773 ==
LOC: YASAS 17:59 → Y6N 22:59
PROVIDERS: ADMIT Allergy & Immunology; ATTEND Surgery
PROC: HZ2ZZZZ Detoxification Services for Substance Abuse Treatment (ICD-10-PCS; principal; 2023-11-02)
DX: F10.230 Alcohol dependence with withdrawal, uncomplicated (principal); F11.20 Opioid dependence, uncomplicated; F16.20 Hallucinogen dependence, uncomplicated; F25.9 Schizoaffective disorder, unspecified; Z21 Asymptomatic human immunodeficiency virus [HIV] infection status; I10 Essential (primary) hypertension; B18.2 Chronic viral hepatitis C; Z86.11 Personal history of tuberculosis
CPT/HCPCS: 36415; 80053; 80307; 85027; 86780; 87635; 93005; 93010

== ENCOUNTER 2023-12-09 15:49 | Inpatient (IN) | payer OTHER ==
[2023-12-09 16:51] VITALS: BMI 21.9
[2023-12-09] MEDS ORDERED: diazePAM 5 MG TABLET PO PRN (17:31)
[2023-12-09] MEDS ORDERED: METHOCARBAMOL 500 MG TABLET PO PRN (17:31)
[2023-12-09] MEDS ORDERED: ONDANSETRON *ODT* 4 MG TABLET SL PRN (17:31)
[2023-12-09] MEDS ORDERED: POLYETHYLENE GLYCOL (HEALTHYLAX) 3350 17 GM PACKET PO PRN (17:31)
[2023-12-09] MEDS ORDERED: BENZONATATE 200 MG CAPSULE PO PRN (17:31)
[2023-12-09] MEDS ORDERED: ACETAMINOPHEN 325 MG TABLET (FP) PO PRN (17:31)
[2023-12-09] MEDS ORDERED: MAGNESIUM HYDROX 2400MG/30ML ORAL SUSPENSION 30 ML CUP PO PRN (17:31)
[2023-12-09] MEDS ORDERED: IBUPROFEN 400 MG TABLET (FP) PO PRN (17:31)
[2023-12-09] MEDS ORDERED: MAG HYDROX/AL HYDROX/SIMETH 30 ML UNIT-DOSE CUP PO PRN (17:31)
[2023-12-09] MEDS ORDERED: hydrOXYzine PAMOATE 25 MG CAPSULE (FP) PO PRN (17:31)
[2023-12-09] MEDS ORDERED: BISMUTH SUBSALICYLATE 524 MG/30 ML PO PRN (17:31)
[2023-12-09] MEDS ORDERED: NALOXONE HCL (KLOXXADO) 8 MG SPRAY NS PRN (17:31)
[2023-12-09] MEDS ORDERED: guaiFENesin 600 MG TABLET.ER (FP) PO PRN (17:31)
[2023-12-09] MEDS ORDERED: BENZOCAINE/MENTHOL (CHLORASEPTIC ) LOZENGE MM PRN (17:31)
[2023-12-09] MEDS ORDERED: DICYCLOMINE HCL 10 MG CAPSULE PO PRN (17:31)
[2023-12-09] MEDS ORDERED: NALOXONE HCL 0.4 MG/ML VIAL IM PRN (17:31)
[2023-12-09] MEDS ORDERED: LOPERAMIDE HCL 2 MG CAPSULE PO PRN (17:31)
[2023-12-09] MEDS ORDERED: IBUPROFEN 600 MG TABLET (FP) PO PRN (17:31)
[2023-12-09] MEDS: diazePAM 5 MG TABLET PO SCH (22:16)
[2023-12-09] MEDS: MELATONIN 5 MG TABLETS PO SCH (22:16)
[2023-12-09] MEDS: THIAMINE HCL 100 MG TABLET (FP) PO SCH (22:17)
[2023-12-10] MEDS: diazePAM 5 MG TABLET PO SCH ×4 (05:31→22:12)
[2023-12-10 08:29] LABS: CHLORIDE 108 mmol/L (98-107); SODIUM 140 mmol/L (136-145)
[2023-12-10 08:37] LABS: ANION GAP 6 mmol/L (4-13); CALCIUM 8.6 mg/dL (8.5-10.1); CO2 27 mmol/L (21-32); HEMATOCRIT 40.2 % (35.4-49); MCH 27.2 pg (25.7-33.7); MCHC 32.3 g/dl (32.0-35.9); MEAN CELL VOLUME 84.2 fl (80-96); MEAN PLT VOLUME 8.3 fl (7.5-11.1); PLATELET COUNT 214 10^3/uL (134-434); RBC 4.77 M/mm3 (4.00-5.60); RDW 16.4 % (11.9-15.9); WHITE BLOOD COUNT 4.5 K/mm3 (4.0-10.0)
[2023-12-10 08:38] LABS: BLOOD UREA NITROGEN 9.1 mg/dL (7-18); GLUCOSE,RANDOM 106 mg/dL (74-106)
[2023-12-10 08:40] LABS: CREATININE 0.9 mg/dL (0.55-1.3)
[2023-12-10 08:41] LABS: SGOT/AST 23 U/L (15-37); SGPT/ALT 23 U/L (13-61)
[2023-12-10 08:42] LABS: ALK PHOS 74 U/L (45-117); BILIRUBIN,TOTAL 0.2 mg/dL (0.2-1); TOT PROT 6.8 g/dl (6.4-8.2)
[2023-12-10] MEDS: SULFAMETHOXAZOLE/TRIMETHOPRIM 800MG/160MG D.S. TABLET PO SCH (10:13)
[2023-12-10] MEDS: amLODIPine BESYLATE 5 MG TABLET (FP) PO SCH (10:13)
[2023-12-10] MEDS: BICTEGRAV/EMTRICIT/TENOFOV (BIKTARVY) 50-200-25 MG TABLET PO SCH (10:13)
[2023-12-10] MEDS: PRENATAL VITAMINS W/ FOLIC ACID TABLET (FP) PO SCH (10:13)
[2023-12-10] MEDS: THIAMINE HCL 100 MG TABLET (FP) PO SCH (22:12)
[2023-12-10] MEDS: MELATONIN 5 MG TABLETS PO SCH (22:12)
[2023-12-11] MEDS: diazePAM 5 MG TABLET PO SCH ×2 (05:50→14:13)
[2023-12-11] MEDS: SULFAMETHOXAZOLE/TRIMETHOPRIM 800MG/160MG D.S. TABLET PO SCH (10:09)
[2023-12-11] MEDS: BICTEGRAV/EMTRICIT/TENOFOV (BIKTARVY) 50-200-25 MG TABLET PO SCH (10:09)
[2023-12-11] MEDS: amLODIPine BESYLATE 5 MG TABLET (FP) PO SCH (10:09)
[2023-12-11] MEDS: PRENATAL VITAMINS W/ FOLIC ACID TABLET (FP) PO SCH (10:09)
[2023-12-12] MEDS: MELATONIN 5 MG TABLETS PO SCH ×2 (00:31→23:26)
[2023-12-12] MEDS: THIAMINE HCL 100 MG TABLET (FP) PO SCH ×2 (00:32→23:26)
[2023-12-12] MEDS: diazePAM 5 MG TABLET PO SCH ×3 (00:32→19:24)
[2023-12-12] MEDS: SULFAMETHOXAZOLE/TRIMETHOPRIM 800MG/160MG D.S. TABLET PO SCH (10:17)
[2023-12-12] MEDS: amLODIPine BESYLATE 5 MG TABLET (FP) PO SCH (10:17)
[2023-12-12] MEDS: BICTEGRAV/EMTRICIT/TENOFOV (BIKTARVY) 50-200-25 MG TABLET PO SCH (10:18)
[2023-12-12] MEDS: PRENATAL VITAMINS W/ FOLIC ACID TABLET (FP) PO SCH (10:18)
[2023-12-13] MEDS ORDERED: diazePAM 5 MG TABLET PO ONE (06:00)
[2023-12-13] MEDS: SULFAMETHOXAZOLE/TRIMETHOPRIM 800MG/160MG D.S. TABLET PO SCH (10:09)
[2023-12-13] MEDS: BICTEGRAV/EMTRICIT/TENOFOV (BIKTARVY) 50-200-25 MG TABLET PO SCH (10:09)
[2023-12-13] MEDS: PRENATAL VITAMINS W/ FOLIC ACID TABLET (FP) PO SCH (10:09)
[2023-12-13] MEDS: amLODIPine BESYLATE 5 MG TABLET (FP) PO SCH (10:09)
[2023-12-13 13:13] VITALS: BP 109/69; PULSE 89; RESP 18; TEMP 98.2
== END 2023-12-13 13:45 | disposition home or self-care (01) | DRG 774 ==
LOC: YASAS 15:49 → Y3N 18:07
PROVIDERS: ADMIT Allergy & Immunology; ATTEND Surgery
PROC: HZ2ZZZZ Detoxification Services for Substance Abuse Treatment (ICD-10-PCS; principal; 2023-12-09)
DX: F10.230 Alcohol dependence with withdrawal, uncomplicated (principal); F13.230 Sedative, hypnotic or anxiolytic dependence with withdrawal, uncomplicated; F14.20 Cocaine dependence, uncomplicated; Z21 Asymptomatic human immunodeficiency virus [HIV] infection status; I10 Essential (primary) hypertension; Z86.19 Personal history of other infectious and parasitic diseases; Z91.148 Patient's other noncompliance with medication regimen for other reason
CPT/HCPCS: 36415; 80053; 80307; 85027; 86780; 87635

== ENCOUNTER 2023-12-26 16:32 | Inpatient (IN) | payer OTHER ==
[2023-12-26 17:22] VITALS: BMI 21.2
[2023-12-26] MEDS ORDERED: diazePAM 5 MG TABLET PO PRN (18:00)
[2023-12-26] MEDS ORDERED: IBUPROFEN 400 MG TABLET (FP) PO PRN (18:00)
[2023-12-26] MEDS ORDERED: MAGNESIUM HYDROX 2400MG/30ML ORAL SUSPENSION 30 ML CUP PO PRN (18:00)
[2023-12-26] MEDS ORDERED: BISMUTH SUBSALICYLATE 524 MG/30 ML PO PRN (18:00)
[2023-12-26] MEDS ORDERED: guaiFENesin 600 MG TABLET.ER (FP) PO PRN (18:00)
[2023-12-26] MEDS ORDERED: hydrOXYzine PAMOATE 25 MG CAPSULE (FP) PO PRN (18:00)
[2023-12-26] MEDS ORDERED: METHOCARBAMOL 500 MG TABLET PO PRN (18:00)
[2023-12-26] MEDS ORDERED: ONDANSETRON *ODT* 4 MG TABLET SL PRN (18:00)
[2023-12-26] MEDS ORDERED: DICYCLOMINE HCL 10 MG CAPSULE PO PRN (18:00)
[2023-12-26] MEDS ORDERED: LOPERAMIDE HCL 2 MG CAPSULE PO PRN (18:00)
[2023-12-26] MEDS ORDERED: BENZOCAINE/MENTHOL (CHLORASEPTIC ) LOZENGE MM PRN (18:00)
[2023-12-26] MEDS ORDERED: NALOXONE HCL 0.4 MG/ML VIAL IM PRN (18:00)
[2023-12-26] MEDS ORDERED: POLYETHYLENE GLYCOL (HEALTHYLAX) 3350 17 GM PACKET PO PRN (18:00)
[2023-12-26] MEDS ORDERED: MAG HYDROX/AL HYDROX/SIMETH 30 ML UNIT-DOSE CUP PO PRN (18:00)
[2023-12-26] MEDS ORDERED: IBUPROFEN 600 MG TABLET (FP) PO PRN (18:00)
[2023-12-26] MEDS ORDERED: NALOXONE HCL (KLOXXADO) 8 MG SPRAY NS PRN (18:00)
[2023-12-26] MEDS ORDERED: ACETAMINOPHEN 325 MG TABLET (FP) PO PRN (18:00)
[2023-12-26] MEDS ORDERED: BENZONATATE 200 MG CAPSULE PO PRN (18:00)
[2023-12-26] MEDS: diazePAM 5 MG TABLET PO SCH (22:27)
[2023-12-26] MEDS: THIAMINE HCL 100 MG TABLET (FP) PO SCH (22:28)
[2023-12-26] MEDS: MELATONIN 5 MG TABLETS PO SCH (22:28)
[2023-12-27] MEDS: PRENATAL VITAMINS W/ FOLIC ACID TABLET (FP) PO SCH (10:05)
[2023-12-27 11:18] LABS: HEMATOCRIT 38.2 % (35.4-49); HEMOGLOBIN 12.5 GM/dL (11.7-16.9); MCH 27.8 pg (25.7-33.7); MCHC 32.6 g/dl (32.0-35.9); MEAN PLT VOLUME 7.9 fl (7.5-11.1); PLATELET COUNT 226 10^3/uL (134-434); RDW 16.3 % (11.9-15.9); WHITE BLOOD COUNT 4.6 K/mm3 (4.0-10.0)
[2023-12-27 11:46] LABS: CHLORIDE 111 mmol/L (98-107); POTASSIUM 4.5 mmol/L (3.5-5.1); SODIUM 143 mmol/L (136-145)
[2023-12-27 11:51] LABS: ANION GAP 2 mmol/L (4-13); CALCIUM 9.2 mg/dL (8.5-10.1); CO2 30 mmol/L (21-32); GLUCOSE,RANDOM 93 mg/dL (74-106)
[2023-12-27 11:52] LABS: ALBUMIN 3.1 g/dl (3.4-5.0); BLOOD UREA NITROGEN 8.6 mg/dL (7-18)
[2023-12-27 11:54] LABS: CREATININE 0.7 mg/dL (0.55-1.3); SGPT/ALT 19 U/L (13-61)
[2023-12-27 11:55] LABS: BILIRUBIN,TOTAL 0.2 mg/dL (0.2-1); SGOT/AST 21 U/L (15-37); TOT PROT 6.7 g/dl (6.4-8.2)
[2023-12-27 11:56] LABS: ALK PHOS 82 U/L (45-117)
[2023-12-28] MEDS: diazePAM 5 MG TABLET PO SCH (05:48)
[2023-12-29] MEDS: diazePAM 5 MG TABLET PO SCH (05:45)
[2023-12-29] MEDS: SULFAMETHOXAZOLE/TRIMETHOPRIM 800MG/160MG D.S. TABLET PO SCH (10:28)
[2023-12-29] MEDS: BICTEGRAV/EMTRICIT/TENOFOV (BIKTARVY) 50-200-25 MG TABLET PO SCH (10:28)
[2023-12-29] MEDS: amLODIPine BESYLATE 5 MG TABLET (FP) PO SCH (10:28)
[2023-12-29 17:13] VITALS: RESP 18
[2023-12-29 20:38] VITALS: TEMP 98.7
[2023-12-30] MEDS: diazePAM 5 MG TABLET PO ONE (05:47)
[2023-12-30 06:06] VITALS: BP 114/70; PULSE 68
== END 2023-12-30 08:01 | disposition home or self-care (01) | DRG 775 ==
LOC: YASAS 16:32 → Y3N 18:04
PROVIDERS: ADMIT Allergy & Immunology; ATTEND Allergy & Immunology
PROC: HZ2ZZZZ Detoxification Services for Substance Abuse Treatment (ICD-10-PCS; principal; 2023-12-26)
DX: F10.230 Alcohol dependence with withdrawal, uncomplicated (principal); F13.230 Sedative, hypnotic or anxiolytic dependence with withdrawal, uncomplicated; F25.9 Schizoaffective disorder, unspecified; Z21 Asymptomatic human immunodeficiency virus [HIV] infection status; I10 Essential (primary) hypertension; R76.11 Nonspecific reaction to tuberculin skin test without active tuberculosis; Z87.891 Personal history of nicotine dependence; Z86.19 Personal history of other infectious and parasitic diseases; Z88.0 Allergy status to penicillin
CPT/HCPCS: 36415; 80053; 80307; 85027; 86780; 87635; 87811

== ENCOUNTER 2024-01-23 15:21 | Inpatient (IN) | payer OTHER ==
[2024-01-23 16:55] VITALS: BMI 20.5
[2024-01-23] MEDS ORDERED: guaiFENesin 600 MG TABLET.ER (FP) PO PRN (22:05)
[2024-01-23] MEDS ORDERED: BENZONATATE 200 MG CAPSULE PO PRN (22:05)
[2024-01-23] MEDS ORDERED: P-EPHED 60MG/TRIPROLIDI 2.5MG TABLET PO PRN (22:05)
[2024-01-23] MEDS ORDERED: ACETAMINOPHEN 325 MG TABLET (FP) PO PRN (22:05)
[2024-01-23] MEDS ORDERED: LOPERAMIDE HCL 2 MG CAPSULE PO PRN (22:05)
[2024-01-23] MEDS ORDERED: IBUPROFEN 400 MG TABLET (FP) PO PRN (22:05)
[2024-01-23] MEDS ORDERED: DOCUSATE SODIUM 100 MG CAPSULE (FP) PO PRN (22:05)
[2024-01-23] MEDS ORDERED: POLYETHYLENE GLYCOL (HEALTHYLAX) 3350 17 GM PACKET PO PRN (22:05)
[2024-01-23] MEDS ORDERED: BENZOCAINE/MENTHOL (CHLORASEPTIC ) LOZENGE MM PRN (22:05)
[2024-01-23] MEDS ORDERED: MAG HYDROX/AL HYDROX/SIMETH 30 ML UNIT-DOSE CUP PO PRN (22:05)
[2024-01-23] MEDS ORDERED: MAGNESIUM HYDROX 2400MG/30ML ORAL SUSPENSION 30 ML CUP PO PRN (22:05)
[2024-01-23] MEDS ORDERED: IBUPROFEN 600 MG TABLET (FP) PO PRN (22:05)
[2024-01-23] MEDS ORDERED: MELATONIN 5 MG TABLETS ONE (22:35)
[2024-01-23] MEDS: MELATONIN 5 MG TABLETS PO SCH (22:38)
[2024-01-24] MEDS: PRENATAL VITAMINS W/ FOLIC ACID TABLET (FP) PO SCH (11:36)
[2024-01-24] MEDS: SULFAMETHOXAZOLE/TRIMETHOPRIM 800MG/160MG D.S. TABLET PO SCH (11:36)
[2024-01-24] MEDS: amLODIPine BESYLATE 5 MG TABLET (FP) PO SCH (11:36)
[2024-01-24] MEDS: BICTEGRAV/EMTRICIT/TENOFOV (BIKTARVY) 50-200-25 MG TABLET PO SCH (11:36)
[2024-01-24] MEDS: THIAMINE HCL 100 MG TABLET (FP) PO SCH (21:36)
[2024-01-29 06:39] VITALS: BP 109/78; PULSE 91; RESP 18; TEMP 98.2
== END 2024-01-29 08:00 | disposition left against medical advice (07) | DRG 770 ==
LOC: YASAS 15:21 → Y3NR 22:07 → Y3E 01-24 09:34
PROVIDERS: ADMIT Allergy & Immunology; ATTEND Psychiatry & Neurology Pain Medicine
PROC: HZ42ZZZ Group Counseling for Substance Abuse Treatment, Cognitive-Behavioral (ICD-10-PCS; principal; 2024-01-23)
DX: F10.20 Alcohol dependence, uncomplicated (principal); F14.20 Cocaine dependence, uncomplicated; F20.9 Schizophrenia, unspecified; Z21 Asymptomatic human immunodeficiency virus [HIV] infection status; I10 Essential (primary) hypertension; Z86.11 Personal history of tuberculosis; Z86.19 Personal history of other infectious and parasitic diseases; Z87.81 Personal history of (healed) traumatic fracture; Z88.0 Allergy status to penicillin
CPT/HCPCS: 87635

== ENCOUNTER 2024-06-04 10:38 | Inpatient (IN) | payer OTHER ==
[2024-06-04 11:05] VITALS: BMI 19.1
[2024-06-04] MEDS ORDERED: MAG HYDROX/AL HYDROX/SIMETH 30 ML UNIT-DOSE CUP PO PRN (11:37)
[2024-06-04] MEDS ORDERED: BENZOCAINE/MENTHOL (CHLORASEPTIC ) LOZENGE MM PRN (11:37)
[2024-06-04] MEDS ORDERED: MAGNESIUM HYDROX 2400MG/30ML ORAL SUSPENSION 30 ML CUP PO PRN (11:37)
[2024-06-04] MEDS ORDERED: LOPERAMIDE HCL 2 MG CAPSULE PO PRN (11:37)
[2024-06-04] MEDS ORDERED: hydrOXYzine PAMOATE 25 MG CAPSULE (FP) PO PRN (11:37)
[2024-06-04] MEDS ORDERED: BISMUTH SUBSALICYLATE 262 MG/15 ML BTL PO PRN (11:37)
[2024-06-04] MEDS ORDERED: NALOXONE HCL 0.4 MG/ML VIAL IM PRN (11:37)
[2024-06-04] MEDS ORDERED: DICYCLOMINE HCL 10 MG CAPSULE PO PRN (11:37)
[2024-06-04] MEDS ORDERED: IBUPROFEN 600 MG TABLET (FP) PO PRN (11:37)
[2024-06-04] MEDS ORDERED: BENZONATATE 200 MG CAPSULE PO PRN (11:37)
[2024-06-04] MEDS ORDERED: chlordiazePOXIDE HCL 25 MG CAPSULE PO PRN (11:37)
[2024-06-04] MEDS ORDERED: METHOCARBAMOL 500 MG TABLET PO PRN (11:37)
[2024-06-04] MEDS ORDERED: NALOXONE (NARCAN) HCL 4 MG/0.1 ML SPRAY NS PRN (11:37)
[2024-06-04] MEDS ORDERED: IBUPROFEN 400 MG TABLET (FP) PO PRN (11:37)
[2024-06-04] MEDS ORDERED: ONDANSETRON *ODT* 4 MG TABLET SL PRN (11:37)
[2024-06-04] MEDS ORDERED: ACETAMINOPHEN 325 MG TABLET (FP) PO PRN (11:37)
[2024-06-04] MEDS ORDERED: guaiFENesin 600 MG TABLET.ER (FP) PO PRN (11:37)
[2024-06-04] MEDS ORDERED: POLYETHYLENE GLYCOL (HEALTHYLAX) 3350 17 GM PACKET PO PRN (11:37)
[2024-06-04] MEDS ORDERED: chlordiazePOXIDE HCL 25 MG CAPSULE ONE (12:19)
[2024-06-04] MEDS ORDERED: PRENATAL VITAMINS W/ FOLIC ACID TABLET (FP) PO ONE (12:19)
[2024-06-04] MEDS: PRENATAL VITAMINS W/ FOLIC ACID TABLET (FP) PO SCH (12:22)
[2024-06-04] MEDS: chlordiazePOXIDE HCL 25 MG CAPSULE PO ONE (12:22)
[2024-06-04] MEDS: chlordiazePOXIDE HCL 25 MG CAPSULE PO SCH (12:24)
[2024-06-04] MEDS: MELATONIN 5 MG TABLETS PO SCH (22:35)
[2024-06-04] MEDS: THIAMINE 100 MG TABLET PO SCH (22:35)
[2024-06-05] MEDS: SULFAMETHOXAZOLE/TRIMETHOPRIM 800MG/160MG D.S. TABLET PO SCH (10:31)
[2024-06-05] MEDS: amLODIPine BESYLATE 5 MG TABLET (FP) PO SCH (10:32)
[2024-06-05] MEDS: BICTEGRAV/EMTRICIT/TENOFOV (BIKTARVY) 50-200-25 MG TABLET PO SCH (10:34)
[2024-06-05 11:12] LABS: HEMATOCRIT 36.8 % (35.4-49); MCH 27.5 pg (25.7-33.7); MCHC 32.5 g/dl (32.0-35.9); MEAN CELL VOLUME 84.5 fl (80-96); PLATELET COUNT 296 10^3/uL (134-434); RBC 4.35 M/mm3 (4.00-5.60); RDW 17.1 % (11.9-15.9)
[2024-06-05 11:19] LABS: CHLORIDE 110 mmol/L (98-107); POTASSIUM 4.1 mmol/L (3.5-5.1); SODIUM 142 mmol/L (136-145)
[2024-06-05 11:29] LABS: CALCIUM 8.5 mg/dL (8.5-10.1)
[2024-06-05 11:30] LABS: ANION GAP 3 mmol/L (4-13); BLOOD UREA NITROGEN 11.3 mg/dL (7-18); CO2 29 mmol/L (21-32); GLUCOSE,RANDOM 88 mg/dL (74-106)
[2024-06-05 11:31] LABS: ALBUMIN 2.9 g/dl (3.4-5.0)
[2024-06-05 11:33] LABS: CREATININE 0.6 mg/dL (0.55-1.3); SGOT/AST 21 U/L (15-37)
[2024-06-05 11:34] LABS: SGPT/ALT 20 U/L (13-61); TOT PROT 6.5 g/dl (6.4-8.2)
[2024-06-05 11:36] LABS: BILIRUBIN,TOTAL 0.3 mg/dL (0.2-1)
[2024-06-05 11:37] LABS: ALK PHOS 76 U/L (45-117)
[2024-06-06] MEDS: chlordiazePOXIDE HCL 25 MG CAPSULE PO SCH (05:54)
[2024-06-06 17:11] VITALS: BP 140/89; PULSE 90; RESP 16; TEMP 97.3
[2024-06-07] MEDS ORDERED: chlordiazePOXIDE HCL 10 MG CAPSULE PO PRN
[2024-06-07] MEDS ORDERED: chlordiazePOXIDE HCL 10 MG CAPSULE PO SCH (05:00)
[2024-06-08] MEDS ORDERED: chlordiazePOXIDE HCL 10 MG CAPSULE PO SCH (05:00)
[2024-06-09] MEDS ORDERED: chlordiazePOXIDE HCL 10 MG CAPSULE PO ONE (05:00)
== END 2024-06-06 19:01 | disposition left against medical advice (07) | DRG 770 ==
LOC: YASAS 10:38 → Y3N 12:02
PROVIDERS: ADMIT Allergy & Immunology; ATTEND Surgery
PROC: HZ2ZZZZ Detoxification Services for Substance Abuse Treatment (ICD-10-PCS; principal; 2024-06-04)
DX: F10.230 Alcohol dependence with withdrawal, uncomplicated (principal); F13.20 Sedative, hypnotic or anxiolytic dependence, uncomplicated; F14.20 Cocaine dependence, uncomplicated; F12.20 Cannabis dependence, uncomplicated; F17.210 Nicotine dependence, cigarettes, uncomplicated; Z21 Asymptomatic human immunodeficiency virus [HIV] infection status; G47.00 Insomnia, unspecified; Z91.85 Personal history of military service; Z86.11 Personal history of tuberculosis; Z79.899 Other long term (current) drug therapy; Z88.0 Allergy status to penicillin
CPT/HCPCS: 36415; 80053; 80305; 80307; 82140; 85027; 86780; 93005; 93010

== ENCOUNTER 2024-07-09 13:21 | Inpatient (IN) | payer OTHER ==
[2024-07-09 13:53] VITALS: BMI 18.2
[2024-07-09] MEDS ORDERED: NALOXONE (NARCAN) HCL 4 MG/0.1 ML SPRAY NS PRN (16:51)
[2024-07-09] MEDS ORDERED: hydrOXYzine PAMOATE 25 MG CAPSULE (FP) PO PRN (16:51)
[2024-07-09] MEDS ORDERED: MAG HYDROX/AL HYDROX/SIMETH 30 ML UNIT-DOSE CUP PO PRN (16:51)
[2024-07-09] MEDS ORDERED: ONDANSETRON *ODT* 4 MG TABLET SL PRN (16:51)
[2024-07-09] MEDS ORDERED: METHOCARBAMOL 500 MG TABLET PO PRN (16:51)
[2024-07-09] MEDS ORDERED: BENZONATATE 200 MG CAPSULE PO PRN (16:51)
[2024-07-09] MEDS ORDERED: MAGNESIUM HYDROX 2400MG/30ML ORAL SUSPENSION 30 ML CUP PO PRN (16:51)
[2024-07-09] MEDS ORDERED: LOPERAMIDE HCL 2 MG CAPSULE PO PRN (16:51)
[2024-07-09] MEDS ORDERED: DICYCLOMINE HCL 10 MG CAPSULE PO PRN (16:51)
[2024-07-09] MEDS ORDERED: BENZOCAINE/MENTHOL (CHLORASEPTIC ) LOZENGE MM PRN (16:51)
[2024-07-09] MEDS ORDERED: NALOXONE HCL 0.4 MG/ML VIAL IM PRN (16:51)
[2024-07-09] MEDS ORDERED: guaiFENesin 600 MG TABLET.ER (FP) PO PRN (16:51)
[2024-07-09] MEDS ORDERED: ACETAMINOPHEN 325 MG TABLET (FP) PO PRN (16:51)
[2024-07-09] MEDS ORDERED: IBUPROFEN 600 MG TABLET (FP) PO PRN (16:51)
[2024-07-09] MEDS ORDERED: BISMUTH SUBSALICYLATE 524 MG/30 ML PO PRN (16:51)
[2024-07-09] MEDS ORDERED: diazePAM 5 MG TABLET PO PRN (16:51)
[2024-07-09] MEDS ORDERED: POLYETHYLENE GLYCOL (HEALTHYLAX) 3350 17 GM PACKET PO PRN (16:51)
[2024-07-09] MEDS ORDERED: IBUPROFEN 400 MG TABLET (FP) PO PRN (16:51)
[2024-07-09] MEDS ORDERED: diazePAM 5 MG TABLET ONE (17:10)
[2024-07-09] MEDS: diazePAM 5 MG TABLET PO SCH (17:13)
[2024-07-09] MEDS: THIAMINE 100 MG TABLET PO SCH (22:30)
[2024-07-09] MEDS: MELATONIN 5 MG TABLETS PO SCH (22:31)
[2024-07-10] MEDS: PRENATAL VITAMINS W/ FOLIC ACID TABLET (FP) PO SCH (10:15)
[2024-07-10] MEDS: BICTEGRAV/EMTRICIT/TENOFOV (BIKTARVY) 50-200-25 MG TABLET PO SCH (10:15)
[2024-07-10] MEDS: SULFAMETHOXAZOLE/TRIMETHOPRIM 800MG/160MG D.S. TABLET PO SCH (10:15)
[2024-07-10 10:33] LABS: CHLORIDE 107 mmol/L (98-107); HEMATOCRIT 38.6 % (35.4-49); HEMOGLOBIN 12.5 GM/dL (11.7-16.9); MCH 27.5 pg (25.7-33.7); MCHC 32.3 g/dl (32.0-35.9); MEAN CELL VOLUME 85.4 fl (80-96); MEAN PLT VOLUME 8.2 fl (7.5-11.1); PLATELET COUNT 243 10^3/uL (134-434); POTASSIUM 4.6 mmol/L (3.5-5.1); RBC 4.53 M/mm3 (4.00-5.60); RDW 17.1 % (11.9-15.9); SODIUM 142 mmol/L (136-145); WHITE BLOOD COUNT 4.7 K/mm3 (4.0-10.0)
[2024-07-10 10:35] LABS: CALCIUM 8.7 mg/dL (8.5-10.1)
[2024-07-10 10:36] LABS: ALBUMIN 3.1 g/dl (3.4-5.0); ANION GAP 4 mmol/L (4-13); BLOOD UREA NITROGEN 13.4 mg/dL (7-18); CO2 31 mmol/L (21-32); GLUCOSE,RANDOM 87 mg/dL (74-106)
[2024-07-10 10:39] LABS: CREATININE 0.8 mg/dL (0.55-1.3); SGOT/AST 20 U/L (15-37); SGPT/ALT 19 U/L (13-61)
[2024-07-10 10:40] LABS: BILIRUBIN,TOTAL 0.2 mg/dL (0.2-1)
[2024-07-10 10:41] LABS: TOT PROT 6.8 g/dl (6.4-8.2)
[2024-07-10 10:42] LABS: ALK PHOS 76 U/L (45-117)
[2024-07-10 21:09] VITALS: RESP 18
[2024-07-10] MEDS: risperiDONE 1 MG TABLET PO SCH (22:45)
[2024-07-11] MEDS: diazePAM 5 MG TABLET PO SCH (05:36)
[2024-07-11 06:06] VITALS: BP 138/80; PULSE 68; TEMP 96.9
[2024-07-12] MEDS ORDERED: diazePAM 5 MG TABLET PO SCH (06:00)
[2024-07-13] MEDS ORDERED: diazePAM 5 MG TABLET PO ONE (06:00)
== END 2024-07-11 09:36 | disposition left against medical advice (07) | DRG 770 ==
LOC: YASAS 13:21 → Y6N 17:10
PROVIDERS: ADMIT Allergy & Immunology; ATTEND Surgery
PROC: HZ2ZZZZ Detoxification Services for Substance Abuse Treatment (ICD-10-PCS; principal; 2024-07-09)
DX: F13.230 Sedative, hypnotic or anxiolytic dependence with withdrawal, uncomplicated (principal); F14.20 Cocaine dependence, uncomplicated; F12.20 Cannabis dependence, uncomplicated; F16.10 Hallucinogen abuse, uncomplicated; F25.9 Schizoaffective disorder, unspecified; F19.980 Other psychoactive substance use, unspecified with psychoactive substance-induced anxiety disorder; I10 Essential (primary) hypertension; Z21 Asymptomatic human immunodeficiency virus [HIV] infection status; B18.2 Chronic viral hepatitis C; Z87.891 Personal history of nicotine dependence; Z86.11 Personal history of tuberculosis; Z88.0 Allergy status to penicillin; Z56.0 Unemployment, unspecified
CPT/HCPCS: 36415; 80053; 80305; 80307; 85027; 86780; 93005; 93010

== ENCOUNTER 2024-12-02 11:32 | Inpatient (IN) | payer OTHER ==
[2024-12-02 11:46] VITALS: BMI 27.3
[2024-12-02] MEDS ORDERED: LOPERAMIDE HCL 2 MG CAPSULE PO PRN (12:41)
[2024-12-02] MEDS ORDERED: IBUPROFEN 600 MG TABLET (FP) PO PRN (12:41)
[2024-12-02] MEDS ORDERED: ACETAMINOPHEN 325 MG TABLET (FP) PO PRN (12:41)
[2024-12-02] MEDS ORDERED: ONDANSETRON *ODT* 4 MG TABLET SL PRN (12:41)
[2024-12-02] MEDS ORDERED: MAG HYDROX/AL HYDROX/SIMETH 30 ML UNIT-DOSE CUP PO PRN (12:41)
[2024-12-02] MEDS ORDERED: BENZONATATE 200 MG CAPSULE PO PRN (12:41)
[2024-12-02] MEDS ORDERED: DICYCLOMINE HCL 10 MG CAPSULE PO PRN (12:41)
[2024-12-02] MEDS ORDERED: NALOXONE (NARCAN) HCL 4 MG/0.1 ML SPRAY NS PRN (12:41)
[2024-12-02] MEDS ORDERED: IBUPROFEN 400 MG TABLET (FP) PO PRN (12:41)
[2024-12-02] MEDS ORDERED: MAGNESIUM HYDROX 2400MG/30ML ORAL SUSPENSION 30 ML CUP PO PRN (12:41)
[2024-12-02] MEDS ORDERED: guaiFENesin 600 MG TABLET.ER (FP) PO PRN (12:41)
[2024-12-02] MEDS ORDERED: BISMUTH SUBSALICYLATE 262 MG/15 ML BTL PO PRN (12:41)
[2024-12-02] MEDS ORDERED: hydrOXYzine PAMOATE 25 MG CAPSULE (FP) PO PRN (12:41)
[2024-12-02] MEDS ORDERED: POLYETHYLENE GLYCOL (HEALTHYLAX) 3350 17 GM PACKET PO PRN (12:41)
[2024-12-02] MEDS: PRENATAL VITAMINS W/ FOLIC ACID TABLET (FP) PO SCH (14:19)
[2024-12-02] MEDS: chlordiazePOXIDE HCL 25 MG CAPSULE PO PRN (14:19)
[2024-12-02] MEDS: ACAMPROSATE CALCIUM 333 MG TABLET.DR PO SCH (14:53)
[2024-12-02] MEDS: chlordiazePOXIDE HCL 25 MG CAPSULE PO SCH (17:24)
[2024-12-02] MEDS: METHOCARBAMOL 500 MG TABLET PO PRN (22:45)
[2024-12-02] MEDS: MELATONIN 5 MG TABLETS PO SCH (22:45)
[2024-12-02] MEDS: THIAMINE 100 MG TABLET PO SCH (22:45)
[2024-12-03] MEDS: BICTEGRAV/EMTRICIT/TENOFOV (BIKTARVY) 50-200-25 MG TABLET PO SCH (08:11)
[2024-12-03] MEDS: SULFAMETHOXAZOLE/TRIMETHOPRIM 800MG/160MG D.S. TABLET PO SCH (10:52)
[2024-12-03 11:34] LABS: HEMATOCRIT 38.8 % (35.4-49); HEMOGLOBIN 12.6 GM/dL (11.7-16.9); MCHC 32.5 g/dl (32.0-35.9); MEAN CELL VOLUME 82.9 fl (80-96); MEAN PLT VOLUME 8.1 fl (7.5-11.1); PLATELET COUNT 313 10^3/uL (134-434); RBC 4.68 M/mm3 (4.00-5.60); RDW 19.4 % (11.9-15.9); WHITE BLOOD COUNT 7.9 K/mm3 (4.0-10.0)
[2024-12-03 14:15] LABS: POTASSIUM 3.7 mmol/L (3.5-5.1)
[2024-12-03 14:21] LABS: ALBUMIN 3.4 g/dl (3.4-5.0); CALCIUM 9.3 mg/dL (8.5-10.1)
[2024-12-03 14:24] LABS: CREATININE 0.9 mg/dL (0.55-1.3)
[2024-12-03 14:26] LABS: BILIRUBIN,TOTAL 0.8 mg/dL (0.2-1); TOT PROT 7.9 g/dl (6.4-8.2)
[2024-12-04] MEDS: BENZOCAINE/MENTHOL (CHLORASEPTIC ) LOZENGE MM PRN (00:07)
[2024-12-04] MEDS: chlordiazePOXIDE HCL 25 MG CAPSULE PO SCH (05:42)
[2024-12-04 08:39] VITALS: BP 136/93; PULSE 96; RESP 18; TEMP 97.7
[2024-12-05] MEDS ORDERED: chlordiazePOXIDE HCL 10 MG CAPSULE PO PRN
[2024-12-05] MEDS ORDERED: chlordiazePOXIDE HCL 10 MG CAPSULE PO SCH (05:00)
[2024-12-06] MEDS ORDERED: chlordiazePOXIDE HCL 10 MG CAPSULE PO SCH (05:00)
[2024-12-07] MEDS ORDERED: chlordiazePOXIDE HCL 10 MG CAPSULE PO ONE (05:00)
== END 2024-12-04 10:15 | disposition left against medical advice (07) | DRG 770 ==
LOC: YASAS 11:32 → Y6N 13:55
PROVIDERS: ADMIT Allergy & Immunology; ATTEND Surgery
PROC: HZ2ZZZZ Detoxification Services for Substance Abuse Treatment (ICD-10-PCS; principal; 2024-12-02)
DX: F10.230 Alcohol dependence with withdrawal, uncomplicated (principal); F13.230 Sedative, hypnotic or anxiolytic dependence with withdrawal, uncomplicated; F14.20 Cocaine dependence, uncomplicated; F12.20 Cannabis dependence, uncomplicated; F25.9 Schizoaffective disorder, unspecified; Z21 Asymptomatic human immunodeficiency virus [HIV] infection status; Z86.11 Personal history of tuberculosis; Z79.899 Other long term (current) drug therapy
CPT/HCPCS: 36415; 80053; 80305; 80307; 85027; 86780; 93005; 93010

== ENCOUNTER 2025-05-03 10:52 | Inpatient (IN) | payer OTHER ==
[2025-05-03 11:10] VITALS: BMI 22.1
[2025-05-03] MEDS ORDERED: NICOTINE POLACRILEX 2 MG GUM BUC PRN (11:25)
[2025-05-03] MEDS ORDERED: BENZOCAINE/MENTHOL (CHLORASEPTIC ) LOZENGE MM PRN (11:25)
[2025-05-03] MEDS ORDERED: NICOTINE POLACRILEX 2 MG LOZENGE BC PRN (11:25)
[2025-05-03] MEDS ORDERED: guaiFENesin 600 MG TABLET.ER (FP) PO PRN (11:25)
[2025-05-03] MEDS ORDERED: BENZONATATE 200 MG CAPSULE PO PRN (11:25)
[2025-05-03] MEDS ORDERED: IBUPROFEN 400 MG TABLET (FP) PO PRN (11:25)
[2025-05-03] MEDS ORDERED: NALOXONE (NARCAN) HCL 4 MG/0.1 ML SPRAY NS PRN (11:25)
[2025-05-03] MEDS ORDERED: IBUPROFEN 600 MG TABLET (FP) PO PRN (11:25)
[2025-05-03] MEDS ORDERED: LOPERAMIDE HCL 2 MG CAPSULE PO PRN (11:25)
[2025-05-03] MEDS ORDERED: MAGNESIUM HYDROX 2400MG/30ML ORAL SUSPENSION 30 ML CUP PO PRN (11:25)
[2025-05-03] MEDS ORDERED: ACETAMINOPHEN 325 MG TABLET (FP) PO PRN (11:25)
[2025-05-03] MEDS ORDERED: POLYETHYLENE GLYCOL (HEALTHYLAX) 3350 17 GM PACKET PO PRN (11:25)
[2025-05-03 18:44] LABS: URINE APPEARANCE CLEAR; URINE BILIRUBIN NEGATIVE (NEGATIVE); URINE COLOR YELLOW; URINE GLUCOSE (UA) NEGATIVE (NEGATIVE); URINE KETONE NEGATIVE (NEGATIVE); URINE LEUK ESTERASE NEGATIVE (NEGATIVE); URINE NITRITE NEGATIVE (NEGATIVE); URINE PROTEIN NEGATIVE (NEGATIVE); URINE UROBILINOGEN 0.2 mg/dL (0.2-1.0)
[2025-05-03] MEDS: THIAMINE 100 MG TABLET PO SCH (21:14)
[2025-05-03] MEDS: RIVAROXABAN 15 MG TABLET PO SCH (21:15)
[2025-05-03] MEDS: MELATONIN 5 MG TABLETS PO SCH (21:15)
[2025-05-04] MEDS: BICTEGRAV/EMTRICIT/TENOFOV (BIKTARVY) 50-200-25 MG TABLET PO SCH (07:07)
[2025-05-04] MEDS: PRENATAL VITAMINS W/ FOLIC ACID TABLET (FP) PO SCH (10:22)
[2025-05-04] MEDS: SULFAMETHOXAZOLE/TRIMETHOPRIM 800MG/160MG D.S. TABLET PO SCH (10:22)
[2025-05-04 11:38] LABS: HEMATOCRIT 33.6 % (40.1-51.0); HEMOGLOBIN 10.7 g/dL (13.7-17.5); MCHC 31.8 g/dl (32.3-36.5); MEAN PLT VOLUME 10.4 fl (9.4-12.4); PLATELET COUNT 271 x10^3/uL (163-337); RDW 17.5 % (12.2-16.4)
[2025-05-04 11:40] LABS: POTASSIUM 4.5 mmol/L (3.5-5.1)
[2025-05-04 11:44] LABS: BLOOD UREA NITROGEN 7.9 mg/dL (7-18); CALCIUM 9.3 mg/dL (8.5-10.1)
[2025-05-04 11:47] LABS: BILIRUBIN,TOTAL 0.3 mg/dL (0.2-1); CREATININE 0.8 mg/dL (0.55-1.3)
[2025-05-04 11:49] LABS: TOT PROT 6.6 g/dl (6.4-8.2)
[2025-05-04] MEDS: MAG HYDROX/AL HYDROX/SIMETH 30 ML UNIT-DOSE CUP PO PRN (14:33)
[2025-05-05 05:48] VITALS: RESP 16; TEMP 97.5
[2025-05-05 09:31] VITALS: BP 133/83; PULSE 68
[2025-05-05] MEDS: PATIENT'S OWN MEDICATION (NON-FORMULARY) (Cariprazine Hcl [Vraylar] 3 MG Capsule) PO SCH (11:12)
[2025-05-05] MEDS: MEGESTROL ACETATE 400 MG/10 ML UNIT DOSE CUP PO SCH (11:15)
== END 2025-05-05 11:19 | disposition left against medical advice (07) | DRG 770 ==
LOC: YASAS 10:52 → Y3W 11:58
PROVIDERS: ADMIT Psychiatry & Neurology Pain Medicine; ATTEND Psychiatry & Neurology Pain Medicine
PROC: HZ42ZZZ Group Counseling for Substance Abuse Treatment, Cognitive-Behavioral (ICD-10-PCS; principal; 2025-05-03)
DX: F10.20 Alcohol dependence, uncomplicated (principal); F13.20 Sedative, hypnotic or anxiolytic dependence, uncomplicated; F14.20 Cocaine dependence, uncomplicated; F12.20 Cannabis dependence, uncomplicated; F17.210 Nicotine dependence, cigarettes, uncomplicated; F31.9 Bipolar disorder, unspecified; F25.9 Schizoaffective disorder, unspecified; F19.24 Other psychoactive substance dependence with psychoactive substance-induced mood disorder; Z21 Asymptomatic human immunodeficiency virus [HIV] infection status; I10 Essential (primary) hypertension; Z86.718 Personal history of other venous thrombosis and embolism; Z79.01 Long term (current) use of anticoagulants; Z86.11 Personal history of tuberculosis; Z79.899 Other long term (current) drug therapy; Z88.0 Allergy status to penicillin
CPT/HCPCS: 36415; 71046-TC-FY; 80053; 80305; 80307; 81003; 85027; 86780; 87811; 93005; 93010

== ENCOUNTER 2025-09-08 10:59 | Inpatient (IN) | payer OTHER ==
[2025-09-08 11:16] VITALS: BMI 21.2
[2025-09-08] MEDS ORDERED: NALOXONE (NARCAN) HCL 4 MG/0.1 ML SPRAY NS PRN (11:20)
[2025-09-08] MEDS ORDERED: IBUPROFEN 400 MG TABLET (FP) PO PRN (11:20)
[2025-09-08] MEDS ORDERED: ONDANSETRON *ODT* 4 MG TABLET SL PRN (11:20)
[2025-09-08] MEDS ORDERED: MAG HYDROX/AL HYDROX/SIMETH 30 ML UNIT-DOSE CUP PO PRN (11:20)
[2025-09-08] MEDS ORDERED: POLYETHYLENE GLYCOL (HEALTHYLAX) 3350 17 GM PACKET PO PRN (11:20)
[2025-09-08] MEDS ORDERED: LOPERAMIDE HCL 2 MG CAPSULE PO PRN (11:20)
[2025-09-08] MEDS ORDERED: BENZOCAINE/MENTHOL (CHLORASEPTIC ) LOZENGE MM PRN (11:20)
[2025-09-08] MEDS ORDERED: hydrOXYzine PAMOATE 25 MG CAPSULE (FP) PO PRN (11:20)
[2025-09-08] MEDS ORDERED: BISMUTH SUBSALICYLATE 524 MG/30 ML PO PRN (11:20)
[2025-09-08] MEDS ORDERED: METHOCARBAMOL 500 MG TABLET PO PRN (11:20)
[2025-09-08] MEDS ORDERED: guaiFENesin 600 MG TABLET.ER (FP) PO PRN (11:20)
[2025-09-08] MEDS ORDERED: IBUPROFEN 600 MG TABLET (FP) PO PRN (11:20)
[2025-09-08] MEDS ORDERED: BENZONATATE 200 MG CAPSULE PO PRN (11:20)
[2025-09-08] MEDS ORDERED: DICYCLOMINE HCL 10 MG CAPSULE PO PRN (11:20)
[2025-09-08] MEDS ORDERED: MAGNESIUM HYDROX 2400MG/30ML ORAL SUSPENSION 30 ML CUP PO PRN (11:20)
[2025-09-08] MEDS ORDERED: PRENATAL VITAMINS W/ FOLIC ACID TABLET (FP) PO ONE (12:02)
[2025-09-08] MEDS: PRENATAL VITAMINS W/ FOLIC ACID TABLET (FP) PO SCH (12:04)
[2025-09-08] MEDS: ACETAMINOPHEN 325 MG TABLET (FP) PO PRN (17:50)
[2025-09-08] MEDS: MELATONIN 5 MG TABLETS PO SCH (22:39)
[2025-09-08] MEDS: THIAMINE 100 MG TABLET PO SCH (22:39)
[2025-09-09 09:52] LABS: MCHC 31.0 g/dl (32.3-36.5); MEAN CELL VOLUME 85.0 fl (79.0-92.2); MEAN PLT VOLUME 10.1 fl (9.4-12.4); RDW 16.6 % (12.2-16.4)
[2025-09-09] MEDS ORDERED: MEGESTROL ACETATE PO SCH (10:00)
[2025-09-09] MEDS ORDERED: [UNRECOGNIZED DRUG - OTHER] PO SCH (10:00)
[2025-09-09 10:22] LABS: TOT PROT 6.5 g/dl (6.4-8.2)
[2025-09-09 10:23] LABS: CO2 26 mmol/L (21-32)
[2025-09-09 10:24] LABS: ALK PHOS 72 U/L (40-150)
[2025-09-09 10:27] LABS: CREATININE 0.84 mg/dL (0.55-1.3); SGOT/AST 23 U/L (5-34); SGPT/ALT 12 U/L (0-55)
[2025-09-09 11:11] LABS: GLUCOSE,RANDOM 86 mg/dL (74-106)
[2025-09-09] MEDS: BICTEGRAV/EMTRICIT/TENOFOV (BIKTARVY) 50-200-25 MG TABLET PO SCH (11:26)
[2025-09-09] MEDS: SULFAMETHOXAZOLE/TRIMETHOPRIM 800MG/160MG D.S. TABLET PO SCH (11:26)
[2025-09-09] MEDS: MEGESTROL ACETATE 400 MG/10 ML UNIT DOSE CUP PO SCH (11:41)
[2025-09-10 09:44] VITALS: RESP 16
[2025-09-11 08:01] VITALS: BP 126/86; PULSE 80; TEMP 97.3
== END 2025-09-11 09:05 | disposition home or self-care (01) | DRG 775 ==
LOC: YASAS 10:59 → Y6N 11:46
PROVIDERS: ADMIT Allergy & Immunology; ATTEND Allergy & Immunology
PROC: HZ2ZZZZ Detoxification Services for Substance Abuse Treatment (ICD-10-PCS; principal; 2025-09-08)
DX: F10.230 Alcohol dependence with withdrawal, uncomplicated (principal); I10 Essential (primary) hypertension; Z21 Asymptomatic human immunodeficiency virus [HIV] infection status; F25.9 Schizoaffective disorder, unspecified; F17.210 Nicotine dependence, cigarettes, uncomplicated; F31.9 Bipolar disorder, unspecified; M54.89 Other dorsalgia
CPT/HCPCS: 36415; 80053; 80305; 80307; 85027; 86780; 93005; 93010